=== PATIENT | female | born 1935 | race Caucasian/White ===

== ENCOUNTER 2019-10-24 13:22 | Outpatient (RCR) | payer MEDICARE, BC, SELFPAY ==
[2019-10-24 14:17] LABS: Basophils % 0.5 %; Eosinophils % 0.5 %; Hematocrit 42.1 % (37.0-47.0); Hemoglobin 13.9 g/dL (11.5-15.3); Lymphocytes # 2.4 10^3/uL (0.8-4.8); Lymphocytes % 27.7 %; Mean Corpuscular Hemoglobin 36.4 pg (28.0-34.0); Mean Corpuscular Volume 110.2 fL (81-99); Mean Platelet Volume 10.5 fL (7.4-10.4); Monocytes # 0.6 10^3/uL (0.2-0.9); Monocytes % 7.3 %; Neutrophils # 5.6 10^3/uL (1.8-7.7); Neutrophils % 63.7 %; Nucleated Red Blood Cells % 0 %; Platelet Count 510 10^3/cmm (130-400); Red Blood Count 3.82 10^6/uL (4.1-5.3); White Blood Count 8.8 10^3/uL (4.0-10.0)
[2019-10-24 14:26] LABS: Alanine Aminotransferase 19 U/L (0-33); Albumin Level 4.4 g/dL (3.5-5.2); Alkaline Phosphatase 101 IU/L (35-105); Anion Gap 14.7 (5-19); Aspartate Amino Transferase 29 U/L (0-32); Blood Urea Nitrogen 28 mg/dL (8-23); Calcium 10.9 mg/Dl (8.8-10.2); Carbon Dioxide 27 mmol/L (22-29); Chloride 101 mmol/L (98-107); Globulin 2.9 g/dL (1.3-4.6); Glucose 106 mg/dL (74-106); Lactate Dehydrogenase 199 U/L (135-214); Potassium 4.7 mmol/L (3.5-5.1); Sodium 138 mmol/L (136-145); Total Bilirubin 0.4 mg/dL (0.15-1.2); Total Protein 7.3 g/dL (6.6-8.7)
== END 2019-11-16 23:59 | disposition home or self-care (01) ==
LOC: ONCMED 13:22
PROVIDERS: Family Provider Internal Medicine Medical Oncology; PCP Family Medicine; Visit Provider Internal Medicine Medical Oncology
DX: D45 Polycythemia vera (principal); K21.9 Gastro-esophageal reflux disease without esophagitis; M19.90 Unspecified osteoarthritis, unspecified site; F41.8 Other specified anxiety disorders; Z79.899 Other long term (current) drug therapy; Z79.82 Long term (current) use of aspirin; Z86.73 Personal history of transient ischemic attack (TIA), and cerebral infarction without residual deficits; Z87.891 Personal history of nicotine dependence
CPT/HCPCS: 80053; 83615; 85025; 99214

== ENCOUNTER 2019-11-28 09:19 | Outpatient (CLI) | payer MEDICARE, BC, SELFPAY ==
--- NOTE | 2019-11-28 09:24 | MM_ITS ---
WS: [id number] BILATERAL DIGITAL SCREENING MAMMOGRAPHY WITH CAD CLINICAL INFORMATION: SCREENING HISTORY: Screening mammogram. No current complaints. COMPARISON: September 15, 2018 TECHNIQUE: Bilateral CC and MLO views. FINDINGS: Scattered fibroglandular densities bilaterally. No suspicious focal mass, asymmetry, calcifications, or architectural distortion. No evidence of malignancy. MM/[id number] IMPRESSION: BI-RADS: 1-Negative FOLLOW UP: 1 Year Follow-up Recommend return to annual screening mammography.
== END 2019-11-28 09:20 | disposition home or self-care (01) ==
LOC: RADSHAW 09:20
PROVIDERS: Family Provider Internal Medicine Medical Oncology; PCP Family Medicine; Visit Provider Family Medicine
DX: Z12.31 Encounter for screening mammogram for malignant neoplasm of breast (principal)
CPT/HCPCS: 77067

== ENCOUNTER 2020-01-14 09:45 | Outpatient (CLI) | payer MEDICARE, BC, SELFPAY ==
[2020-01-14 18:22] LABS: Alanine Aminotransferase 14 U/L (0-33); Albumin Level 4.3 g/dL (3.5-5.2); Alkaline Phosphatase 88 IU/L (35-105); Anion Gap 17.2 (5-19); Aspartate Amino Transferase 29 U/L (0-32); Blood Urea Nitrogen 23 mg/dL (8-23); Calcium 10.6 mg/dL (8.5-10.5); Carbon Dioxide 26 mmol/L (22-29); Chloride 102 mmol/L (98-107); Globulin 2.4 g/dL (1.3-4.6); Glucose 45 mg/dL (65-115); Lactate Dehydrogenase 298 U/L (135-214); Osmolality Calculated 286 mOsm/kg (285-295); Potassium 4.2 mmol/L (3.5-5.1); Sodium 141 mmol/L (136-145); Total Bilirubin 0.5 mg/dL (0.15-1.2); Total Protein 6.7 g/dL (6.6-8.7)
[2020-01-14 18:28] LABS: Basophils # 0.1 10^3/uL (0.0-0.1); Basophils % 0.9 %; Eosinophils # 0.1 10^3/uL (0.0-0.8); Eosinophils % 1.3 %; Hematocrit 42.5 % (37.0-47.0); Hemoglobin 13.3 g/dL (11.5-15.3); Lymphocytes # 2.2 10^3/uL (0.8-4.8); Lymphocytes % 29.3 %; Mean Corpuscular HGB Conc 31.3 g/dL (30.0-36.0); Mean Corpuscular Hemoglobin 35.5 pg (28.0-34.0); Mean Corpuscular Volume 113.3 fL (81-99); Mean Platelet Volume 11.1 fL (7.4-10.4); Monocytes # 0.7 10^3/uL (0.2-0.9); Neutrophils # 4.5 10^3/uL (1.8-7.7); Neutrophils % 59.4 %; Nucleated Red Blood Cells % 0 %; Platelet Count 517 10^3/cmm (130-400); Red Blood Count 3.75 10^6/uL (4.1-5.3); White Blood Count 7.5 10^3/uL (4.0-10.0)
== END 2020-01-14 09:46 | disposition home or self-care (01) ==
LOC: ONCMED 01-15 07:09
PROVIDERS: Family Provider Internal Medicine Medical Oncology; PCP Family Medicine; Visit Provider Internal Medicine Medical Oncology
DX: D69.6 Thrombocytopenia, unspecified (principal)
CPT/HCPCS: 36415; 80053; 83615; 85025

== ENCOUNTER 2020-04-21 10:46 | Outpatient (CLI) | payer MEDICARE, BC, SELFPAY ==
[2020-04-21 11:34] LABS: Alanine Aminotransferase 16 U/L (0-33); Albumin Level 4.1 g/dL (3.5-5.2); Alkaline Phosphatase 99 IU/L (35-105); Anion Gap 14.8 (5-19); Aspartate Amino Transferase 28 U/L (0-32); Blood Urea Nitrogen 22 mg/dL (8-23); Calcium 10.4 mg/dL (8.5-10.5); Carbon Dioxide 26 mmol/L (22-29); Chloride 102 mmol/L (98-107); Globulin 3.1 g/dL (1.3-4.6); Glucose 106 mg/dL (65-115); Lactate Dehydrogenase 217 U/L (135-214); Osmolality Calculated 283 mOsm/kg (285-295); Potassium 4.8 mmol/L (3.5-5.1); Sodium 138 mmol/L (136-145); Total Bilirubin 0.4 mg/dL (0.15-1.2); Total Protein 7.2 g/dL (6.6-8.7)
[2020-04-21 11:49] LABS: Basophils # 0.1 10^3/uL (0.0-0.1); Basophils % 0.6 %; Eosinophils % 0.5 %; Hematocrit 42.9 % (37.0-47.0); Lymphocytes # 2.3 10^3/uL (0.8-4.8); Lymphocytes % 26.8 %; Mean Corpuscular HGB Conc 32.6 g/dL (30.0-36.0); Mean Corpuscular Hemoglobin 35.8 pg (28.0-34.0); Mean Corpuscular Volume 109.7 fL (81-99); Mean Platelet Volume 10.7 fL (7.4-10.4); Monocytes # 0.6 10^3/uL (0.2-0.9); Monocytes % 7.1 %; Neutrophils # 5.7 10^3/uL (1.8-7.7); Neutrophils % 64.8 %; Nucleated Red Blood Cells % 0 %; Platelet Count 456 10^3/cmm (130-400); Red Blood Count 3.91 10^6/uL (4.1-5.3); Red Cell Distribution Width 14.4 % (12.1-15.1); White Blood Count 8.7 10^3/uL (4.0-10.0)
== END 2020-04-21 10:47 | disposition home or self-care (01) ==
LOC: ONCMED 10:50
PROVIDERS: PCP Family Medicine; Visit Provider Internal Medicine Medical Oncology
DX: D45 Polycythemia vera (principal); K21.9 Gastro-esophageal reflux disease without esophagitis; M19.90 Unspecified osteoarthritis, unspecified site; F41.8 Other specified anxiety disorders; Z79.899 Other long term (current) drug therapy; Z86.73 Personal history of transient ischemic attack (TIA), and cerebral infarction without residual deficits; Z87.891 Personal history of nicotine dependence
CPT/HCPCS: 80053; 83615; 85025; 99214

== ENCOUNTER 2020-07-22 09:27 | Outpatient (CLI) | payer MEDICARE, BC, SELFPAY ==
[2020-07-22 10:24] LABS: Basophils % 0.7 %; Eosinophils % 0.5 %; Hematocrit 41.1 % (37.0-47.0); Hemoglobin 13.4 g/dL (11.5-15.3); Lymphocytes # 1.9 10^3/uL (0.8-4.8); Lymphocytes % 32.1 %; Mean Corpuscular HGB Conc 32.6 g/dL (30.0-36.0); Mean Corpuscular Hemoglobin 35.5 pg (28.0-34.0); Mean Platelet Volume 10.3 fL (7.4-10.4); Monocytes # 0.5 10^3/uL (0.2-0.9); Monocytes % 8.6 %; Neutrophils # 3.44 10^3/uL (1.8-7.7); Neutrophils % 57.8 %; Nucleated Red Blood Cells % 0 %; Platelet Count 434 10^3/cmm (130-400); Red Blood Count 3.77 10^6/uL (4.1-5.3); Red Cell Distribution Width 15.1 % (12.1-15.1)
== END 2020-07-22 09:28 | disposition home or self-care (01) ==
LOC: ONCMED 09:31
PROVIDERS: PCP Family Medicine; Visit Provider Internal Medicine Medical Oncology
DX: D45 Polycythemia vera (principal)
CPT/HCPCS: 85025

== ENCOUNTER 2020-12-29 12:20 | Outpatient (CLI) | payer MEDICARE, BC, SELFPAY ==
[2020-12-29 13:55] LABS: Basophils # 0.1 10^3/uL (0.0-0.1); Basophils % 0.6 %; Eosinophils # 0.1 10^3/uL (0.0-0.8); Eosinophils % 0.9 %; Hematocrit 43.1 % (37.0-47.0); Hemoglobin 13.9 g/dL (11.5-15.3); Lymphocytes # 2.4 10^3/uL (0.8-4.8); Lymphocytes % 30.9 %; Mean Corpuscular HGB Conc 32.3 g/dL (30.0-36.0); Mean Corpuscular Hemoglobin 35.7 pg (28.0-34.0); Mean Corpuscular Volume 110.8 fL (81-99); Mean Platelet Volume 10.8 fL (7.4-10.4); Monocytes # 0.6 10^3/uL (0.2-0.9); Monocytes % 7.2 %; Neutrophils # 4.65 10^3/uL (1.8-7.7); Neutrophils % 60.1 %; Nucleated Red Blood Cells % 0 %; Platelet Count 451 10^3/cmm (130-400); Red Blood Count 3.89 10^6/uL (4.1-5.3); Red Cell Distribution Width 14.3 % (12.1-15.1); White Blood Count 7.7 10^3/uL (4.0-10.0)
[2020-12-29 14:11] LABS: Alanine Aminotransferase 14 U/L (0-33); Albumin Level 4.1 g/dL (3.5-5.2); Alkaline Phosphatase 112 IU/L (35-105); Anion Gap 11.6 (5-19); Aspartate Amino Transferase 22 U/L (0-32); Blood Urea Nitrogen 17 mg/dL (8-23); Calcium 9.8 mg/dL (8.5-10.5); Carbon Dioxide 28 mmol/L (22-29); Chloride 104 mmol/L (98-107); Globulin 2.9 g/dL (1.3-4.6); Glucose 93 mg/dL (65-115); Osmolality Calculated 289 mOsm/kg (285-295); Potassium 4.6 mmol/L (3.5-5.1); Sodium 139 mmol/L (136-145); Total Bilirubin 0.4 mg/dL (0.15-1.2)
[2020-12-29 14:12] LABS: Lactate Dehydrogenase 212 U/L (135-214)
== END 2020-12-29 12:21 | disposition home or self-care (01) ==
PROVIDERS: PCP Family Medicine; Visit Provider Internal Medicine Medical Oncology
DX: D45 Polycythemia vera (principal); Z79.82 Long term (current) use of aspirin; Z86.73 Personal history of transient ischemic attack (TIA), and cerebral infarction without residual deficits; Z79.899 Other long term (current) drug therapy
CPT/HCPCS: 36415; 80053; 83615; 85025; 99214

== ENCOUNTER 2021-04-06 10:32 | Outpatient (CLI) | payer MEDICARE, BC, SELFPAY ==
[2021-04-06 11:00] LABS: Basophils # 0.1 10^3/uL (0.0-0.1); Basophils % 0.7 %; Eosinophils % 0.4 %; Hematocrit 41.4 % (37.0-47.0); Hemoglobin 13.4 g/dL (11.5-15.3); Lymphocytes # 2.2 10^3/uL (0.8-4.8); Lymphocytes % 32.4 %; Mean Corpuscular HGB Conc 32.4 g/dL (30.0-36.0); Mean Corpuscular Hemoglobin 36.6 pg (28.0-34.0); Mean Corpuscular Volume 113.1 fL (81-99); Mean Platelet Volume 10.3 fL (7.4-10.4); Monocytes # 0.4 10^3/uL (0.2-0.9); Neutrophils # 4.12 10^3/uL (1.8-7.7); Neutrophils % 60.2 %; Nucleated Red Blood Cells % 0 %; Platelet Count 403 10^3/cmm (130-400); Red Blood Count 3.66 10^6/uL (4.1-5.3); Red Cell Distribution Width 14.7 % (12.1-15.1); White Blood Count 6.9 10^3/uL (4.0-10.0)
== END 2021-04-06 10:33 | disposition home or self-care (01) ==
LOC: ONCMED 10:36
PROVIDERS: PCP Family Medicine; Visit Provider Internal Medicine Medical Oncology
DX: D45 Polycythemia vera (principal); D47.3 Essential (hemorrhagic) thrombocythemia
CPT/HCPCS: 36415; 85025

== ENCOUNTER 2021-04-13 12:15 | Outpatient (CLI) | payer MEDICARE, BC, SELFPAY ==
--- NOTE | 2021-04-13 12:59 | MM_ITS ---
WS: [id number] BILATERAL DIGITAL SCREENING MAMMOGRAPHY WITH CAD CLINICAL INFORMATION: SCREEN HISTORY: Screening mammogram. No current complaints. COMPARISON: November 28, 2019 TECHNIQUE: Bilateral CC and MLO views. FINDINGS: Scattered fibroglandular densities bilaterally. Long-term stability of the fibrotic asymmetry central right breast. No suspicious focal mass, asymmetry, calcifications, or architectural distortion. No e vidence of malignancy. MM/[id number] IMPRESSION: BI-RADS: 2-Benign FOLLOW UP: 1 Year Follow-up Recommend return to annual screening mammography.
== END 2021-04-13 12:16 | disposition home or self-care (01) ==
LOC: RADSHAW 12:29
PROVIDERS: PCP Family Medicine; Visit Provider Family Medicine
DX: Z12.31 Encounter for screening mammogram for malignant neoplasm of breast (principal)
CPT/HCPCS: 77067

== ENCOUNTER 2021-07-06 11:22 | Outpatient (CLI) | payer MEDICARE, BC, SELFPAY ==
[2021-07-06 11:57] LABS: Basophils % 0.6 %; Eosinophils % 0.3 %; Hematocrit 41.6 % (37.0-47.0); Hemoglobin 13.8 g/dL (11.5-15.3); Lymphocytes # 1.9 10^3/uL (0.8-4.8); Lymphocytes % 27.7 %; Mean Corpuscular HGB Conc 33.2 g/dL (30.0-36.0); Mean Corpuscular Hemoglobin 36.9 pg (28.0-34.0); Mean Corpuscular Volume 111.2 fl (81-99); Mean Platelet Volume 10.4 fL (7.4-10.4); Monocytes # 0.5 10^3/uL (0.2-0.9); Monocytes % 6.9 %; Neutrophils # 4.51 10^3/uL (1.8-7.7); Neutrophils % 64.4 %; Nucleated Red Blood Cells % 0 %; Platelet Count 440 10^3/cmm (130-400); Red Blood Count 3.74 10^6/uL (4.1-5.3); Red Cell Distribution Width 14.3 % (12.1-15.1)
[2021-07-06 12:16] LABS: Alanine Aminotransferase 11 U/L (0-33); Albumin Level 4.2 g/dL (3.5-5.2); Alkaline Phosphatase 102 IU/L (35-105); Anion Gap 11.4 (5-19); Aspartate Amino Transferase 21 U/L (0-32); Blood Urea Nitrogen 15 mg/dL (8-23); Calcium 9.8 mg/dL (8.5-10.5); Carbon Dioxide 26 mmol/L (22-29); Chloride 102 mmol/L (98-107); Globulin 2.9 g/dL (1.3-4.6); Glucose 96 mg/dL (65-115); Lactate Dehydrogenase 213 U/L (135-214); Osmolality Calculated 281 mOsm/kg (285-295); Potassium 4.4 mmol/L (3.5-5.1); Sodium 135 mmol/L (136-145); Total Bilirubin 0.5 mg/dL (0.15-1.2); Total Protein 7.1 g/dL (6.6-8.7)
== END 2021-07-06 11:23 | disposition home or self-care (01) ==
LOC: ONCMED 11:25
PROVIDERS: PCP Family Medicine; Visit Provider Internal Medicine Medical Oncology
DX: D45 Polycythemia vera (principal); Z86.73 Personal history of transient ischemic attack (TIA), and cerebral infarction without residual deficits; K21.9 Gastro-esophageal reflux disease without esophagitis; M19.90 Unspecified osteoarthritis, unspecified site; F41.9 Anxiety disorder, unspecified; F32.9 Major depressive disorder, single episode, unspecified; Z79.899 Other long term (current) drug therapy
CPT/HCPCS: 36415; 80053; 83615; 85025; 99214

== ENCOUNTER 2021-10-06 13:42 | Outpatient (CLI) | payer MEDICARE, BC, SELFPAY ==
[2021-10-06 14:14] LABS: Basophils # 0.1 10^3/uL (0.0-0.1); Basophils % 0.6 %; Eosinophils % 0.4 %; Hematocrit 41.9 % (37.0-47.0); Hemoglobin 13.7 g/dL (11.5-15.3); Lymphocytes # 2.6 10^3/uL (0.8-4.8); Lymphocytes % 26.9 %; Mean Corpuscular HGB Conc 32.7 g/dL (30.0-36.0); Mean Corpuscular Hemoglobin 35.6 pg (28.0-34.0); Mean Corpuscular Volume 108.8 fl (81-99); Mean Platelet Volume 10.4 fL (7.4-10.4); Monocytes # 0.7 10^3/uL (0.2-0.9); Neutrophils # 6.14 10^3/uL (1.8-7.7); Neutrophils % 64.9 %; Nucleated Red Blood Cells % 0 %; Platelet Count 489 10^3/cmm (130-400); Red Blood Count 3.85 10^6/uL (4.1-5.3); Red Cell Distribution Width 14.8 % (12.1-15.1); White Blood Count 9.5 10^3/uL (4.0-10.0)
== END 2021-10-06 13:43 | disposition home or self-care (01) ==
PROVIDERS: PCP Family Medicine; Visit Provider Internal Medicine Medical Oncology
DX: D45 Polycythemia vera (principal); D47.3 Essential (hemorrhagic) thrombocythemia
CPT/HCPCS: 36415; 85025

== ENCOUNTER 2022-01-01 09:50 | Outpatient (CLI) | payer MEDICARE, BC, SELFPAY ==
[2022-01-01 11:08] LABS: Basophils # 0.1 10^3/uL (0.0-0.1); Basophils % 0.8 %; Eosinophils # 0.1 10^3/uL (0.0-0.8); Eosinophils % 0.9 %; Hematocrit 44.5 % (37.0-47.0); Hemoglobin 14.5 g/dL (11.5-15.3); Lymphocytes # 1.7 10^3/uL (0.8-4.8); Lymphocytes % 25.4 %; Mean Corpuscular HGB Conc 32.6 g/dL (30.0-36.0); Mean Corpuscular Hemoglobin 35.6 pg (28.0-34.0); Mean Corpuscular Volume 109.3 fl (81-99); Mean Platelet Volume 10.8 fL (7.4-10.4); Monocytes # 0.5 10^3/uL (0.2-0.9); Monocytes % 7.1 %; Neutrophils # 4.37 10^3/uL (1.8-7.7); Neutrophils % 65.5 %; Nucleated Red Blood Cells % 0 %; Platelet Count 445 10^3/cmm (130-400); Red Blood Count 4.07 10^6/uL (4.1-5.3); Red Cell Distribution Width 15.4 % (12.1-15.1); White Blood Count 6.7 10^3/uL (4.0-10.0)
[2022-01-01 11:23] LABS: Alanine Aminotransferase 10 U/L (0-33); Albumin Level 4.4 g/dL (3.5-5.2); Alkaline Phosphatase 116 IU/L (35-105); Anion Gap 12.3 (5-19); Aspartate Amino Transferase 19 U/L (0-32); Blood Urea Nitrogen 20 mg/dL (8-23); Calcium 10.3 mg/dL (8.5-10.5); Carbon Dioxide 27 mmol/L (22-29); Chloride 103 mmol/L (98-107); Globulin 2.9 g/dL (1.3-4.6); Glucose 97 mg/dL (65-115); Lactate Dehydrogenase 167 U/L (135-214); Osmolality Calculated 289 mOsm/kg (285-295); Potassium 4.3 mmol/L (3.5-5.1); Sodium 138 mmol/L (136-145); Total Bilirubin 0.6 mg/dL (0.15-1.2); Total Protein 7.3 g/dL (6.6-8.7)
== END 2022-01-01 09:51 | disposition home or self-care (01) ==
PROVIDERS: PCP Family Medicine; Visit Provider Internal Medicine Medical Oncology
DX: D45 Polycythemia vera (principal)
CPT/HCPCS: 36415; 80053; 83615; 85025

== ENCOUNTER 2022-01-04 14:38 | Outpatient (CLI) | payer MEDICARE, BC, SELFPAY | END 2022-01-04 14:39 | disposition home or self-care (01) | PROVIDERS: PCP Family Medicine; Visit Provider Internal Medicine Medical Oncology | DX: D45 Polycythemia vera (principal); K21.9 Gastro-esophageal reflux disease without esophagitis; M19.90 Unspecified osteoarthritis, unspecified site; F41.9 Anxiety disorder, unspecified; F32.A Depression, unspecified; Z86.73 Personal history of transient ischemic attack (TIA), and cerebral infarction without residual deficits; Z79.899 Other long term (current) drug therapy | CPT/HCPCS: 99214 ==

== ENCOUNTER 2022-04-06 09:17 | Emergency (ER) | payer MEDICARE, BC, SELFPAY ==
[2022-04-06 09:44] VITALS: BP 182/70; PULSE 78; RESP 16; TEMP 36.6; O2SAT 97; BMI 21.9
--- NOTE | 2022-04-06 10:02 | XR_ITS ---
WS: [id number] Exam: XR shoulder RT min 2V* [id number] Date/Time of Exam: 04/06/2022 10:09 AM Reason For Exam: right shoulder injury comparison 12/15/2018 There is a fracture at the junction of the middle and distal thirds of the right clavicle. There is s uperior displacement of the proximal fragment with [id number] apposition. There may also be a recen t fracture of the posterior right second rib. Several additional old right rib fractures are seen. No shoulder dislocation. Degenerative change at the glenohumeral joint. Slight gapping of the AC joint. Normal soft tissues. XR/XR shoulder RT min 2V* [id number] IMPRESSION: 1. Displaced fracture at the junction of the middle and distal thirds of the ri ght clavicle with [id number] apposition. 2. Fracture of the posterior right second rib that may be a recent fracture. Ad ditional healed fractures of the right rib cage are noted. 3. Degenerative changes. Gapping of the AC joint.
--- NOTE | 2022-04-06 10:14 | ED_ITS ---
HPI - Extremity Problem General: Chief complaint: Extremity Injury, Upper Stated complaint: shoulder dislocation Time Seen by Provider: 04/06/22 10:14 Source: patient Mode of arrival: ambulatory Limitations: no limitations History of Present Illness: 86-year-old female who presented to the emergency room after being at a local clinic. She was seen there after a fall she landed on an outstretched right arm. She has severe shoulder pain with some swelling across the medial clavicle. Did an x-ray at the urgent care where she was seen and reported to the patient that she had a dislocated shoulder they attempted to reduce it unable to do so the patient was referred to the emergency room. She is she denies striking her head denies any other injury no wrist or arm pain. X-ray able to move the arm and demonstrates good range of motion with the exception of being able to AB duct and the limitation of flexion. She denies any shortness of breath or difficulty taking a deep breath. MD Complaint: other (Supraclavicular swelling) Onset (ago): minute(s) Pain Consistency: constant Location: right (Clavicle) Quality: sharp Radiation: distal Relieving factors: rest Exacerbating factors: range of motion and palpation Associated symptoms: Deny chest pain, fever(s) or rash Review of Systems Const: Denies: fever(s), chills, body aches, change in appetite, fatigue or malaise ENMT: Denies: throat pain, ear or mastoid pain, nasal discharge or nasal congestion Card: Denies: chest pain, edema, dyspnea on exertion or orthopnea Resp: Denies: dyspnea, productive cough or non-productive cough GI: Denies: abdominal pain, nausea, vomiting, hematemesis, coffee ground emesis, diarrhea, constipation, bloating, hematochezia or melena : Denies: flank pain, difficulty voiding, dysuria, urinary frequency or urinary urgency Skin/Breast: Denies: rash or pruritus Physical Exam Const: COMMON NORMALS: no acute distress GENERAL APPEARANCE: cooperative and comfortable ORIENTATION/CONSCIOUSNESS: Yes awake, Yes oriented to person, Yes oriented to place and Yes oriented to time HENMT: COMMON NORMALS: normocephalic, atraumatic and hearing grossly normal bilaterally HEAD & SCALP: normocephalic and atraumatic Neck/C-Spine: COMMON NORMALS: full ROM, no lymphadenopathy, supple and no JVD Resp: COMMON NORMALS: normal respiratory effort, No retractions, No use of accessory muscles and clear to auscultation bilaterally AUSCULTATION: clear to auscultation bilaterally Cardio: COMMON NORMALS: no JVD, regular rate, regular rhythm and No murmurs present (Cardio) RATE: regular rate RHYTHM: regular rhythm GI: COMMON NORMALS: Soft to palpation and No hepatosplenomegaly present AUSCULTATION: Yes normoactive bowel sounds PALPATION: Yes Soft to palpation, No Tenderness to palpation present (GI), No Guarding due to palpation present (GI) and Yes No hepatosplenomegaly present Extremity: OTHER: Obvious deformity of the right clavicle. No tenting of the skin. There is ecchymosis forming. Patient has good external and internal rotation he can flex and extend relatively well but cannot AB duct due to pain. 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 Neuro: SENSORIUM/ORIENTATION: Yes oriented to person, Yes oriented to place and Yes oriented to time Skin: COMMON NORMALS: no rashes or lesions noted GENERAL SKIN EXAM: no rashes or lesions noted Course Vital Signs: Vital signs: Vital Signs Temperature 97.9 F 04/06/22 09:44 Pulse Rate 78 04/06/22 09:44 Respiratory Rate 16 04/06/22 09:44 Blood Pressure 182/70 04/06/22 09:44 Pulse Oximetry 97 04/06/22 09:44 MDM - Extremity (Nontraumatic) Medical Decision Making Moderately displaced clavicle fracture will sling and refer to Ortho. She has tramadol to use at home that she is previously prescribed for pain. She is describing remarkably little pain as long as she leaves it immobilized. We will put her in a sling. Have her wear that until she is released. The x-ray read is a second rib fracture however given her mechanism of injury I do not believe she actually has a rib fracture and exam does not seem to support that is as well. Her mechanism was falling on an outstretched right hand and she was not struck in the back and she not having any difficulty breathing. Follow-up with Ortho return if has further problems. Medical Records I reviewed the patient's medical records. Lab Data I reviewed the patient's lab results. Radiology Impressions Shoulder X-Ray 04/06/22 10:02 IMPRESSION: 1. Displaced fracture at the junction of the middle and distal thirds of the right clavicle with [id number]-hyio apposition. 2. Fracture of the posterior right second rib that may be a recent fracture. Additional healed fractures of the right rib cage are noted. 3. Degenerative changes. Gapping of the AC joint. Discharge Plan Discharge Patient Disposition: Home Clinical Impression: Fracture, clavicle closed, shaft Condition: Stable Prescriptions: No Action hydroxyurea 500 mg capsule 500 mg PO DAILY Qty: 90 3RF Discharge Orders: Discharge ED (Routine); Ordered 04/06/22 Ordered By: Cooper Baumann Referrals: Don Haile MD [Primary Care Provider] - Patient Instructions: Opioid Safety Activity Restrictions/Additional Instructions: Case management make arrangements for follow-up with orthopedics. Wear sling whenever you are up and ambulatory may take it off while resting. Use previously prescribed tramadol for pain. Coding Level of Care Code ED Locket Maker for González Augustin
--- NOTE | 2022-04-06 11:30 | PC.SOCIAL ---
Addendum entered by Alem Chase 04/30/22 16:12: Patient had a follow up appointment scheduled for 04.08.22 with Adilson Ramirez at ortho - patient did attend appointment. Original Note: Ortho Follow-Up Message sent to orthopedics requesting follow up for clavicle fracture.
== END 2022-04-06 11:33 | disposition home or self-care (01) ==
PROVIDERS: Emergency Provider Family Medicine; PCP Family Medicine
DX: S42.021A Displaced fracture of shaft of right clavicle, initial encounter for closed fracture (principal); W19.XXXA Unspecified fall, initial encounter
CPT/HCPCS: 73030; 99283

== ENCOUNTER → 2022-04-08 10:49 | Outpatient (BNVA) | payer MEDICARE, BC, SELFPAY | PROVIDERS: PCP Family Medicine; Visit Provider Physician Assistant | DX: S42.021A Displaced fracture of shaft of right clavicle, initial encounter for closed fracture (principal); S52.501A Unspecified fracture of the lower end of right radius, initial encounter for closed fracture; X50.9XXA Other and unspecified overexertion or strenuous movements or postures, initial encounter; S22.31XA Fracture of one rib, right side, initial encounter for closed fracture | CPT/HCPCS: 73030; 73110; 99203 ==

== ENCOUNTER 2022-04-08 15:53 | Outpatient (CLI) | payer MEDICARE, BC, SELFPAY | END 2022-04-08 15:54 | disposition home or self-care (01) | LOC: SPT 15:53 | PROVIDERS: PCP Family Medicine; Visit Provider Physician Assistant | DX: Z46.89 Encounter for fitting and adjustment of other specified devices (principal); M25.531 Pain in right wrist | CPT/HCPCS: 97760; L3908 ==

== ENCOUNTER 2022-04-09 12:33 | Oncology outpatient (recurring) (ONCR) | payer MEDICARE, BC, SELFPAY ==
[2022-04-09 13:09] LABS: Basophils # 0.1 10^3/uL (0.0-0.1); Basophils % 0.6 %; Eosinophils % 0.4 %; Hematocrit 40.5 % (37.0-47.0); Hemoglobin 13.9 g/dL (11.5-15.3); Lymphocytes % 25.5 %; Mean Corpuscular HGB Conc 34.3 g/dL (30.0-36.0); Mean Corpuscular Hemoglobin 36.5 pg (28.0-34.0); Mean Corpuscular Volume 106.3 fl (81-99); Mean Platelet Volume 10.8 fL (7.4-10.4); Monocytes # 0.8 10^3/uL (0.2-0.9); Monocytes % 9.5 %; Neutrophils # 5.08 10^3/uL (1.8-7.7); Neutrophils % 63.6 %; Nucleated Red Blood Cells % 0 %; Platelet Count 451 10^3/cmm (130-400); Red Blood Count 3.81 10^6/uL (4.1-5.3); Red Cell Distribution Width 14.6 % (12.1-15.1)
== END 2022-04-15 23:59 | disposition home or self-care (01) ==
PROVIDERS: PCP Family Medicine; Visit Provider Internal Medicine Medical Oncology
DX: D45 Polycythemia vera (principal)
CPT/HCPCS: 36415; 85025

== ENCOUNTER → 2022-04-22 10:52 | Outpatient (BNVA) | payer MEDICARE, BC, SELFPAY | PROVIDERS: PCP Family Medicine; Visit Provider Physician Assistant | DX: S42.021D Displaced fracture of shaft of right clavicle, subsequent encounter for fracture with routine healing (principal); S52.551D Other extraarticular fracture of lower end of right radius, subsequent encounter for closed fracture with routine healing; X58.XXXD Exposure to other specified factors, subsequent encounter; M19.041 Primary osteoarthritis, right hand | CPT/HCPCS: 73030; 73100; 99213 ==

== ENCOUNTER → 2022-05-20 08:32 | Outpatient (BNVA) | payer MEDICARE, BC, SELFPAY | PROVIDERS: PCP Family Medicine; Visit Provider Physician Assistant | DX: S52.551D Other extraarticular fracture of lower end of right radius, subsequent encounter for closed fracture with routine healing (principal); S42.021D Displaced fracture of shaft of right clavicle, subsequent encounter for fracture with routine healing; S22.31XD Fracture of one rib, right side, subsequent encounter for fracture with routine healing; X58.XXXD Exposure to other specified factors, subsequent encounter | CPT/HCPCS: 73000; 73100; 99213 ==

== ENCOUNTER → 2022-06-17 08:03 | Outpatient (BNVA) | payer MEDICARE, BC, SELFPAY | PROVIDERS: PCP Family Medicine; Visit Provider Physician Assistant | DX: S52.501D Unspecified fracture of the lower end of right radius, subsequent encounter for closed fracture with routine healing (principal); S42.001D Fracture of unspecified part of right clavicle, subsequent encounter for fracture with routine healing; S22.31XD Fracture of one rib, right side, subsequent encounter for fracture with routine healing; X58.XXXD Exposure to other specified factors, subsequent encounter | CPT/HCPCS: 73000; 73110; 99213 ==

== ENCOUNTER 2022-07-21 09:44 | Inpatient (IN) | payer MEDICARE, BC, SELFPAY ==
[2022-07-21] VITALS (11 sets, daily range): BP systolic 103–132; BP diastolic 44–75; PULSE 67–148; RESP 16–22; TEMP 36.4–36.8; O2SAT 93–98; BMI 20.5
--- NOTE | 2022-07-21 09:50 | XRR_ITS ---
PROCEDURE INFORMATION: Exam: XR Chest Exam date and time: 07/21/2022 10:06 AM Age: 86 years old Clinical indication: Cough and shortness of breath TECHNIQUE: Imaging protocol: Radiologic exam of the chest. Views: 1 view. COMPARISON: CR XR chest 1V [id number] 12/04/2018 11:42 AM FINDINGS: Lungs: Unremarkable. No consolidation. Pleural spaces: Unremarkable. No pleural effusion. No pneumothorax. Heart/Mediastinum: Small benign calcified lymph nodes are present in the left pulmonary hilum. Heart size is normal. Bones/joints: Unremarkable. XR/XR chest 1V portable [id number] IMPRESSION: No acute abnormality.
--- NOTE | 2022-07-21 09:50 | CT_ITS ---
WS: [id number] CT HEAD TECHNIQUE: Noncontrast CT of the head obtained from the skullbase to the vertex. CLINICAL INFORMATION: confusion COMPARISON: CT 2019 DLP: 931.[address] scans at [facility] use at least one of these dose optimization techniques: automated e xposure control; mA and/or kV adjustment per patient size (includes targeted exams where dose is matc hed to clinical indication); or iterative reconstruction. FINDINGS: No evidence of intracranial hemorrhage or mass effect. Ventricular system and basal cisterns are cui nt. Moderate small vessel changes with moderate parenchymal volume loss. Chronic lacunar infarcts RIG HT haile radiata and LEFT lateral basal ganglia. Intracranial vascular calcification. Paranasal sinuses and mastoid air cells are well aerated. .Normal visualized soft tissues. CT/CT head wo con* [id number] IMPRESSION: 1. No evidence of intracranial hemorrhage or mass effect. 2. Moderate small vessel changes with moderate parenchymal volume loss. 3. Chronic lacunar infarcts RIGHT haile radiata and LEFT lateral basal gangli a. 4. No acute intracranial findings.
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
[2022-07-21] MEDS: aspirin 81 mg Chew Tablet 324 MG PO (10:00)
--- NOTE | 2022-07-21 10:00 | ECG_ITS ---
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 Measurements Intervals [place] Rate: 139 P: GA: QRS: 39 QRSD: 89 T: -37 QT: 278 QTc: 423 Interpretive Statements ATRIAL FIBRILLATION WITH RAPID VENTRICULAR RESPONSE NONSPECIFIC ST & T-WAVE ABNORMALITY Compared to ECG 12/04/2018 11:40:02 T-wave abnormality now present Sinus rhythm no longer present Electronically Signed On 07-21-2022 20:54:14 CDT by Sussy Mckeon M.D. [email or web address] memorial community [email or web address] Integration Technologyguernsey memorial [email or web address]/store/[id number]
[2022-07-21] MEDS: dilTIAZem 5 mg/mL SDV 5 mL 10 MG IVP (10:11)
[2022-07-21 10:15] LABS: Basophils # 0.1 10^3/uL (0.0-0.1); Basophils % 0.3 %; Eosinophils % 0.1 %; Hematocrit 44.5 % (37.0-47.0); Hemoglobin 14.8 g/dL (11.5-15.3); Lymphocytes # 1.3 10^3/uL (0.8-4.8); Lymphocytes % 5.6 %; Mean Corpuscular HGB Conc 33.3 g/dL (30.0-36.0); Mean Corpuscular Hemoglobin 35.7 pg (28.0-34.0); Mean Corpuscular Volume 107.2 fl (81-99); Mean Platelet Volume 11.1 fL (7.4-10.4); Monocytes # 1.9 10^3/uL (0.2-0.9); Monocytes % 7.8 %; Neutrophils # 20.39 10^3/uL (1.8-7.7); Neutrophils % 85.5 %; Nucleated Red Blood Cells % 0 %; Platelet Count 410 10^3/cmm (130-400); Red Blood Count 4.15 10^6/uL (4.1-5.3); Red Cell Distribution Width 14.8 % (12.1-15.1); White Blood Count 23.8 10^3/uL (4.0-10.0)
[2022-07-21 10:18] LABS: Erythrocyte Sedimentation Rate < 1 mm/hr (0-15)
[2022-07-21 10:40] LABS: Troponin T (5th) Once 90 ng/L (0-10)
[2022-07-21 10:44] LABS: Alanine Aminotransferase 21 U/L (0-33); Albumin Level 3.9 g/dL (3.5-5.2); Alkaline Phosphatase 132 U/L (35-105); Aspartate Amino Transferase 37 U/L (0-32); Blood Urea Nitrogen 22 mg/dL (8-23); Calcium 10.3 mg/dL (8.5-10.5); Carbon Dioxide 25 mmol/L (22-29); Chloride 100 mmol/L (98-107); Globulin 2.6 g/dL (1.3-4.6); Glucose 146 mg/dL (65-115); Osmolality Calculated 290 mOsm/kg (285-295); Sodium 137 mmol/L (136-145); Total Protein 6.5 g/dL (6.6-8.7)
[2022-07-21 10:55] LABS: Anion Gap 15.8 (5-19); Potassium 3.8 mmol/L (3.5-5.1)
[2022-07-21 10:57] LABS: Creatine Phosphokinase 680 U/L (26-192)
[2022-07-21 12:53] LABS: Adenovirus Not Detected (NOT DETECT); Chlamydia Pneumoniae Not Detected (NOT DETECT); Coronavirus 229E,HKU1,NL63,OC4 Not Detected (NOT DETECT); Human Metapneumovirus Not Detected (NOT DETECT); Human Rhinovirus/Enterovirus Not Detected (NOT DETECT); Influenza A Not Detected (NOT DETECT); Influenza A H1 Not Detected (NOT DETECT); Influenza A H1-2009 Not Detected (NOT DETECT); Influenza A H3 Not Detected (NOT DETECT); Influenza B Not Detected (NOT DETECT); Mycoplasma Pneumoniae Not Detected (NOT DETECT); Parainfluenza Virus Type 1 Not Detected (NOT DETECT); Parainfluenza Virus Type 2 Not Detected (NOT DETECT); Parainfluenza Virus Type 3 Not Detected (NOT DETECT); Parainfluenza Virus Type 4 Not Detected (NOT DETECT); Respiratory Syncytial Virus A Not Detected (NOT DETECT); Respiratory Syncytial Virus B Not Detected (NOT DETECT); SARS-COV-2 Not Detected (NOT DETECT)
--- NOTE | 2022-07-21 12:59 | ECG_ITS ---
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 Measurements Intervals [place] Rate: 74 P: 56 [place]: 125 QRS: 30 QRSD: 81 T: 28 QT: 398 QTc: 443 Interpretive Statements SINUS RHYTHM Compared to ECG 07/21/2022 10:00:21 Atrial fibrillation no longer present T-wave abnormality no longer present Electronically Signed On 07-21-2022 20:59:38 CDT by Sussy Mckeon M.D. [email or web address] general [email or web address] Pharmaceuticalsselect medical clevel[facility], [email or web address].[email or web address]/store/[id number]
--- NOTE | 2022-07-21 13:12 | PM.HP ---
Providers/Chief Complaint Admitting Physician: Nitin Soliz Primary Care Provider: Don Haile MD Chief Complaint: FALL History of Present Illness Adia Tran is a 86 year old female who presents to the emergency department with complaints of weakness and fall. Apparently she fell sometime last night, laid on the floor until this morning. Patient herself cannot remember the events. In the emergency department she was found to be in atrial fibrillation with rapid ventricular rate, which converted to sinus rhythm with 10 mg of diltiazem IV. Daughter is present with her currently, but does not live with her. There is no known past history of atrial fibrillation. Daughter reports that her mother does have history of imbalance, falls, dementia. She is also had significant arthritis and does not get around well and was recently started on prednisone 10 mg daily for this. There is no history of recent illness, blood in stool, black or tarry stools, chest pains, palpitations. However, secondary to history of cognitive impairment that is at least moderate history is limited. She does relate that she accidentally burned herself on the heater yesterday, and is worried about that. Burn occurred on the left anterior thigh and left elbow. When the emergency department tried to ambulate her, it was evident that she had significant weakness, but no focal pain. Daughter alerts me she usually ambulates with a walker. Review of Systems General: Reports: 10 or more systems reviewed and unremarkable except in HPI and below Const: Reports: fatigue; Denies: fever(s) or chills Eyes: Denies: change in vision ENMT: Denies: throat pain Card: Denies: chest pain Resp: Denies: dyspnea GI: Reports: heartburn; Denies: abdominal pain, nausea, vomiting, hematochezia or melena : Denies: flank pain Musc: Denies: neck pain Skin/Breast: Denies: rash Neuro: Denies: headache(s) Psych: Denies: anxiety or depression Endo: Denies: polyuria Jag/Lymph: Denies: easy bruising All/Imm: Denies: urticaria Medications/Allergies Home Medications Medication Instructions Recorded Confirmed Last Taken Type hydroxyurea 500 mg capsule 500 mg PO DAILY #90 caps 02/22/22 07/21/22 07/20/22 Rx aspirin 81 mg tablet,delayed 81 mg PO DAILY 04/08/22 07/21/22 07/20/22 History release (Rashad Low Dose Aspirin) atorvastatin 10 mg tablet 10 mg PO DAILY 04/08/22 07/21/22 07/20/22 History citalopram 10 mg tablet (Celexa) 10 mg PO DAILY 04/08/22 07/21/22 07/20/22 History cock up splint #1 ea 04/08/22 07/21/22 Unknown Rx prednisone 10 mg tablet 10 mg PO DAILY 07/21/22 07/21/22 07/20/22 History Allergies Allergy/AdvReac Type Severity Reaction Status Date / Time iodine Allergy Unknown Verified 07/21/22 10:59 PFSH Acute PFSH: Medical History (Updated 07/21/22 @ 13:57 by Nitin Soliz MD) Cognitive impairment 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 Degenerative joint disease Depression GERD (gastroesophageal reflux disease) Hyperlipidemia Polycythemia Surgical History (Updated 07/21/22 @ 13:44 by Nitin Soliz MD) History of cataract surgery History of hysterectomy Family History (Updated 07/21/22 @ 13:44 by Nitin Soliz MD) Other CAD (coronary artery disease) Cancer Social History (Updated 07/21/22 @ 13:44 by Nitin Soliz MD) Smoking and tobacco status: never smoked Alcohol intake: never Vitals/I&O/Wt Last Vital Signs Temp 98.0 F 07/21/22 09:47 Pulse 74 07/21/22 11:25 Resp 18 07/21/22 09:47 BP 132/70 07/21/22 11:25 Pulse Ox 95 07/21/22 09:47 O2 Del Method 07/21/22 09:47 Weight last 48 hrs Weight 54.431 kg Physical Exam Narrative: General exam is a white female, conversant, who appears to be at least mildly confused. She cannot recall the events of yesterday. HEENT atraumatic and normocephalic. Pupils equally round. Oropharynx clear. Neck is supple no lymphadenopathy or thyromegaly Cardiovascular regular rate and rhythm without murmur, no S3 or S4 Lungs clear no wheezing or crackles Abdomen is soft nontender positive bowel sounds Extremities no cyanosis clubbing or edema, cap refill brisk Skin second-degree burn, left thigh and very small area left elbow Neuro slight weakness right side which is reported to be chronic Data : 07/21/22 10:04 07/21/22 10:04 Other Labs: Initial EKG demonstrates atrial fibrillation with rapid ventricular rate, normal axis, flipped T waves V4 through [address]-T wave changes. Repeat EKG following spontaneous cardioversion after Cardizem dose given his normal sinus rhythm, normal axis, no acute changes. Some ectopy is noted in the ER. It is unclear if this is short run of nonsustained ventricular tachycardia or atrial fibrillation with a Guillen C. CT head no acute findings, old lacunar infarcts are noted Chest x-ray no infiltrate, atherosclerotic disease is noted Urinalysis pending LFTs normal with the exception of alk phos of 132 and AST of 37 Glucose elevated 146 CK6 80 Troponin 90 Albumin 3.9 Coronavirus negative A&P Assessment and plan (1) Atrial fibrillation with RVR: Atrial fibrillation with rapid ventricular rate, noted on presentation Converted with Cardizem 10 mg IV Initiate metoprolol 12.5 mg now, then 25 mg twice daily thereafter Monitor on telemetry Discussed with them long-term anticoagulation, currently family is not in favor of this secondary to repetitive falls Continue aspirin Check echo Check TSH Question nonsustained ventricular tachycardia in the ER. Magnesium and potassium level checked and normal. Continue to monitor. (2) Acute dehydration: Hydration (3) Fall: Unknown etiology May be secondary to weakness, arrhythmia, or both Physical therapy evaluation Known history of degenerative joint disease which could also have contributed. (4) Weakness: Exact etiology unknown Physical therapy consultation Does not appear to have had a CVA Reduce prednisone dose to 5 mg daily (5) Leukocytosis: Unknown etiology Urinalysis has not yet been received. If evidence of UTI would also consider blood culture. No history of fever. No antibiotics given yet but certainly will be should urinalysis indicate infection. Other etiology could be stress after fall, time down, recent initiation of prednisone (6) Burn: Second-degree burn noted left thigh, left elbow. Initiate bacitracin at least twice a day Tetanus booster Follow closely (7) Hyperglycemia: Check hemoglobin A1c (8) Elevated troponin: Patient with elevated troponin on arrival. This is likely secondary to atrial fibrillation with rapid ventricular rate, and does not represent a myocardial infarction. No EKG changes are noted following resolution of atrial fibrillation after 10 of Cardizem IV. Monitor on telemetry Check echocardiogram Trend troponins Aspirin. Hold statin secondary to rhabdo Repeat troponin came back while I was dictating this and significant elevation of 217 now. Provide full dose anticoagulation currently. (9) Cognitive impairment: Patient with history of cognitive impairment, slowly worsening over years TSH, B12 will be checked Continue close follow-up with primary care provider (10) CVA (cerebral vascular accident): Patient with past history of CVA. No acute findings on CT and no changes in neurologic exam from baseline Continue aspirin, hold statin secondary to rhabdo (11) Rhabdomyolysis: Hydrate Repeat CK tomorrow Plan Elevated MCV. Check TSH, B12, folate. Likely secondary to hydroxyurea History of polycythemia. It does not appear she has followed up since 2019. Multiple other medical problems as outlined in past medical history Allow natural Lovenox for DVT prophylaxis Attestations Medical Necessity Statement*: Will require less than 2 midnight stay for evaluation of weakness, fall, mild rhabdo, atrial fibrillation now resolved Coding Level of Care Code Acute Computer Security Coordinator for [facility] Fwd Diagnoses Atrial fibrillation with RVR I48.91 Acute dehydration E86.0 Fall W19.XXXA Weakness R53.1 Leukocytosis D72.829 Burn T30.0 Hyperglycemia R73.9 Elevated troponin R77.8 Cognitive impairment R41.89 CVA (cerebral vascular accident) I63.9 Rhabdomyolysis M62.82
[2022-07-21 13:22] LABS: Estmated Average Glucose 111; Hemoglobin A1C 5.5 % (4.0-6.0)
[2022-07-21] MEDS: bacitracin ointment 28 gm TOPICAL ×2 (13:25→21:28)
[2022-07-21] MEDS: tetanus-diphtheria tox (adult) 0.5 mL SDV IM (13:26)
[2022-07-21] MEDS: metoprolol tartrate 25 mg Tablet 12.5 MG PO (13:27)
[2022-07-21 13:40] LABS: Thyroid Stimulating Hormone 1.27 uIU/mL (0.27-4.20); Vitamin B12 519 pg/mL (232-1245)
[2022-07-21 13:59] LABS: Troponin 5 2HR 216.9 ng/L (0-10)
[2022-07-21 14:01] LABS: Folate Level > 20.0 ng/mL (4.8-37.3)
[2022-07-21 14:14] LABS: Add Urine Microscopic? YES; Bilirubin Urine Neg (Negative); Blood Urine 2+ (Negative); Glucose Urine UA Norm (Normal); Ketones Urine Negative (Negative); Leukocyte Esterase Urine Negative (Negative); Nitrate Urine Negative (Negative); Protein Urine Neg (Negative); Urine Appearance Clear (CLEAR); Urine Color Yellow (Yellow); Urobilinogen Urine Norm (Negative); pH Urine 5 (5-7)
[2022-07-21 14:15] LABS: Add Urine Culture? No; Bacteria Urine TRACE /hpf; RBC Urine RARE /hpf (0-2); WBC Urine 0-4 /hpf (0-5)
--- NOTE | 2022-07-21 14:45 | USCV_ITS ---
Tran Adia Age: 86 Gender: F : 1935 Exam Date: 07/21/2022 16:49 Ordering Phys: Nitin Soliz MD Technologist: Cedrick Rios [place] [facility] [place]: Elevated troponin BP: 113 / 52 HR: 73 Rhythm: Sinus Technical Quality: Adequate MEASUREMENTS (Male / Female) Normal Values 2D ECHO LV Diastolic Diameter PLAX 4.6 cm 4.2 - 5.9 / 3.9 - 5.3 cm LV Systolic Diameter PLAX 3.1 cm IVS Diastolic Thickness 0.7 cm 0.6 - 1.0 / 0.6 - 0.9 cm IVS Systolic Thickness 1.0 cm LVPW Diastolic Thickness 1.1 cm 0.6 - 1.0 / 0.6 - 0.9 cm LVPW Systolic Thickness 1.3 cm LVOT Diameter 2.0 cm LV Ejection Fraction 2D Teich 61.3 % LV Ejection Fraction MOD 2C 63.2 % LV Ejection Fraction 2C AL 66.0 % LA Diameter 3.0 cm LA Width 3.5 cm LA Height 4.6 cm RA Width 3.8 cm RA Height 3.7 cm Aorta at Sinotubular Diameter 1.8 cm IVC Diameter 1.4 cm M-MODE Aortic Annulus Diameter 2.3 cm LA Ao Ratio MM 1.3 MV E Point Septal Separation 0.6 cm DOPPLER AV Peak Velocity 125.0 cm/s LVOT Peak Velocity 79.0 cm/s AV Area Cont Eq vti 2.1 cm squared AV Area Cont Eq pk 2.0 cm squared MV Peak Velocity 137.0 cm/s MV Area PHT 6.5 cm squared Mitral E to A Ratio 0.9 MV E' Velocity 41.8 cm/s Mitral E to MV E' Ratio 13.9 Mitral E to LV E' Lateral Ratio 12.8 Mitral E to LV E' Septal Ratio 15.5 TR Peak Velocity 270.5 cm/s TR Peak Gradient 29.3 mmHg TR Mean Velocity 234.5 cm/s TR Mean Gradient 22.3 mmHg TR Velocity Time Integral 79.5 cm Right Atrial Pressure 3.0 mmHg Pulmonary Artery Systolic Pressu 32.3 mmHg PV Peak Velocity 85.0 cm/s RV Acceleration Time 0.1 s RV Ejection Time 0.3 s RV AcT/ET 0.4 FINDINGS Left Ventricle Normal left ventricular size, systolic function and wall thickness, with no regional wall motion abnormalities. Left ventricular ejection fraction is estimated at 60 %. Grade II diastolic dysfunction, moderately elevated filling pressures. Right Ventricle Normal right ventricular size and systolic function. Right ventricular systolic pressure 36 mmHg. Right Atrium Normal right atrial size. Left Atrium Mildly increased left atrial size. Mitral Valve Structurally normal mitral valve. No mitral valve stenosis. Mild mitral valve regurgitation. Aortic Valve Structurally normal trileaflet aortic valve. No aortic valve stenosis. No aortic valve regurgitation. Tricuspid Valve Structurally normal tricuspid valve. No tricuspid valve stenosis. Mild tricuspid valve regurgitation. Pulmonic Valve Structurally normal pulmonic valve. No pulmonary valve stenosis. Trace pulmonary valve regurgitation. Pericardium No pericardial effusion. Aorta Normal size aortic root and proximal ascending aorta. IVC Normal IVC dimension with >50% respiratory change of the inferior vena cava. CONCLUSIONS 1. Normal left ventricular size, systolic function and wall thickness, with no regional wall motion abnormalities. Left ventricular ejection fraction is estimated at 60 %. Grade II diastolic dysfunction, moderately elevated filling pressures. 2. Mild mitral and tricuspid valve regurgitation. 3. Pulmonary artery pressure estimated at 36 mm Hg. 4. No significant change when compared to study dated 01/04/2019. Marlen Colón MD (Electronically Signed) Final Date: 21 July 2022 18:29 S
[2022-07-21] MEDS: enoxaparin 60 mg/0.6 mL Syringe 50 MG SUBCUT (14:57)
[2022-07-21] MEDS: sodium chloride 0.9% 1,000 ML 75 ML IV (15:27)
--- NOTE | 2022-07-21 16:35 | ECG_ITS ---
[facility] Test Date: 2022-07-21 Pat Name: Adia Tran Department: Room: Gender: Female [employer]ling [place]: : 1935 Requested By: Nitin Reilly Order Number: [id number] Stormy MD: Sussy Mckeon M.D. Measurements Intervals [place] Rate: 65 P: 57 LA: 133 QRS: 42 QRSD: 82 T: 1 QT: 398 QTc: 416 Interpretive Statements SINUS RHYTHM NONSPECIFIC T-WAVE ABNORMALITY Compared to ECG 07/21/2022 10:00:21 Atrial fibrillation no longer present T-wave abnormality still present Electronically Signed On 07-21-2022 20:59:04 CDT by Sussy Mckeon M.D. [email or web address]
[2022-07-21 17:03] LABS: Troponin 5 6HR 370.3 ng/L (0-10)
[2022-07-21] MEDS: clopidogrel 300 mg Tablet PO (18:12)
[2022-07-21] MEDS: metoprolol tartrate 25 mg Tablet PO (20:50)
--- NOTE | 2022-07-21 23:01 | PC.NURSE ---
patient c/o not being able to sleep and has not been able to sleep for a few days. Spoke with Dr Moore and received telephone order to give Xanax 0.25mg PO once. RBVO
[2022-07-21] MEDS: ALPRAZolam 0.5 mg Tablet 0.25 MG PO (23:14)
[2022-07-22] VITALS (9 sets, daily range): BP systolic 112–130; BP diastolic 53–66; PULSE 0–80; RESP 16–22; TEMP 36.1–36.7; O2SAT 94–100
--- NOTE | 2022-07-22 00:46 | PC.NURSE ---
patient c/o low back pain lying in bed. Assisted patient x2 up to recliner. Laid patient back in chair. Patient stated, I can probably sleep now. Patient does appear more comfortable and drifted back to sleep. Will ctoninue to monitor.
[2022-07-22] MEDS: enoxaparin 60 mg/0.6 mL Syringe 50 MG SUBCUT ×2 (02:17→17:31)
[2022-07-22] MEDS: sodium chloride 0.9% 1,000 ML 75 ML IV ×2 (02:17→17:31)
--- NOTE | 2022-07-22 06:02 | PC.NURSE ---
Patient is very confused. Patient up in room to bathroom without assistance. Pt has pulled out her IV, telemetry and boyce catheter. She did sleep for a while after xanax as ordered and documented but for short periods at a time. Assisted patient back to bed x4 assist. Patient not wanting to return to bed. IV replaced in left forearm. Bed alarm set. Dr Moore on the floor. Informed doctor of patient behaviour. no orders at this time.
--- NOTE | 2022-07-22 08:04 | XR_ITS ---
WS: [id number] XR foot LT 2V [id number] REASON FOR EXAM: bruising FINDINGS: Nondisplaced transverse fracture through base of the proximal phalanx of the second toe. Moderate changes of osteoarthropathy in the DIP and PIP joints of the toes. mild osteoarthropathy in the MP joint of the great toe. Mild degenerative arthropathy in the mid and hindfoot. XR/XR foot LT 2V [id number] IMPRESSION: Fracture the second toe as above.
--- NOTE | 2022-07-22 08:13 | PM.PN ---
Subjective Subjective: Adia reports she feels okay this morning. No chest pain no shortness of breath. Had significant confusion last night. Family had alerted me on admission she has some sundowning. She did have some Xanax last night. She removed her catheter and her IV during the night. Medications: Reviewed: Yes Vitals/I&O/Wt Last Vital Signs Temp 97.7 F 07/22/22 07:50 Pulse 58 L 07/22/22 07:50 Resp 18 07/22/22 07:50 BP 128/59 07/22/22 07:50 Pulse Ox 97 07/22/22 07:50 O2 Del Method 07/22/22 07:50 07/21/22 07/22/22 07/22/22 22:59 06:59 14:59 Intake Total 734.75 / 734.75 741.25 / 1476.00 Output Total 450 / 450 Balance 734.75 / 734.75 291.25 / 1026.00 Weight last 48 hrs Weight 54.431 kg Physical Exam Narrative: General exam is a white female, conversant, confused, in no distress. Cooperative with exam and able to answer questions. Neck is supple no lymphadenopathy or thyromegaly Cardiovascular regular rate and rhythm without murmur, no S3 or S4 Lungs clear no wheezing or crackles Abdomen is soft nontender positive bowel sounds Extremities no cyanosis clubbing. cap refill brisk. Bruising noted above toes on left foot Skin second-degree burn, left thigh and very small area left elbow Urinary Catheter Management: Whitaker: Cath Placed During This Visit: yes, but has since been removed by the nurse Reason for Continuing Indwelling Catheter: Acute Urinary Retention or Obstruction Urinary Catheter Date of Insertion: 07/21/22 Urinary Catheter Time of Insertion: 21:07 Date Urinary Catheter Removed: 07/22/22 Time Urinary Catheter Discontinued: 06:13 Data : 07/21/22 10:04 07/21/22 10:04 Micro: Microbiology 07/21/22 14:11 Blood Culture - Preliminary Blood SPECIMEN COLLECTED 07/21/22 14:11 Blood Culture - Preliminary Blood SPECIMEN COLLECTED A&P Assessment and plan (1) Atrial fibrillation with RVR: Atrial fibrillation with rapid ventricular rate, noted on presentation Converted with Cardizem 10 mg IV Continue metoprolol 25 mg twice daily Continue telemetry Placed on full anticoagulation even with history of fall considering non-ST elevation myocardial infarction Echocardiogram demonstrated preserved EF, diastolic dysfunction 2/4, mild valvular abnormalities TSH was checked and normal Nonsustained ventricular tachycardia noted in the ER, and recorded on the floor. Magnesium and potassium level checked and normal. Continue to monitor. (2) Acute dehydration: Continue hydration currently awaiting CK today (3) Fall: Unknown etiology May be secondary to weakness, arrhythmia, or both Physical therapy evaluation appreciated Known history of degenerative joint disease which could also have contributed. (4) Weakness: Exact etiology unknown Physical therapy consultation Does not appear to have had a CVA Reduce prednisone dose to 5 mg daily (5) Leukocytosis: Unknown etiology Urinalysis negative. No history of fever. No antibiotics given yet but certainly will be should urinalysis indicate infection. Other etiology could be stress after fall, time down, recent initiation of prednisone. Awaiting laboratory today (6) Burn: Second-degree burn noted left thigh, left elbow. Continue bacitracin at least twice a day Tetanus booster has been given (7) Hyperglycemia: Check hemoglobin A1c (8) Elevated troponin: With troponin trend, this patient appears to have had a non-ST elevation myocardial infarction. CK at 6 hours was 370, up from 90 on arrival. EKG on arrival with Batool garcia with RVR demonstrated ST depression and flipped T waves V4 through 6, which resolved when she spontaneously cardioverted after rate slowed with Cardizem. Full dose Lovenox initiated Loaded with Plavix, Plavix 75 mg daily Aspirin dose reduced to 81 mg daily Echocardiogram demonstrated preserved ejection fraction Had several episodes of nonsustained ventricular tachycardia, and electrolytes and magnesium were checked and normal. Beta-kyara was initiated Initiate statin after rhabdo starts to resolve Long discussion with family regarding how to proceed considering her comorbidities in the face of non-ST elevation myocardial infarction. They report she still lives on her own, has fair quality of life, and request further evaluation. Cardiology consultation was entered. (9) Cognitive impairment: Patient with history of cognitive impairment, slowly worsening over years TSH, B12 normal Continue close follow-up with primary care provider (10) CVA (cerebral vascular accident): Patient with past history of CVA. No acute findings on CT and no changes in neurologic exam from baseline Continue aspirin, hold statin secondary to rhabdo (11) Rhabdomyolysis: Continue hydration Await CK level Plan Elevated MCV. TSH B12 and folate normal. Likely secondary to hydroxyurea Contusion left foot. Check foot x-ray History of polycythemia. It does not appear she has followed up since 2019. Multiple other medical problems as outlined in past medical history Allow natural Lovenox for DVT prophylaxis Attestations Medical Necessity Statement*: Needs continued hospitalization for evaluation of non-ST elevation myocardial infarction. Coding Level of Care Code Acute Metalizing Supervisor for [facility] Fwd Diagnoses Atrial fibrillation with RVR I48.91 Acute dehydration E86.0 Fall W19.XXXA Weakness R53.1 Leukocytosis D72.829 Burn T30.0 Hyperglycemia R73.9 Elevated troponin R77.8 Cognitive impairment R41.89 CVA (cerebral vascular accident) I63.9 Rhabdomyolysis M62.82
[2022-07-22 08:21] LABS: Basophils % 0.2 %; Eosinophils % 0.2 %; Hematocrit 41.4 % (37.0-47.0); Hemoglobin 13.6 g/dL (11.5-15.3); Lymphocytes # 2.2 10^3/uL (0.8-4.8); Lymphocytes % 12.8 %; Mean Corpuscular HGB Conc 32.9 g/dL (30.0-36.0); Mean Corpuscular Hemoglobin 36.1 pg (28.0-34.0); Mean Corpuscular Volume 109.8 fl (81-99); Mean Platelet Volume 10.9 fL (7.4-10.4); Monocytes # 1.7 10^3/uL (0.2-0.9); Monocytes % 9.9 %; Neutrophils # 13.33 10^3/uL (1.8-7.7); Neutrophils % 76.4 %; Nucleated Red Blood Cells % 0 %; Platelet Count 434 10^3/cmm (130-400); Red Blood Count 3.77 10^6/uL (4.1-5.3); Red Cell Distribution Width 15.5 % (12.1-15.1); White Blood Count 17.4 10^3/uL (4.0-10.0)
[2022-07-22 08:38] LABS: Albumin Level 3.2 g/dL (3.5-5.2); Alkaline Phosphatase 110 U/L (35-105); Blood Urea Nitrogen 22 mg/dL (8-23); Calcium 9.2 mg/dL (8.5-10.5); Carbon Dioxide 24 mmol/L (22-29); Chloride 106 mmol/L (98-107); Globulin 2.4 g/dL (1.3-4.6); Glucose 104 mg/dL (65-115); Magnesium 2.1 mg/dL (1.7-2.3); Osmolality Calculated 290 mOsm/kg (285-295); Sodium 138 mmol/L (136-145); Total Bilirubin 1.2 mg/dL (0.15-1.2); Total Protein 5.6 g/dL (6.6-8.7)
[2022-07-22 08:40] LABS: Anion Gap 11.8 (5-19); Potassium 3.8 mmol/L (3.5-5.1)
[2022-07-22 08:41] LABS: Alanine Aminotransferase 21 U/L (0-33); Aspartate Amino Transferase 37 U/L (0-32)
[2022-07-22 08:43] LABS: Creatine Phosphokinase 569 U/L (26-192)
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
[2022-07-22] MEDS: hydroxyurea 500 mg Capsule PO (10:14)
[2022-07-22] MEDS: predniSONE 5 mg Tablet PO (10:15)
[2022-07-22] MEDS: citalopram 20 mg Tablet 10 MG PO (10:15)
[2022-07-22] MEDS: clopidogrel 75 mg Tablet PO (10:15)
[2022-07-22] MEDS: pantoprazole DR 40 mg Tablet PO (10:15)
[2022-07-22] MEDS: aspirin 81 mg EC Tablet PO (10:16)
[2022-07-22] MEDS: bacitracin ointment 28 gm TOPICAL ×2 (10:16→18:37)
--- NOTE | 2022-07-22 11:10 | PC.CHAP ---
Pastoral Care Encounter/Spiritual Assessment Type of Contact [] Declined hr director visit [] Patient/Family/Request visit [] Outpatient visit [] Follow-up visit [] Physician referral [] Code/Alert [x] Routine visit [] Staff referral [] Actively dying [] Patient sleeping [] Family support [] [] Out of room [] Palliative care [] [x] Receiving care in room [] Pre-surgical visit [] Trauma [x] Long length of stay [] ICU visit [] Other: Relational/Emotional Strength [x] Patient feels connected with others/family/visitors/staff [] Distress [] Loneliness/isolation [] Abandonment Spirituality of Patient [x] Person of Malina [] Attends Church of their [place] [x] Believes in Prayer [] Reads Bible or Spiritism materials [] There are Spiritual issues to be addressed Track Dresser Interventions [x] Prayer [x] Active listening [x] Non-anxious presence [x] Spiritual/emotional support [] Crisis/trauma care [x] Spiritual counseling [] Bereavement support [] Provided bereavement packet [] Provided Bible/devotional materials [] Provided toy/stuffed animal, coloring book to patient or family member [] Provided Communion [] Anointing/[place] [] Salvation [x] Completed spiritual assessment [] Other: Impact on Illness or Injury [] Angry [] Fearful [x] Anxious [] Often cries [] Exhaustion [] Unable to work [] Unable to attend sabianism [] Unable to walk/stand [] Unable to read [] Unable to drive [] Unable to eat/drink [] Unable to sleep [] Unable to be with family [] Patient intubated [] Other: Summary + 1 senior heart family with her and well check with doctors report well be able to go home at some point Time spent with patient 10 mins
[2022-07-22] MEDS: metoprolol tartrate 25 mg Tablet 12.5 MG PO (11:26)
[2022-07-22] MEDS: acetaminophen 325 mg Tablet 650 MG PO ×2 (18:37→22:07)
[2022-07-22] MEDS: metoprolol tartrate 25 mg Tablet PO (20:07)
[2022-07-23] VITALS (7 sets, daily range): BP systolic 106–163; BP diastolic 59–78; PULSE 65–105; RESP 14–18; TEMP 36.4–36.8; O2SAT 92–100
[2022-07-23] MEDS: acetaminophen 325 mg Tablet 650 MG PO ×2 (02:54→23:11)
[2022-07-23 03:31] LABS: Basophils # 0.1 10^3/uL (0.0-0.1); Basophils % 0.4 %; Eosinophils # 0.1 10^3/uL (0.0-0.8); Eosinophils % 0.6 %; Hemoglobin 12.9 g/dL (11.5-15.3); Lymphocytes # 2.6 10^3/uL (0.8-4.8); Lymphocytes % 20.7 %; Mean Corpuscular HGB Conc 32.3 g/dL (30.0-36.0); Mean Corpuscular Hemoglobin 35.6 pg (28.0-34.0); Mean Corpuscular Volume 110.5 fl (81-99); Mean Platelet Volume 10.8 fL (7.4-10.4); Monocytes # 1.3 10^3/uL (0.2-0.9); Monocytes % 9.9 %; Neutrophils # 8.52 10^3/uL (1.8-7.7); Neutrophils % 67.7 %; Nucleated Red Blood Cells % 0 %; Platelet Count 384 10^3/cmm (130-400); Red Blood Count 3.62 10^6/uL (4.1-5.3); Red Cell Distribution Width 15.4 % (12.1-15.1); White Blood Count 12.6 10^3/uL (4.0-10.0)
[2022-07-23 04:01] LABS: Anion Gap 12.3 (5-19); Blood Urea Nitrogen 22 mg/dL (8-23); Calcium 9.6 mg/dL (8.5-10.5); Carbon Dioxide 26 mmol/L (22-29); Chloride 104 mmol/L (98-107); Creatine Phosphokinase 252 U/L (26-192); Glucose 123 mg/dL (65-115); Osmolality Calculated 291 mOsm/kg (285-295); Potassium 4.3 mmol/L (3.5-5.1); Sodium 138 mmol/L (136-145)
[2022-07-23 08:21] LABS: Troponin 5 2HR Delta 126.9 ABS# (0-10)
[2022-07-23 08:22] LABS: Troponin 5 6HR Delta 280.3 ng/L (0-12)
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
[2022-07-23] MEDS: clopidogrel 75 mg Tablet PO (08:57)
[2022-07-23] MEDS: predniSONE 5 mg Tablet PO (08:57)
[2022-07-23] MEDS: pantoprazole DR 40 mg Tablet PO (08:57)
[2022-07-23] MEDS: citalopram 20 mg Tablet 10 MG PO (08:57)
[2022-07-23] MEDS: bacitracin ointment 28 gm TOPICAL ×2 (08:58→19:21)
[2022-07-23] MEDS: enoxaparin 40 mg/0.4 mL Syringe SUBCUT (08:58)
[2022-07-23] MEDS: aspirin 81 mg EC Tablet PO (08:58)
[2022-07-23] MEDS: hydroxyurea 500 mg Capsule PO (08:59)
[2022-07-23] MEDS: metoprolol tartrate 25 mg Tablet PO ×2 (09:08→23:13)
--- NOTE | 2022-07-23 21:49 | PC.NURSE ---
Patient sleeping at this time. Daughter remains at bedside. Daughter requesting to hold medications until patient wakes. Patient has not slept for past 3 or 4 nights. Will continue to monitor
[2022-07-23] MEDS: atorvastatin 40 mg Tablet PO (23:12)
[2022-07-24] VITALS (7 sets, daily range): BP systolic 122–156; BP diastolic 65–73; PULSE 64–83; RESP 16–20; TEMP 36.5–36.9; O2SAT 92–97
[2022-07-24 04:41] LABS: Anion Gap 12.3 (5-19); Blood Urea Nitrogen 17 mg/dL (8-23); Calcium 9.6 mg/dL (8.5-10.5); Carbon Dioxide 24 mmol/L (22-29); Chloride 105 mmol/L (98-107); Glucose 125 mg/dL (65-115); Osmolality Calculated 287 mOsm/kg (285-295); Potassium 4.3 mmol/L (3.5-5.1); Sodium 137 mmol/L (136-145)
[2022-07-24 05:37] LABS: Basophils # 0.1 10^3/uL (0.0-0.1); Basophils % 0.4 %; Eosinophils # 0.1 10^3/uL (0.0-0.8); Eosinophils % 0.3 %; Hematocrit 42.4 % (37.0-47.0); Hemoglobin 13.6 g/dL (11.5-15.3); Lymphocytes # 2.2 10^3/uL (0.8-4.8); Lymphocytes % 15.4 %; Mean Corpuscular HGB Conc 32.1 g/dL (30.0-36.0); Mean Corpuscular Volume 112.2 fl (81-99); Monocytes # 1.2 10^3/uL (0.2-0.9); Monocytes % 8.3 %; Neutrophils # 10.83 10^3/uL (1.8-7.7); Neutrophils % 75.1 %; Nucleated Red Blood Cells % 0 %; Platelet Count 419 10^3/cmm (130-400); Red Blood Count 3.78 10^6/uL (4.1-5.3); Red Cell Distribution Width 15.4 % (12.1-15.1); White Blood Count 14.4 10^3/uL (4.0-10.0)
[2022-07-24] MEDS: acetaminophen 325 mg Tablet 650 MG PO ×2 (08:33→20:19)
[2022-07-24] MEDS: enoxaparin 40 mg/0.4 mL Syringe SUBCUT (08:33)
[2022-07-24] MEDS: pantoprazole DR 40 mg Tablet PO (08:34)
[2022-07-24] MEDS: citalopram 20 mg Tablet 10 MG PO (08:34)
[2022-07-24] MEDS: predniSONE 5 mg Tablet PO (08:34)
[2022-07-24] MEDS: metoprolol tartrate 25 mg Tablet PO ×2 (08:34→20:19)
[2022-07-24] MEDS: hydroxyurea 500 mg Capsule PO (08:34)
[2022-07-24] MEDS: clopidogrel 75 mg Tablet PO (08:34)
[2022-07-24] MEDS: aspirin 81 mg EC Tablet PO (08:34)
--- NOTE | 2022-07-24 09:39 | PC.SOCIAL ---
IMM update IMM updated with patient. Verbalized an understanding. Copy Pg 2 provided. Initialled, dated, timed, and placed in chart.
[2022-07-24] MEDS: bacitracin ointment 28 gm TOPICAL ×2 (09:42→20:45)
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
[2022-07-24] MEDS: atorvastatin 40 mg Tablet PO (20:19)
[2022-07-25] VITALS (8 sets, daily range): BP systolic 112–160; BP diastolic 65–74; PULSE 66–80; RESP 16–20; TEMP 36.5–36.9; O2SAT 90–97
[2022-07-25] MEDS: aspirin 81 mg EC Tablet PO (08:33)
[2022-07-25] MEDS: clopidogrel 75 mg Tablet PO (08:33)
[2022-07-25] MEDS: enoxaparin 40 mg/0.4 mL Syringe SUBCUT (08:33)
[2022-07-25] MEDS: citalopram 20 mg Tablet 10 MG PO (08:33)
[2022-07-25] MEDS: bacitracin ointment 28 gm TOPICAL ×2 (08:33→19:49)
[2022-07-25] MEDS: pantoprazole DR 40 mg Tablet PO (08:34)
[2022-07-25] MEDS: predniSONE 5 mg Tablet PO (08:34)
[2022-07-25] MEDS: metoprolol tartrate 25 mg Tablet PO ×2 (08:34→19:48)
[2022-07-25] MEDS: hydroxyurea 500 mg Capsule PO (11:24)
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
[2022-07-25] MEDS: atorvastatin 40 mg Tablet PO (19:48)
[2022-07-26] VITALS (7 sets, daily range): BP systolic 110–171; BP diastolic 61–79; PULSE 60–78; RESP 17–22; TEMP 36.3–36.7; O2SAT 93–99
[2022-07-26] MEDS: acetaminophen 325 mg Tablet 650 MG PO ×2 (03:21→21:02)
[2022-07-26 05:35] LABS: Basophils # 0.1 10^3/uL (0.0-0.1); Basophils % 0.7 %; Eosinophils # 0.1 10^3/uL (0.0-0.8); Hematocrit 46.4 % (37.0-47.0); Hemoglobin 15.5 g/dL (11.5-15.3); Lymphocytes # 2.3 10^3/uL (0.8-4.8); Lymphocytes % 17.2 %; Mean Corpuscular HGB Conc 33.4 g/dL (30.0-36.0); Mean Corpuscular Volume 107.7 fl (81-99); Mean Platelet Volume 11.4 fL (7.4-10.4); Monocytes # 1.1 10^3/uL (0.2-0.9); Monocytes % 8.2 %; Neutrophils # 9.81 10^3/uL (1.8-7.7); Neutrophils % 72.2 %; Nucleated Red Blood Cells % 0 %; Platelet Count 489 10^3/cmm (130-400); Red Blood Count 4.31 10^6/uL (4.1-5.3); Red Cell Distribution Width 15.3 % (12.1-15.1); White Blood Count 13.6 10^3/uL (4.0-10.0)
[2022-07-26 05:58] LABS: Alanine Aminotransferase 37 U/L (0-33); Albumin Level 3.9 g/dL (3.5-5.2); Alkaline Phosphatase 134 U/L (35-105); Anion Gap 13.5 (5-19); Aspartate Amino Transferase 37 U/L (0-32); Blood Urea Nitrogen 19 mg/dL (8-23); Calcium 10.3 mg/dL (8.5-10.5); Carbon Dioxide 27 mmol/L (22-29); Chloride 98 mmol/L (98-107); Glucose 119 mg/dL (65-115); Osmolality Calculated 281 mOsm/kg (285-295); Potassium 4.5 mmol/L (3.5-5.1); Sodium 134 mmol/L (136-145); Total Bilirubin 0.7 mg/dL (0.15-1.2); Total Protein 7.9 g/dL (6.6-8.7)
[2022-07-26] MEDS: metoprolol tartrate 25 mg Tablet PO ×2 (10:14→20:14)
[2022-07-26] MEDS: citalopram 20 mg Tablet 10 MG PO (10:14)
[2022-07-26] MEDS: hydroxyurea 500 mg Capsule PO (10:15)
[2022-07-26] MEDS: pantoprazole DR 40 mg Tablet PO (10:15)
[2022-07-26] MEDS: aspirin 81 mg EC Tablet PO (10:16)
[2022-07-26] MEDS: enoxaparin 40 mg/0.4 mL Syringe SUBCUT (10:16)
[2022-07-26] MEDS: predniSONE 5 mg Tablet PO (10:16)
[2022-07-26] MEDS: clopidogrel 75 mg Tablet PO (10:16)
[2022-07-26] MEDS: bacitracin ointment 28 gm TOPICAL ×2 (10:20→20:14)
[2022-07-26 11:27] LABS: SARS Covid-2 Antigen negative (Negative)
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
[2022-07-27] VITALS (7 sets, daily range): BP systolic 100–169; BP diastolic 51–74; PULSE 68–79; RESP 17–24; TEMP 36.3–36.9; O2SAT 92–98
[2022-07-27 04:55] LABS: Basophils # 0.1 10^3/uL (0.0-0.1); Basophils % 0.5 %; Eosinophils # 0.1 10^3/uL (0.0-0.8); Eosinophils % 0.9 %; Hemoglobin 14.2 g/dL (11.5-15.3); Lymphocytes # 2.7 10^3/uL (0.8-4.8); Mean Corpuscular Volume 109.1 fl (81-99); Monocytes # 1.1 10^3/uL (0.2-0.9); Monocytes % 8.2 %; Neutrophils # 9.41 10^3/uL (1.8-7.7); Neutrophils % 69.8 %; Nucleated Red Blood Cells % 0 %; Platelet Count 472 10^3/cmm (130-400); Red Blood Count 3.94 10^6/uL (4.1-5.3); Red Cell Distribution Width 15.1 % (12.1-15.1); White Blood Count 13.5 10^3/uL (4.0-10.0)
[2022-07-27 05:12] LABS: Alanine Aminotransferase 34 U/L (0-33); Albumin Level 3.8 g/dL (3.5-5.2); Alkaline Phosphatase 113 U/L (35-105); Anion Gap 15.5 (5-19); Aspartate Amino Transferase 31 U/L (0-32); Blood Urea Nitrogen 24 mg/dL (8-23); Calcium 10.2 mg/dL (8.5-10.5); Carbon Dioxide 24 mmol/L (22-29); Chloride 99 mmol/L (98-107); Globulin 3.5 g/dL (1.3-4.6); Glucose 105 mg/dL (65-115); Osmolality Calculated 282 mOsm/kg (285-295); Potassium 4.5 mmol/L (3.5-5.1); Sodium 134 mmol/L (136-145); Total Bilirubin 0.5 mg/dL (0.15-1.2); Total Protein 7.3 g/dL (6.6-8.7)
[2022-07-27] MEDS: predniSONE 5 mg Tablet PO (08:57)
[2022-07-27] MEDS: pantoprazole DR 40 mg Tablet PO (08:57)
[2022-07-27] MEDS: clopidogrel 75 mg Tablet PO (08:57)
[2022-07-27] MEDS: enoxaparin 40 mg/0.4 mL Syringe SUBCUT (08:57)
[2022-07-27] MEDS: aspirin 81 mg EC Tablet PO (08:57)
[2022-07-27] MEDS: citalopram 20 mg Tablet 10 MG PO (08:57)
[2022-07-27] MEDS: bacitracin ointment 28 gm TOPICAL ×2 (09:01→21:14)
[2022-07-27] MEDS: metoprolol tartrate 25 mg Tablet PO ×2 (09:02→20:42)
[2022-07-27] MEDS: hydroxyurea 500 mg Capsule PO (09:02)
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
--- NOTE | 2022-07-27 15:15 | PC.NURSE ---
Please walk patient with gait belt and walker if she gets antsy or wanting to just go. She will walk around the square with you and lay down for a while. If you put the T.V. in front of her when she is laying down she will watch it.. It might also help to gait belt and walker her to the bathroom when she needs to go..
[2022-07-27] MEDS: acetaminophen 325 mg Tablet 650 MG PO (20:42)
[2022-07-27] MEDS: atorvastatin 40 mg Tablet PO (20:44)
[2022-07-28 04:00] VITALS: BP 109/61; PULSE 66; RESP 24; TEMP 37.1; O2SAT 94
[2022-07-28 06:41] LABS: Basophils # 0.1 10^3/uL (0.0-0.1); Basophils % 0.6 %; Eosinophils # 0.1 10^3/uL (0.0-0.8); Eosinophils % 0.6 %; Hematocrit 42.2 % (37.0-47.0); Hemoglobin 13.7 g/dL (11.5-15.3); Lymphocytes # 2.2 10^3/uL (0.8-4.8); Lymphocytes % 17.8 %; Mean Corpuscular HGB Conc 32.5 g/dL (30.0-36.0); Mean Corpuscular Hemoglobin 36.3 pg (28.0-34.0); Mean Corpuscular Volume 111.9 fl (81-99); Mean Platelet Volume 11.1 fL (7.4-10.4); Monocytes % 8.2 %; Neutrophils # 9.04 10^3/uL (1.8-7.7); Neutrophils % 72.2 %; Nucleated Red Blood Cells % 0 %; Platelet Count 445 10^3/cmm (130-400); Red Blood Count 3.77 10^6/uL (4.1-5.3); Red Cell Distribution Width 15.4 % (12.1-15.1); White Blood Count 12.5 10^3/uL (4.0-10.0)
[2022-07-28 06:55] LABS: Alanine Aminotransferase 27 U/L (0-33); Albumin Level 3.5 g/dL (3.5-5.2); Alkaline Phosphatase 104 U/L (35-105); Anion Gap 15.1 (5-19); Aspartate Amino Transferase 24 U/L (0-32); Blood Urea Nitrogen 24 mg/dL (8-23); Calcium 9.8 mg/dL (8.5-10.5); Carbon Dioxide 22 mmol/L (22-29); Chloride 102 mmol/L (98-107); Globulin 3.2 g/dL (1.3-4.6); Glucose 101 mg/dL (65-115); Osmolality Calculated 284 mOsm/kg (285-295); Potassium 4.1 mmol/L (3.5-5.1); Sodium 135 mmol/L (136-145); Total Bilirubin 0.5 mg/dL (0.15-1.2); Total Protein 6.7 g/dL (6.6-8.7)
[2022-07-28 08:00] VITALS: BP 168/76; PULSE 83; RESP 17; TEMP 36.6; O2SAT 98
[2022-07-28] MEDS: pantoprazole DR 40 mg Tablet PO (10:01)
[2022-07-28] MEDS: metoprolol tartrate 25 mg Tablet PO (10:01)
[2022-07-28] MEDS: citalopram 20 mg Tablet 10 MG PO (10:01)
[2022-07-28] MEDS: clopidogrel 75 mg Tablet PO (10:01)
[2022-07-28] MEDS: enoxaparin 40 mg/0.4 mL Syringe SUBCUT (10:02)
[2022-07-28] MEDS: aspirin 81 mg EC Tablet PO (10:02)
[2022-07-28] MEDS: predniSONE 5 mg Tablet PO (10:03)
[2022-07-28] MEDS: hydroxyurea 500 mg Capsule PO (10:05)
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
[2022-07-28 11:53] LABS: SARS Covid-2 Antigen negative (Negative)
[2022-07-28 12:00] VITALS: BP 132/66; PULSE 71; RESP 17; O2SAT 96
[2022-07-28 14:12] VITALS: BP 132/66; PULSE 71; RESP 17; O2SAT 96
--- NOTE | 2022-07-28 14:13 | PC.NURSE ---
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 Discharge instructions reviewed with patient and/or high school admissions representative. Mobile pharmacy medications and/or prescriptions provided. Belongings/home medications returned.
== END 2022-07-28 14:13 | disposition skilled nursing facility (03) | DRG 281 ==
LOC: ER 11:58 → MEDSURG 22:58
PROVIDERS: Student in an Organized Health Care Education/Training Program; Admitting Provider Internal Medicine; Emergency Provider Emergency Medicine; PCP Family Medicine; Visit Provider Internal Medicine
DX: I21.4 Non-ST elevation (NSTEMI) myocardial infarction (principal); I47.20 Ventricular tachycardia, unspecified; I69.951 Hemiplegia and hemiparesis following unspecified cerebrovascular disease affecting right dominant side; M62.82 Rhabdomyolysis; I48.91 Unspecified atrial fibrillation; W19.XXXA Unspecified fall, initial encounter; F03.90 Unspecified dementia, unspecified severity, without behavioral disturbance, psychotic disturbance, mood disturbance, and anxiety; F32.A Depression, unspecified; K21.9 Gastro-esophageal reflux disease without esophagitis; E78.5 Hyperlipidemia, unspecified; D75.1 Secondary polycythemia; E86.0 Dehydration; T24.212A Burn of second degree of left thigh, initial encounter; T22.222A Burn of second degree of left elbow, initial encounter; X19.XXXA Contact with other heat and hot substances, initial encounter; R73.9 Hyperglycemia, unspecified; Z66 Do not resuscitate; Z79.899 Other long term (current) drug therapy; Z79.82 Long term (current) use of aspirin; S92.515A Nondisplaced fracture of proximal phalanx of left lesser toe(s), initial encounter for closed fracture
CPT/HCPCS: 36415; 51702; 70450; 71045; 73620; 80048; 80053; 81001; 82550; 82607; 82746; 83036; 83735; 84443; 84484; 85025; 85651; 87040; 87205; 87426; 87635; 90471; 90714; 93005; 93306; 94760; 96372; 96374; 97116; 97161; 97167; 97530; 97535; 99285; A6446; J1650; J3490; J7030; J7512; J8999; L3260

== ENCOUNTER → 2022-08-03 13:52 | Outpatient (BNVA) | payer MEDICARE, BC, SELFPAY | PROVIDERS: PCP Family Medicine; Visit Provider Nurse Practitioner Family | DX: I48.91 Unspecified atrial fibrillation (principal) | CPT/HCPCS: 99213 ==

== ENCOUNTER → 2022-08-04 14:28 | Outpatient (BNVA) | payer OTHER, MEDICARE, BC, SELFPAY | PROVIDERS: PCP Family Medicine; Visit Provider Podiatrist Foot & Ankle Surgery | DX: S92.912A Unspecified fracture of left toe(s), initial encounter for closed fracture (principal); W22.09XA Striking against other stationary object, initial encounter; R60.0 Localized edema; M20.41 Other hammer toe(s) (acquired), right foot; M20.42 Other hammer toe(s) (acquired), left foot | CPT/HCPCS: 73630; 99203 ==

== ENCOUNTER → 2022-08-19 10:06 | Outpatient (BNVA) | payer OTHER, MEDICARE, BC, SELFPAY | PROVIDERS: PCP Family Medicine; Referring Provider Family Medicine; Visit Provider Nurse Practitioner Family | DX: S62.102A Fracture of unspecified carpal bone, left wrist, initial encounter for closed fracture (principal); W19.XXXA Unspecified fall, initial encounter | CPT/HCPCS: 73110; 99214 ==

== ENCOUNTER 2022-08-19 11:16 | Outpatient (CLI) | payer OTHER, BC, SELFPAY | END 2022-08-19 11:17 | disposition home or self-care (01) | LOC: SPT 11:16 | PROVIDERS: PCP Family Medicine; Visit Provider Nurse Practitioner Family | DX: Z46.89 Encounter for fitting and adjustment of other specified devices (principal); S52.592D Other fractures of lower end of left radius, subsequent encounter for closed fracture with routine healing; X58.XXXD Exposure to other specified factors, subsequent encounter | CPT/HCPCS: 97760; L3982 ==

== ENCOUNTER 2022-09-02 19:03 | Emergency (ER) | payer MEDICARE, BC, SELFPAY ==
[2022-09-02 19:49] VITALS: BP 105/57; PULSE 67; RESP 18; TEMP 36.6; O2SAT 96; BMI 20.5
--- NOTE | 2022-09-02 21:51 | ED_ITS ---
HPI - Female Genitourinary General: Chief complaint: Urogenital-Female Stated complaint: back pain Time Seen by Provider: 09/02/22 21:51 Limitations: altered mental status History of Present Illness: Ms. Tran is an 86-year-old lady with significant past medical history of cognitive impairment, recent falls presenting to the emergency department due to back pain. Pain seemed to start after few falls however seemed more significant today. She has had difficulty ambulating and pain with ambulation. She seems to have decreased urine output as well. His tory somewhat limited by patient's mental state. No other specific changes in health, exacerbating, or alleviating factors identified. Review of Systems General: Reports: ROS unobtainable due to mental status PFSH ED PFSH: Medical History Cognitive impairment 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 Degenerative joint disease Depression GERD (gastroesophageal reflux disease) Hyperlipidemia Polycythemia Surgical History History of cataract surgery History of hysterectomy Family History Other CAD (coronary artery disease) Cancer Social History Smoking and tobacco status: never smoked Alcohol intake: never Physical Exam Const: COMMON NORMALS: alert GENERAL APPEARANCE: cooperative and well developed HENMT: COMMON NORMALS: normocephalic and atraumatic HEAD & SCALP: normocephalic and atraumatic Eye: COMMON NORMALS: conjunctivae normal CONJUNCTIVA: Yes conjunctivae normal SCLERA: sclerae normal Neck/C-Spine: COMMON NORMALS: supple GENERAL: Yes trachea midline Resp: COMMON NORMALS: clear to auscultation bilaterally EFFORT & INSPECTION: Yes able to speak in complete sentences AUSCULTATION: clear to auscultation bilaterally Cardio: COMMON NORMALS: regular rate and regular rhythm RATE: regular rate RHYTHM: regular rhythm GI: COMMON NORMALS: Soft to palpation PALPATION: Yes Soft to palpation, Yes Tenderness to palpation present (GI), No Guarding due to palpation present (GI) and No Rigid due to palpation Extremity: GENERAL: Yes normal exam except as noted and No edema Neuro: COMMON NORMALS: moves all extremities SENSORIUM/ORIENTATION: Yes alert and Yes Orientation impaired Course 2 Vital Signs: Vital signs: Vital Signs Temperature 97.9 F 09/02/22 19:49 Pulse Rate 100 09/03/22 00:30 Respiratory Rate 18 09/03/22 00:30 Blood Pressure 107/84 09/03/22 00:30 Pulse Oximetry 97 09/03/22 00:30 Oxygen Delivery Me thod 09/02/22 22:25 MDM - Female Medical Decision Making 86-year-old lady presenting with daughter for back pain and change in baseline f unction. Limited history provided by patient with underlying dementia. Labs with no leukocytosis, normal hemoglobin. Metabolic panel without significant derangement to explain symptoms. Nitrite positive UTI. CT imaging with T12 and L1 superior endplate fractures of indeterminate age. No other acute findings. Incidental findings discussed. Patient improved with fluids and analgesia. Antibiotics administered. Most likely cause of patient's symptoms is UTI. The results of ED evaluation were discussed with the patient including prescriptions and/or symptomatic cares (if applicable) including appropriate and responsible use, followup plan, and return precautions. The patient verbalized understanding and felt safe for discharge. Medical Records I reviewed the patient's medical records. Lab Data I reviewed the patient's lab results. 09/02/22 22:27 09/02/22 22:27 Radiology Impressions Abdomen/Pelvis CT 09/02/22 22:36 IMPRESSION: 1. No acute intra-abdominal findings. 2. T12 and L1 superior endplate compression fractures of indeterminate chronicity. 3. Incidental findings above. Laboratory Results WBC 8.9 10^3/uL (4.0-10.0) 09/02/22 22: RBC 3.85 10^6/uL (4.1-5.3) L 09/02/22 22: Hgb 13.6 g/dL (11.5-15.3) 09/02/22 22: Hct 41.4 % (37.0-47.0) 09/02/22: MCV 107.5 fl (81-99) H 09/02/22 22:27 MCH 35.3 pg (28.0-34.0) H 09/02/22: MCHC 32.9 g/dL (30.0-36.0) 09/02/22: RDW 14.6 % (12.1-15.1) 09/02/22: Plt Count 495 10^3/cmm (130-400) H 09/02/22: MPV 10.4 fL (7.4-10.4) 09/02/22: Neut % (Auto) 69.0 % 09/02/22: Lymph % (Auto) 21.2 % 09/02/22: [place] % (Auto) 7.6 % 09/02/22: Eos % (Auto) 1.3 % 09/02/22: Baso % (Auto) 0.7 % 09/02/22 Neut # (Auto) 6.13 10^3/uL (1.8-7.7) 09/02/22: Lymph # (Auto) 1.9 10^3/uL (0.8-4.8) 09/02/22: [place] # (Auto) 0.7 10^3/uL (0.2-0.9) 09/02/22: Eos # (Auto) 0.1 10^3/uL (0.0-0.8) 09/02/22: Baso # (Auto) 0.1 10^3/uL (0.0-0.1) 09/02/22: Nucleated RBC % (auto) 0 % 09/02/22: Nucleated RBCs # 0.0 /100WBC 09/02/22: Sodium 136 mmol/L (136-145) 09/02/22: Potassium 4.1 mmol/L (3.5-5.1) 09/02/22: Chloride 101 mmol/L (98-107) 09/02/22: Carbon Dioxide 25 mmol/L (22-29) 09/02/22: Anion Gap 14.1 (5-19) 09/02/22 22: BUN 26 mg/dL (8-23) H 09/02/22: Creatinine 0.9 mg/dL (0.5-0.9) 09/02/22: GFR Calculation Not Reportable 09/02/22: Glucose 116 mg/dL (65-115) H 09/02/22 22:27 Calculated Osmolality 288 mOsm/kg (285-295) 09/02/22 22:27 Calcium 10.4 mg/dL (8.5-10.5) 09/02/22 22:27 Total Bilirubin 0.6 mg/dL (0.15-1.2) 09/02/22 22:27 AST 27 U/L (0-32) 09/02/22 22:27 ALT 17 U/L (0-33) 09/02/22 22:27 Alkaline Phosphatase 175 U/L (35-105) H 09/02/22 22:27 Total Protein 7.3 g/dL (6.6-8.7) 09/02/22 22: Albumin 3.5 g/dL (3.5-5.2) 09/02/22 22: Globulin 3.8 g/dL (1.3-4.6) 09/02/22 22:27 Urine Color Yellow (Yellow) 09/02/22 22:12 Urine Appearance Sl hazy (CLEAR) A 09/02/22 22:12 Urine pH 5 (5-7) 09/02/22 22:12 Ur Specific [place] 1.025 (1.005-1.030) 09/02/22 22:12 Urine Protein Neg (Negative) 09/02/22 22:12 Urine Glucose (UA) Norm (Normal) 09/02/22 22:12 Urine Ketones Negative (Negative) 09/02/22 22:12 Urine Blood Neg (Negative) 09/02/22 22:12 Urine Nitrate Positive (Negative) H 09/02/22 22:12 Urine Bilirubin Neg (Negative) 09/02/22 22:12 Urine Urobilinogen Norm mg/dL (Negative) 09/02/22 22:12 Ur Leukocyte Esterase Negative (Negative) 09/02/22 22:12 Urine RBC None /hpf (0-2) 09/02/22 22:12 Urine WBC 10-15 /hpf (0-5) H 09/02/22 22:12 Ur Squamous Epith Cells 0-4 /hpf (0-5) H 09/02/22 22:12 Amorphous Sediment Not Reportable 09/02/22 22:12 Urine Bacteria 4+ /hpf (NONE) H 09/02/22 22:12 Discharge Plan Discharge Patient Disposition: Home Clinical Impression: Falls frequently, Back pain, Acute UTI Condition: Stable Prescriptions: New cefpodoxime 200 mg tablet 200 mg PO BID Qty: 20 0RF Rx Instructions: must administer with a meal/food No Action citalopram [Celexa] 10 mg tablet 10 mg PO DAILY aspirin [Rashad Low Dose Aspirin] 81 mg tablet,delayed release (DR/EC) 81 mg PO DAILY (DME) cock up splint See Rx Instructions .Route .MEDSUPPLY Qty: 1 0RF Rx Instructions: As directed Probiotic 3 billion cell capsule 3,000 mmu cells PO DAILY Rx Instructions: administer with a meal bisacodyl 10 mg suppository 10 mg ND DAILY PRN magnesium hydroxide [Davison Milk of Magnesia] 400 mg/5 mL suspension 5 ml PO DAILY PRN lorazepam [Ativan] 0.5 mg tablet 0.5 mg PO DAILY PRN hydrocodone-acetaminophen 5-325 mg tablet 1 tab PO BID PRN (DME) FAST FORM COCK UP SPLINT See Rx Instructions .Route .MEDSUPPLY Qty: 1 0RF Rx Instructions: As directed hydroxyurea 500 mg capsule 500 mg PO DAILY Qty: 90 3RF atorvastatin 40 mg Tablet 40 mg PO BEDTIME Qty: 90 0RF prednisone 5 mg Tablet 5 mg PO DAILY Qty: 6 0RF clopidogrel 75 mg Tablet 75 mg PO DAILY Qty: 90 0RF pantoprazole 40 mg Tablet,Delayed Release (Dr/Ec) 40 mg PO DAILY Qty: 42 0RF metoprolol tartrate 25 mg Tablet 25 mg PO BID@0900,2100 Qty: 180 0RF Discharge Orders: Discharge ED (Routine); Ordered 09/02/22 Ordered By: Salomon Holt Referrals: Don Haile MD [Primary Care Provider] - Discharge Diet: Usual diet Discharge Activity: Increase activity as tolerated Patient Instructions: Dehydration (ED), Back Pain (ED), Urinary Tract Infection in Older Adults (ED), Pain Management Activity Restrictions/Additional Instructions: Thank you for visiting the emergency department. You were seen and evaluated for abdominal and back pain. The exact cause of your symptoms is unclear however does not appear to need hospital management at this time. You are found to have a urinary tract infection which will be treated with antibiotics. CT did demonstrate T12 and L1 superior endplate compression fractures of indeterminate age. Please follow-up with your primary care provider. You may use [id number] medications such as acetaminophen and ibuprofen for pain (as long as you have not been told to avoid these in the past by another physician) however please do not exceed the daily recommended dosage as listed on the packaging and please keep in mind that many namebrand medications contain the same active ingredients. Return to the emergency department for uncontrolled symptoms or anything else that you are concerned about a feel needs emergency department evaluation. Coding Level of Care Code ED Site Monitor for González Augustin
[2022-09-02 22:25] VITALS: BP 144/123; PULSE 68; RESP 16; O2SAT 97
[2022-09-02] MEDS: sodium chloride 0.9% 500 ML 999 ML IV (22:33)
[2022-09-02 22:36] LABS: Basophils # 0.1 10^3/uL (0.0-0.1); Basophils % 0.7 %; Eosinophils # 0.1 10^3/uL (0.0-0.8); Eosinophils % 1.3 %; Hematocrit 41.4 % (37.0-47.0); Hemoglobin 13.6 g/dL (11.5-15.3); Lymphocytes # 1.9 10^3/uL (0.8-4.8); Lymphocytes % 21.2 %; Mean Corpuscular HGB Conc 32.9 g/dL (30.0-36.0); Mean Corpuscular Hemoglobin 35.3 pg (28.0-34.0); Mean Corpuscular Volume 107.5 fl (81-99); Mean Platelet Volume 10.4 fL (7.4-10.4); Monocytes # 0.7 10^3/uL (0.2-0.9); Monocytes % 7.6 %; Neutrophils # 6.13 10^3/uL (1.8-7.7); Nucleated Red Blood Cells % 0 %; Platelet Count 495 10^3/cmm (130-400); Red Blood Count 3.85 10^6/uL (4.1-5.3); Red Cell Distribution Width 14.6 % (12.1-15.1); White Blood Count 8.9 10^3/uL (4.0-10.0)
--- NOTE | 2022-09-02 22:36 | CTR_ITS ---
PROCEDURE INFORMATION: Exam: CT Abdomen And Pelvis Without Contrast Exam date and time: 09/02/2022 11:09 PM Age: 86 years old Clinical indication: Prior surgery; Surgery type: Hysterectomy; Patient HX: Patient C/O low back pain. Family states patient recently discharged from long-term and was on antibiotics for UTI. ; Additional info: Back and pelvic pain TECHNIQUE: Imaging protocol: Computed tomography of the abdomen and pelvis without contrast. Radiation optimization: All CT scans at this facility use at least one of these dose optimization techniques: automated exposure control; mA and/or kV adjustment per patient size (includes targeted exams where dose is matched to clinical indication); or iterative reconstruction. COMPARISON: CR XR chest 1V portable [id number] 07/21/2022 10:06 AM RADIATION DOSE METRICS: Total DLP (mGy-cm): 523.73 FINDINGS: Lungs: There is subsegmental atelectasis in the lung bases. Liver: The liver is normal. Gallbladder and bile ducts: The gallbladder is decompressed, preventing meaningful evaluation of wall thickness. There is no intrahepatic or extrahepatic bile duct dilation. The gallbladder is absent. Pancreas: The pancreas is unremarkable. Spleen: The spleen is unremarkable. Adrenal glands: The adrenal glands are unremarkable. Kidneys and ureters: The kidneys are unremarkable. No hydronephrosis or stones. No ureteral dilation. Stomach and bowel: The stomach is decompressed, preventing meaningful evaluation of wall thickness. The small bowel is nondilated. There is moderate sigmoid colonic diverticulosis without evidence of diverticulitis. Appendix: The appendix is normal. Intraperitoneal space: There is no free air or significant intraperitoneal free fluid. Vasculature: There is moderate aortic atherosclerotic disease. Lymph nodes: There is no lymphadenopathy in the retroperitoneum, mesentery, pelvis or inguinal regions. Urinary bladder: The urinary bladder is unremarkable. Reproductive: The uterus is absent. There is no adnexal mass or large cyst. Bones/joints: There is mild degenerative disease in the lower lumbar spine. Mild L1 superior endplate compression fracture. Mild T12 superior endplate compression fracture. The pelvis and hips are unremarkable. Soft tissues: The abdominal wall is intact. CT/CT abdomen pelvis wo con [id number] IMPRESSION: 1. No acute intra-abdominal findings. 2. T12 and L1 superior endplate compression fractures of indeterminate chronicity. 3. Incidental findings above.
[2022-09-02 22:50] LABS: Alanine Aminotransferase 17 U/L (0-33); Albumin Level 3.5 g/dL (3.5-5.2); Alkaline Phosphatase 175 U/L (35-105); Anion Gap 14.1 (5-19); Aspartate Amino Transferase 27 U/L (0-32); Blood Urea Nitrogen 26 mg/dL (8-23); Calcium 10.4 mg/dL (8.5-10.5); Carbon Dioxide 25 mmol/L (22-29); Chloride 101 mmol/L (98-107); Globulin 3.8 g/dL (1.3-4.6); Glucose 116 mg/dL (65-115); Osmolality Calculated 288 mOsm/kg (285-295); Potassium 4.1 mmol/L (3.5-5.1); Sodium 136 mmol/L (136-145); Total Bilirubin 0.6 mg/dL (0.15-1.2); Total Protein 7.3 g/dL (6.6-8.7)
[2022-09-02] MEDS: ketorolac 30 mg/mL INJ 15 MG IVP (23:39)
[2022-09-02] MEDS: acetaminophen 325 mg Tablet 650 MG PO (23:40)
[2022-09-02 23:43] LABS: Add Urine Microscopic? YES; Bilirubin Urine Neg (Negative); Blood Urine Neg (Negative); Glucose Urine UA Norm (Normal); Ketones Urine Negative (Negative); Leukocyte Esterase Urine Negative (Negative); Nitrate Urine Positive (Negative); Protein Urine Neg (Negative); Specific Gravity, Urine 1.025 (1.005-1.030); Urine Appearance SL Hazy (CLEAR); Urine Color Yellow (Yellow); Urobilinogen Urine Norm (Negative); pH Urine 5 (5-7)
[2022-09-02 23:44] LABS: Add Urine Culture? Yes; Bacteria Urine 4+ /hpf; Squamous Epithelial Cell Urine 0-4 /hpf (0-5)
[2022-09-02] MEDS: cefTRIAXone 1,000 MG in sodium chloride 0.9% (plus) 50 ML 100 MG IV (23:59)
[2022-09-03 00:30] VITALS: BP 107/84; PULSE 100; RESP 18; O2SAT 97
== END 2022-09-03 00:30 | disposition home or self-care (01) ==
PROVIDERS: Emergency Provider Emergency Medicine; PCP Family Medicine
DX: M54.9 Dorsalgia, unspecified (principal); N39.0 Urinary tract infection, site not specified; R29.6 Repeated falls
CPT/HCPCS: 74176; 80053; 81001; 85025; 87077; 87086; 87186; 96365; 96375; 99285; J0696; J1885; J7040

== ENCOUNTER 2022-09-16 16:04 | Outpatient (CLI) | payer MEDICARE, BC, SELFPAY ==
[2022-09-16 17:21] LABS: 25 Hydroxy Vitamin D 22 ng/mL (30-100); Alanine Aminotransferase 18 U/L (0-33); Albumin Level 3.4 g/dL (3.5-5.2); Alkaline Phosphatase 141 U/L (35-105); Anion Gap 14.6 (5-19); Aspartate Amino Transferase 32 U/L (0-32); Blood Urea Nitrogen 26 mg/dL (8-23); Calcium 9.7 mg/dL (8.5-10.5); Carbon Dioxide 19 mmol/L (22-29); Chloride 109 mmol/L (98-107); Globulin 3.3 g/dL (1.3-4.6); Glucose 101 mg/dL (65-115); Osmolality Calculated 293 mOsm/kg (285-295); Potassium 3.6 mmol/L (3.5-5.1); Sodium 139 mmol/L (136-145); Thyroid Stimulating Hormone 1.77 uIU/mL (0.27-4.20); Total Bilirubin 0.3 mg/dL (0.15-1.2); Total Protein 6.7 g/dL (6.6-8.7)
[2022-09-16 17:30] LABS: Basophils % 0.3 %; Eosinophils # 0.1 10^3/uL (0.0-0.8); Eosinophils % 1.3 %; Hematocrit 38.2 % (37.0-47.0); Hemoglobin 12.6 g/dL (11.5-15.3); Lymphocytes # 1.6 10^3/uL (0.8-4.8); Lymphocytes % 25.8 %; Mean Corpuscular Hemoglobin 35.6 pg (28.0-34.0); Mean Corpuscular Volume 107.9 fl (81-99); Mean Platelet Volume 10.8 fL (7.4-10.4); Monocytes # 0.8 10^3/uL (0.2-0.9); Monocytes % 13.9 %; Neutrophils # 3.52 10^3/uL (1.8-7.7); Neutrophils % 58.4 %; Nucleated Red Blood Cells % 0 %; Platelet Count 449 10^3/cmm (130-400); Red Blood Count 3.54 10^6/uL (4.1-5.3); Red Cell Distribution Width 15.2 % (12.1-15.1)
== END 2022-09-16 16:05 | disposition home or self-care (01) ==
PROVIDERS: PCP Family Medicine; Visit Provider Family Medicine
DX: E11.9 Type 2 diabetes mellitus without complications (principal); E55.9 Vitamin D deficiency, unspecified; I10 Essential (primary) hypertension; R19.5 Other fecal abnormalities
CPT/HCPCS: 80053; 82306; 84443; 85025; 87493

== ENCOUNTER 2022-09-17 09:09 | Oncology outpatient (recurring) (ONCR) | payer MEDICARE, BC, SELFPAY ==
[2022-09-17 10:06] LABS: Lactate Dehydrogenase 285 U/L (135-214)
== END 2022-10-16 23:59 | disposition home or self-care (01) ==
LOC: ONCMED 09:09
PROVIDERS: PCP Family Medicine; Visit Provider Internal Medicine Medical Oncology
DX: D45 Polycythemia vera (principal); F03.90 Unspecified dementia, unspecified severity, without behavioral disturbance, psychotic disturbance, mood disturbance, and anxiety; I25.2 Old myocardial infarction; I48.0 Paroxysmal atrial fibrillation; Z79.82 Long term (current) use of aspirin; Z79.01 Long term (current) use of anticoagulants; Z79.899 Other long term (current) drug therapy; Z86.73 Personal history of transient ischemic attack (TIA), and cerebral infarction without residual deficits
CPT/HCPCS: 83615; 99214

== ENCOUNTER 2022-11-09 22:03 | Inpatient (IN) | payer MEDICARE, BC, SELFPAY ==
[2022-11-09] VITALS (9 sets, daily range): BP systolic 131–159; BP diastolic 56–79; PULSE 70–85; RESP 15–19; TEMP 36.5; O2SAT 92–97; BMI 23.8
--- NOTE | 2022-11-09 22:07 | XRR_ITS ---
PROCEDURE INFORMATION: Exam: XR Chest Exam date and time: 11/09/2022 10:29 PM Age: 86 years old Clinical indication: Other: Stroke like symptoms; Additional info: Cp TECHNIQUE: Imaging protocol: Radiologic exam of the chest. Views: 1 view. COMPARISON: CR XR chest 1V portable [id number] 07/21/2022 10:06 AM FINDINGS: Tubes, catheters and devices: Monitor leads project over the chest. Lungs: Low lung volumes with mild left basilar atelectasis versus pneumonia. Pleural spaces: No significant costophrenic angle blunting. No pneumothorax. Heart/Mediastinum: Heart size within normal limits given the portable AP technique. Vasculature: Atherosclerotic tortuosity of the thoracic aorta. Bones/joints: Bony demineralization, degenerative bony changes and old right clavicle fracture. Old right rib fractures. XR/XR chest 1V portable [id number] IMPRESSION: Low lung volumes with mild left basilar atelectasis versus pneumonia.
--- NOTE | 2022-11-09 22:07 | ECG_ITS ---
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 Measurements Intervals [place] Rate: 86 P: 64 NC: 151 QRS: 70 QRSD: 90 T: 14 QT: 343 QTc: 412 Interpretive Statements SINUS RHYTHM ST DEVIATION AND MODERATE T-WAVE ABNORMALITY, CONSIDER LATERAL ISCHEMIA [-0.1+ mV T-WAVE IN I/aVL/V5/V6] Compared to ECG 07/21/2022 12:59:02 T-wave abnormality now present Possible ischemia now present Electronically Signed On 11-10-2022 9:26:47 [employer] OPERATOR by Pj Lovett M.D. [id number]
--- NOTE | 2022-11-09 22:08 | CTR_ITS ---
PROCEDURE INFORMATION: Exam: CT Head Without Contrast Exam date and time: 11/09/2022 10:07 PM Age: 86 years old Clinical indication: Stroke-like symptoms; Speech disturbance; Lt upper extremity and lt lower extremity weakness; Additional info: Slurred speech with left sided weakness. History of CVA and dementia. TECHNIQUE: Imaging protocol: Computed tomography of the head without contrast. Radiation optimization: All CT scans at this facility use at least one of these dose optimization techniques: automated exposure control; mA and/or kV adjustment per patient size (includes targeted exams where dose is matched to clinical indication); or iterative reconstruction. Other protocol: This patient has received 2 known CTs and 0 known cardiac nuclear medicine studies in the 12 months prior to the current study. Other technique: STROKE PROTOCOL was implemented. COMPARISON: CT head wo con* [id number] 07/21/2022 10:36 AM RADIATION DOSE METRICS: Total DLP (mGy-cm): 885.88 FINDINGS: Brain: Prominence of the sulci consistent with diffuse atrophy. No mass effect or midline shift. Periventricular and subcortical white matter low-attenuation consistent with chronic small vessel ischemic changes. Bilateral basal ganglia and right haile radiata small remote lacunar infarcts. No evidence of acute intracranial hemorrhage. Cerebral ventricles: Ventricular prominence proportional to sulci. No hydrocephalus. Paranasal sinuses: No significant or acute abnormality. No air-fluid levels. Mastoid air cells: No acute abnormality. No significant mastoid effusion. Bones/joints: No acute osseous abnormality. No acute fracture. Soft tissues: No significant soft tissue abnormalities. CT/CT head wo con* [id number] IMPRESSION: Diffuse atrophy and chronic/remote ischemic changes without evidence of superimposed acute infarct, hemorrhage or mass-effect at this time. ASSESSMENT: ASPECTS (Reena Stroke Program Early CT Score) is 10.
--- NOTE | 2022-11-09 22:10 | CTR_ITS ---
PROCEDURE INFORMATION: Exam: CTA Head With Contrast, Arteriography Exam date and time: 11/09/2022 10:20 PM Age: 86 years old Clinical indication: Condition or disease; Other: Slurring of speech, HX of prior CVA; Speech disturbance; Slurred speech TECHNIQUE: Imaging protocol: Computed tomographic angiography of the head with contrast. Exam focused on the arteries. 3D rendering (Not supervised by radiologist): MIP and/or 3D reconstructed images were created by the technologist. Radiation optimization: All CT scans at this facility use at least one of these dose optimization techniques: automated exposure control; mA and/or kV adjustment per patient size (includes targeted exams where dose is matched to clinical indication); or iterative reconstruction. Contrast material: OMNIPAQUE 350; Contrast volume: 95 ml; Contrast route: INTRAVENOUS (IV); Other protocol: This patient has received 3 known CTs and 0 known cardiac nuclear medicine studies in the 12 months prior to the current study. COMPARISON: CT head wo con* [id number] 11/09/2022 10:07 PM RADIATION DOSE METRICS: Total DLP (mGy-cm): 324.47 FINDINGS: ANTERIOR CIRCULATION: Right internal carotid artery: Distal right ICA cavernous segment arterial wall calcification. No occlusion or significant/high-grade stenosis. No aneurysm. Right middle cerebral artery: No occlusion or significant stenosis. No aneurysm. Right anterior cerebral artery: No occlusion or significant stenosis. No aneurysm. Left internal carotid artery: Distal left ICA cavernous segment arterial wall calcification. No occlusion or significant stenosis. No aneurysm. Left middle cerebral artery: No occlusion or significant stenosis. No aneurysm. Left anterior cerebral artery: No occlusion or significant stenosis. No aneurysm. POSTERIOR CIRCULATION: Right vertebral artery: Patent enhancing dominant right vertebral artery. No occlusion or significant stenosis. No aneurysm. Left vertebral artery: Patent enhancing small caliber nondominant left vertebral artery distal V3 and V4 segments, likely via retrograde flow. Basilar artery: No occlusion or significant stenosis. No aneurysm. Right posterior cerebral artery: No occlusion or significant stenosis. No aneurysm. Left posterior cerebral artery: No occlusion or significant stenosis. No aneurysm. Brain: Diffuse atrophy and chronic/remote ischemic changes. Cerebral ventricles: Ventricular prominence proportional to sulci. Bones/joints: Unremarkable. No acute fracture. Soft tissues: No significant soft tissue abnormalities. PROCEDURE INFORMATION: Exam: CTA Neck With Contrast Exam date and time: 11/09/2022 10:20 PM Age: 86 years old Clinical indication: Condition or disease; Other: Slurring of speech, HX of prior CVA; Speech disturbance; Slurred speech TECHNIQUE: Imaging protocol: Computed tomographic angiography of the neck with contrast. 3D rendering (Not supervised by radiologist): MIP and/or 3D reconstructed images were created by the technologist. Radiation optimization: All CT scans at this facility use at least one of these dose optimization techniques: automated exposure control; mA and/or kV adjustment per patient size (includes targeted exams where dose is matched to clinical indication); or iterative reconstruction. Contrast material: OMNIPAQUE 350; Contrast volume: 95 ml; Contrast route: INTRAVENOUS (IV); Other protocol: This patient has received 3 known CTs and 0 known cardiac nuclear medicine studies in the 12 months prior to the current study. COMPARISON: CT head wo con* [id number] 11/09/2022 10:07 PM RADIATION DOSE METRICS: Total DLP (mGy-cm): 324.47 FINDINGS: Right common carotid artery: Patent enhancing right common carotid artery. No significant stenosis. No dissection or occlusion. Right internal carotid artery: Mild atherosclerotic plaque along the right carotid bifurcation and carotid bulb with essentially 0% proximal right ICA stenosis with respect to the distal ICA lumen. No dissection or occlusion. Right external carotid artery: Patent enhancing right external carotid artery. No occlusion or significant stenosis. Left common carotid artery: Atheromatous plaque along the left common carotid artery with [id number] less than 50% left CCA stenosis. Left internal carotid artery: Mild atherosclerotic plaque along the left carotid bifurcation and carotid bulb with essentially 0% proximal left ICA stenosis with respect to the distal ICA lumen. No dissection or occlusion. Left external carotid artery: Patent enhancing left external carotid artery. No occlusion or significant stenosis. Right vertebral artery: Patent enhancing dominant right vertebral artery without significant stenosis. No dissection or occlusion. Left vertebral artery: Proximal left vertebral artery occlusion. Enhancement of left vertebral artery distal V3 and V4 segments, likely via retrograde flow. Thyroid: 3.8 cm inferior left thyroid lobe nodule or mass with mild intrathoracic extension. Soft tissues: No significant soft tissue abnormalities. Bones/joints: No acute osseous abnormality. No acute fracture. Lungs: Left upper lobe 4 mm noncalcified pulmonary nodule. CT/CT angio headneck* [id number] IMPRESSION: 1. Patent enhancing intracranial arteries without evidence of acute large vessel occlusion at this time. 2. Patent enhancing small caliber nondominant left vertebral artery distal V3 and V4 segments, likely via retrograde flow. IMPRESSION: 1. Proximal left vertebral artery occlusion. 2. Enhancement of left vertebral artery distal V3 and V4 segments, likely via retrograde flow. 3. Patent enhancing dominant right vertebral artery. 4. No evidence of significant ICA stenosis at this time. 5. Atheromatous plaque along the left common carotid artery with [id number] less than 50% left CCA stenosis. 6. 3.8 cm inferior left thyroid lobe nodule or mass with mild intrathoracic extension. Recommend comparison with prior thyroid imaging studies versus consider nonemergent follow-up thyroid ultrasound for further evaluation. 7. Left upper lobe 4 mm noncalcified pulmonary nodule. For patients at low risk (minimal or absent history of smoking and of other known risk factors), no routine follow-up is indicated. For patients at high risk (history of smoking or of other known risk factors), consider optional CT Chest at 12 months. (Reference: Lobo) COMMENTS: Consistent with the [employer]'s Incidental Findings Committee white paper (J Am Chon Radiol 2015): In patients aged 35 years and older with an incidental thyroid nodule equal to or greater than 1.[address], MRI or extrathyroidal US, further evaluation with dedicated thyroid US is recommended for patients with normal life expectancy and without comorbidities. For smaller nodules without suspicious features, no further evaluation or follow up is recommended. REFERENCES: 1. Lobo Ward, et al. Guidelines for Management of Incidental Pulmonary Nodules Detected on CT Images: From the Fleischner Society 2017. Radiology. 2017;284(1):228-243. 2. NASCET CRITERIA. The degree of stenosis in the cervical segment of the internal carotid artery is based on NASCET criteria. Normal is no stenosis. Mild is less than 50% stenosis. Moderate is 50-69% stenosis. Severe is 70% to 99% stenosis. Total occlusion is no detectable patent lumen.
[2022-11-09 22:17] LABS: Basophils # 0.1 10^3/uL (0.0-0.1); Basophils % 0.5 %; Eosinophils # 0.1 10^3/uL (0.0-0.8); Eosinophils % 0.7 %; Hematocrit 39.1 % (37.0-47.0); Hemoglobin 12.4 g/dL (11.5-15.3); Lymphocytes # 2.9 10^3/uL (0.8-4.8); Lymphocytes % 29.5 %; Mean Corpuscular HGB Conc 31.7 g/dL (30.0-36.0); Mean Corpuscular Hemoglobin 34.9 pg (28.0-34.0); Mean Corpuscular Volume 110.1 fl (81-99); Mean Platelet Volume 10.7 fL (7.4-10.4); Monocytes # 0.8 10^3/uL (0.2-0.9); Monocytes % 8.2 %; Neutrophils # 5.92 10^3/uL (1.8-7.7); Neutrophils % 60.9 %; Nucleated Red Blood Cells % 0 %; Platelet Count 481 10^3/cmm (130-400); Red Blood Count 3.55 10^6/uL (4.1-5.3); Red Cell Distribution Width 15.8 % (12.1-15.1); White Blood Count 9.7 10^3/uL (4.0-10.0)
[2022-11-09] MEDS: dexamethasone 10 mg/mL INJ IVP (22:22)
--- NOTE | 2022-11-09 22:23 | W.ED.NEUROSD ---
HPI - Neuro Symptoms/Deficit General: Chief Complaint: Neuro Symptoms/Deficit Stated Complaint: stroke like symptoms Time Seen by Provider: 11/09/22 22:07 Source: patient and EMS Mode of arrival: EMS Limitations: no limitations History of Present Illness: 86-year-old female sent here from custodial for possible stroke they state that they gave her her night meds at 730 and did give her and nurse states she cheked her at 9 she was slurring her speech per EMS she has had some mild slurred speech she has no weakness she is able move all extremities here she has some mild slurred speech here no facial droop she is able answer all my questions appropriately she does have some dementia. Per EMS they states that different nurses had different times of onset 1 or states that she fell like she was normal at 730 but another states that she had been acting differently all day I spoke and I got the same history nurse spoke to them as well they were not really able to pin down her last known normal 1 nurse and felt like she had been slightly slurring her words throughout the day so last known normal would have been this morning. 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 Degenerative joint disease Depression GERD (gastroesophageal reflux disease) Hyperlipidemia Polycythemia rubra [place]a Surgical History History of cataract surgery History of hysterectomy Family History Other CAD (coronary artery disease) Cancer Social History Smoking and tobacco status: never smoked Alcohol intake: never NIH stroke score NIHSS: Level Of Consciousness - 1a: 0 Level Of Consciousness Questions - 1b: Both Correct Level Of Consciousness Commands - 1c: Both Correct Best Gaze - 2: Normal Visual Leblanc - 3: No Visual Loss Facial Palsy - 4: Normal Motor Arm Right - 5: No Drift Motor Arm Left - 5: No Drift Motor Leg Right - 6: No Drift Motor Leg Left - 6: No Drift Limb Ataxia - 7: Absent Sensory - 8: Normal Best Language - 9: No Aphasia Dysarthia - 10: Mild/Moderate Dysarthia Extinction And Inattention - 11: 0 Score: Total Score: 1 Physical Exam Const: COMMON NORMALS: no acute distress, patient oriented x3 and healthy appearing HENMT: COMMON NORMALS: normocephalic and atraumatic HEAD & SCALP: normocephalic and atraumatic Eye: COMMON NORMALS: Equal, round and reactive pupils present and EOMs intact bilaterally PUPIL: Yes Equal, round and reactive pupils present Neck/C-Spine: COMMON NORMALS: full ROM and supple Chest: COMMONS NORMALS: normal inspection of the chest and normal palpation of entire chest wall Resp: COMMON NORMALS: normal respiratory effort, No retractions, No use of accessory muscles and clear to auscultation bilaterally AUSCULTATION: clear to auscultation bilaterally Cardio: COMMON NORMALS: regular rate, regular rhythm and No murmurs present (Cardio) RATE: regular rate RHYTHM: regular rhythm GI: COMMON NORMALS: Normal to inspection, nondistended, normoactive bowel sounds present, Soft to palpation, non-tender and no masses PALPATION: Yes Soft to palpation Extremity: COMMON NORMALS: normal to inspection and full ROM Neuro: COMMON NORMALS: patient oriented x3 and moves all extremities CRANIAL NERVES: Yes CN normal except as noted COORDINATION/BALANCE: oiavak-zj-gnet test normal SPEECH: Other neuro speech findings (mild slurred speech) GAIT: Yes Normal gait present MOTOR EXAM: 5/5 motor strength present throughout COORDINATION: oxnaeu-mo-[id number] test normal Psych: COMMON NORMALS: mental status grossly normal, Normal thought process present and cooperative THOUGHT PROCESS: Normal thought process present Skin: COMMON NORMALS: no rashes or lesions noted and no wounds GENERAL SKIN EXAM: no rashes or lesions noted Course Vital Signs: Vital signs: Vital Signs Temperature 97.7 F 11/09/22 22:19 Pulse Rate 81 11/09/22 23:45 Respiratory Rate 17 11/09/22 23:45 Blood Pressure 140/56 11/09/22 23:45 Pulse Oximetry 92 11/09/22 23:45 Oxygen Delivery Me thod 11/09/22 23:15 MDM - Neuro Symptoms/Deficit Medical Decision Making Patient presents here with slurred speech from custodial gotten conflicting stories from multiple nurses and custodial nurse stated she believed last normal 730 another 1 said that she had been slurring her speech all day patient does have dementia not able to get a history from her nurses were also vague on her actual complaints so last known normal was likely in the morning here she does have some slight slurring of her speech but she is little sedated from her Ativan she has no other focal deficits she is able to lift all extremities she is able ambulate no facial droop at this time CTA did show a vertebral artery occlusion her NIH is too low for a clot retrieval she is not a tPA candidate as her last known normal is not definite andfrom NH was in the morning will admit at this time. Lab Data 11/09/22 22:10 11/09/22 22:10 Radiology Impressions Chest X-Ray 11/09/22 22:07 IMPRESSION: Low lung volumes with mild left basilar atelectasis versus pneumonia. Head CT 11/09/22 22:08 IMPRESSION: Diffuse atrophy and chronic/remote ischemic changes without evidence of superimposed acute infarct, hemorrhage or mass-effect at this time. ASSESSMENT: ASPECTS ([place] Stroke Program Early CT Score) is 10. Head/Neck CTA 11/09/22 22:10 IMPRESSION: 1. Patent enhancing intracranial arteries without evidence of acute large vessel occlusion at this time. 2. Patent enhancing small caliber nondominant left vertebral artery distal V3 and V4 segments, likely via retrograde flow. IMPRESSION: 1. Proximal left vertebral artery occlusion. 2. Enhancement of left vertebral artery distal V3 and V4 segments, likely via retrograde flow. 3. Patent enhancing dominant right vertebral artery. 4. No evidence of significant ICA stenosis at this time. 5. Atheromatous plaque along the left common carotid artery with [id number] less than 50% left CCA stenosis. 6. 3.8 cm inferior left thyroid lobe nodule or mass with mild intrathoracic extension. Recommend comparison with prior thyroid imaging studies versus consider nonemergent follow-up thyroid ultrasound for further evaluation. 7. Left upper lobe 4 mm noncalcified pulmonary nodule. For patients at low risk (minimal or absent history of smoking and of other known risk factors), no routine follow-up is indicated. For patients at high risk (history of smoking or of other known risk factors), consider optional CT Chest at 12 months. (Reference: Lobo) COMMENTS: Consistent with the [employer]'s Incidental Findings Committee white paper (J Am Chon Radiol 2015): In patients aged 35 years and older with an incidental thyroid nodule equal to or greater than 1.[address], MRI or extrathyroidal US, further evaluation with dedicated thyroid US is recommended for patients with normal life expectancy and without comorbidities. For smaller nodules without suspicious features, no further evaluation or follow up is recommended. REFERENCES: 1. Lobo Ward, et al. Guidelines for Management of Incidental Pulmonary Nodules Detected on CT Images: From the Fleischner Society 2017. Radiology. 2017;284(1):228-243. 2. NASCET CRITERIA. The degree of stenosis in the cervical segment of the internal carotid artery is based on NASCET criteria. Normal is no stenosis. Mild is less than 50% stenosis. Moderate is 50-69% stenosis. Severe is 70% to 99% stenosis. Total occlusion is no detectable patent lumen. ADDENDUM: 11/09/22 2116 Results were discussed with MELODY Archer at 11:52 PM [employer] 11/09/2022. Laboratory Results WBC 9.7 10^3/uL (4.0-10.0) 11/09/22 22:10 RBC 3.55 10^6/uL (4.1-5.3) L 11/09/22 22:10 Hgb 12.4 g/dL (11.5-15.3) 11/09/22 22:10 Hct 39.1 % (37.0-47.0) 11/09/22 22:10 MCV 110.1 fl (81-99) H 11/09/22 22:10 MCH 34.9 pg (28.0-34.0) H 11/09/22 22:10 MCHC 31.7 g/dL (30.0-36.0) 11/09/22 22:10 RDW 15.8 % (12.1-15.1) H 11/09/22 22:10 Plt Count 481 10^3/cmm (130-400) H 11/09/22 22:10 MPV 10.7 fL (7.4-10.4) H 11/09/22 22:10 Neut % (Auto) 60.9 % 11/09/22 22:10 Lymph % (Auto) 29.5 % 11/09/22 22:10 [place] % (Auto) 8.2 % 11/09/22 22:10 Eos % (Auto) 0.7 % 11/09/22 22:10 Baso % (Auto) 0.5 % 11/09/22 22:10 Neut # (Auto) 5.92 10^3/uL (1.8-7.7) 11/09/22 22:10 Lymph # (Auto) 2.9 10^3/uL (0.8-4.8) 11/09/22 22:10 [place] # (Auto) 0.8 10^3/uL (0.2-0.9) 11/09/22 22:10 Eos # (Auto) 0.1 10^3/uL (0.0-0.8) 11/09/22 22:10 Baso # (Auto) 0.1 10^3/uL (0.0-0.1) 11/09/22 22:10 Nucleated RBC % (auto) 0 % 11/09/22 22:10 Nucleated RBCs # 0.0 /100WBC 11/09/22 22:10 PT 13.10 SECONDS (12.1-14.9) 11/09/22 22:10 INR 0.96 (0.8-1.2) 11/09/22 22:10 APTT 23.7 SECONDS (23.9-36.7) L 11/09/22 22:10 Sodium 139 mmol/L (136-145) 11/09/22 22:10 Potassium 4.3 mmol/L (3.5-5.1) 11/09/22 22:10 Chloride 105 mmol/L (98-107) 11/09/22 22:10 Carbon Dioxide 26 mmol/L (22-29) 11/09/22 22:10 Anion Gap 12.3 (5-19) 11/09/22 22:10 BUN 29 mg/dL (8-23) H 11/09/22 22:10 Creatinine 0.9 mg/dL (0.5-0.9) 11/09/22 22:10 GFR Calculation Not Reportable 11/09/22 22:10 Glucose 100 mg/dL (65-115) 11/09/22 22:10 POC Glucose 108 mg/dL (70-110) 11/09/22 22:06 Calculated Osmolality 294 mOsm/kg (285-295) 11/09/22 22:10 Calcium 10.0 mg/dL (8.5-10.5) 11/09/22 22:10 Total Bilirubin 0.3 mg/dL (0.15-1.2) 11/09/22 22:10 AST 17 U/L (0-32) 11/09/22 22:10 ALT 10 U/L (0-33) 11/09/22 22:10 Alkaline Phosphatase 135 U/L (35-105) H 11/09/22 22:10 Total Protein 7.2 g/dL (6.6-8.7) 11/09/22 22:10 Albumin 4.0 g/dL (3.5-5.2) 11/09/22 22:10 Globulin 3.2 g/dL (1.3-4.6) 11/09/22 22:10 Urine Color Colorless (Yellow) 11/09/22 22:44 Urine Appearance Sl hazy (CLEAR) A 11/09/22 22:44 Urine pH 7 (5-7) 11/09/22 22:44 Ur Specific [place] 1.005 (1.005-1.030) 11/09/22 22:44 Urine Protein Neg (Negative) 11/09/22 22:44 Urine Glucose (UA) Norm (Normal) 11/09/22 22:44 Urine Ketones Negative (Negative) 11/09/22 22:44 Urine Blood Neg (Negative) 11/09/22 22:44 Urine Nitrate Positive (Negative) H 11/09/22 22:44 Urine Bilirubin Neg (Negative) 11/09/22 22:44 Urine Urobilinogen Norm mg/dL (Negative) 11/09/22 22:44 Ur Leukocyte Esterase Trace (Negative) H 11/09/22 22:44 Urine RBC 0-4 /hpf (0-2) H 11/09/22 22:44 Urine WBC 5-10 /hpf (0-5) H 11/09/22 22:44 Ur Squamous Epith Cells None /hpf (0-5) 11/09/22 22:44 Amorphous Sediment Not Reportable 11/09/22 22:44 Urine Bacteria 3+ /hpf (NONE) H 11/09/22 22:44 Urine Opiates Screen Negative ng/mL (Negative) 11/09/22 22:44 Ur Barbiturates Screen Negative ng/mL (Negative) 11/09/22 22:44 Ur Phencyclidine Scrn Negative ng/mL (Negative) 11/09/22 22:44 Ur Amphetamines Screen Negative ng/mL (Negative) 11/09/22 22:44 U Benzodiazepines Scrn Positive ng/mL (Negative) H 11/09/22 22:44 Urine Cocaine Screen Negative ng/mL (Negative) 11/09/22 22:44 U Marijuana (THC) Screen Negative ng/mL (Negative) 11/09/22 22:44 EKG Data EKG 1: I personally reviewed and interpreted this EKG as follows: EKG interpretation date: 11/09/22 EKG interpretation time: 22:32 Interpretation: nsr hr [address] or t wave abnormalities qrs Discharge Plan Discharge Patient Disposition: Admitted As Inpatient Clinical Impression: Slurred speech Condition: Stable Prescriptions: No Action citalopram [Celexa] 10 mg tablet 10 mg PO DAILY aspirin [Rashad Low Dose Aspirin] 81 mg tablet,delayed release (DR/EC) 81 mg PO DAILY (DME) cock up splint See Rx Instructions .Route .MEDSUPPLY Qty: 1 0RF Rx Instructions: As directed Probiotic 3 billion cell capsule 3,000 mmu cells PO DAILY Rx Instructions: administer with a meal bisacodyl 10 mg suppository 10 mg NC DAILY PRN magnesium hydroxide [[place] Milk of Magnesia] 400 mg/5 mL suspension 5 ml PO DAILY PRN (DME) FAST FORM COCK UP SPLINT See Rx Instructions .Route .MEDSUPPLY Qty: 1 0RF Rx Instructions: As directed hydroxyurea 500 mg capsule 500 mg PO DAILY Qty: 90 3RF vancomycin 125 mg capsule 125 mg PO QID Qty: 42 0RF hydrocodone-acetaminophen 5-325 mg tablet 1 tab PO BID PRN (Reason: pain) 30 Days Qty: 60 0RF quetiapine [Seroquel] 50 mg tablet 50 mg PO DAILY PRN (Reason: insomnia) Qty: 30 5RF lorazepam 1 mg tablet 1 mg PO DAILY Qty: 30 5RF lorazepam 1 mg tablet 1 mg PO DAILY PRN (Reason: anxiety) Qty: 30 5RF Rx Instructions: Additional dose to have daily as needed for anxiety. atorvastatin 40 mg Tablet 40 mg PO BEDTIME Qty: 90 0RF prednisone 5 mg Tablet 5 mg PO DAILY Qty: 6 0RF clopidogrel 75 mg Tablet 75 mg PO DAILY Qty: 90 0RF pantoprazole 40 mg Tablet,Delayed Release (Dr/Ec) 40 mg PO DAILY Qty: 42 0RF metoprolol tartrate 25 mg Tablet 25 mg PO BID@0900,2100 Qty: 180 0RF cefpodoxime 200 mg tablet 200 mg PO BID Qty: 20 0RF Rx Instructions: must administer with a meal/food Referrals: Don Haile MD [Physician] - Coding Level of Care Code ED Logistics Supply Officer for Chg Fwd Exam Comprehensive
[2022-11-09 22:29] LABS: INR 0.96 (0.8-1.2); Partial Thromboplastin Time 23.7 SECONDS (23.9-36.7)
[2022-11-09 22:38] LABS: Glucose Point of Care 108 mg/dL (70-110)
[2022-11-09 22:39] LABS: Alanine Aminotransferase 10 U/L (0-33); Alkaline Phosphatase 135 U/L (35-105); Anion Gap 12.3 (5-19); Aspartate Amino Transferase 17 U/L (0-32); Blood Urea Nitrogen 29 mg/dL (8-23); Carbon Dioxide 26 mmol/L (22-29); Chloride 105 mmol/L (98-107); Globulin 3.2 g/dL (1.3-4.6); Glucose 100 mg/dL (65-115); Osmolality Calculated 294 mOsm/kg (285-295); Potassium 4.3 mmol/L (3.5-5.1); Sodium 139 mmol/L (136-145); Total Bilirubin 0.3 mg/dL (0.15-1.2); Total Protein 7.2 g/dL (6.6-8.7)
[2022-11-09] MEDS: iohexol 350 mg/mL 500 mL Btl (per mL) IV (22:48)
[2022-11-09 23:15] LABS: Amphetamines Screen Urine Negative (Negative); Barbiturates Screen Urine Negative (Negative); Benzodiazepines Screen Urine Positive (Negative); Cocaine Screen Urine Negative (Negative); Opiate Screen Urine Negative (Negative); PCP Screen Urine Negative (Negative); THC Screen Urine Negative (Negative)
[2022-11-09 23:40] LABS: Add Urine Microscopic? YES; Bilirubin Urine Neg (Negative); Blood Urine Neg (Negative); Glucose Urine UA Norm (Normal); Ketones Urine Negative (Negative); Leukocyte Esterase Urine Trace (Negative); Nitrate Urine Positive (Negative); Protein Urine Neg (Negative); RBC Urine 0-4 /hpf (0-2); Specific Gravity, Urine 1.005 (1.005-1.030); Urine Appearance SL Hazy (CLEAR); Urine Color Colorless (Yellow); Urobilinogen Urine Norm (Negative); pH Urine 7 (5-7)
[2022-11-09 23:41] LABS: Add Urine Culture? Yes; Bacteria Urine 3+ /hpf
[2022-11-09] MEDS: aspirin 325 mg Tablet PO (23:57)
[2022-11-10] VITALS (7 sets, daily range): BP systolic 123–160; BP diastolic 54–66; PULSE 69–89; RESP 14–22; TEMP 36.3; O2SAT 92–96
--- NOTE | 2022-11-10 03:16 | PM.HP ---
Providers/Chief Complaint Admitting Physician: Montse Moore MD Chief Complaint: stroke like symptoms History of Present Illness Adia Tran is a 86 year old female referred to emergency room from her assisted living facility due to concerns for possible stroke. Exact timeline of events is not known but it appears that when her nurse went in to check on the patient at around 9 PM she was noted to have a slurred speech and she appeared to be more lethargic than at baseline. She had just received Ativan at 7:30 PM prior to onset of symptoms. And by discussing with the ER physician it appears that some other [place] [facility] staff may have noticed patient to be acting differently all day therefore her last known normal was unable to be established. Patient had no other weakness. NIH stroke scale of [address] of her head showed diffuse atrophy and remote ischemic changes without evidence of superimposed acute infarct. Head and neck CTA was negative for occlusion in the intracranial arteries, however did show proximal left vertebral artery occlusion. There was noted to be retrograde flow in the V3 and V4 segments. No significant ICA stenosis was noted. She was also noted to have a UA which was positive for nitrates and leukocyte Estrace. Patient is currently unable to participate significantly in her history. She is able to tell me her name and date of but does not know where she is. Her speech is somewhat dysarthric. Review of Systems General: Reports: ROS unobtainable due to mental status Medications/Allergies Home Medications Medication Instructions Recorded Confirmed Last Taken Type hydroxyurea 500 mg capsule 500 mg PO DAILY #90 caps 02/22/22 11/10/22 07/20/22 Rx atorvastatin 40 mg tablet 40 mg PO BEDTIME #90 tabs 07/26/22 11/10/22 11/09/22 19:00 Rx clopidogrel 75 mg tablet 75 mg PO DAILY #90 tabs 07/26/22 11/10/22 11/09/22 07:00 Rx metoprolol tartrate 25 mg tablet 25 mg PO BID@0900,2100 #180 tabs 07/26/22 11/10/22 11/09/22 19:00 Rx pantoprazole 40 mg tablet,delayed 40 mg PO DAILY #42 tabs 07/26/22 11/10/22 11/09/22 07:00 Rx release bisacodyl 10 mg rectal suppository [address] DAILY PRN Constipation 08/03/22 11/10/22 Unknown History magnesium hydroxide 400 mg/5 mL 5 ml PO DAILY PRN Constipation 08/03/22 11/10/22 Unknown History oral suspension ([place] Milk of Magnesia) lorazepam 1 mg tablet 1 mg PO DAILY anxiety #30 tabs 10/15/22 11/10/22 11/09/22 19:00 Rx acetaminophen 325 mg tablet 650 mg PO Q6H PRN Mild Pain (Scale 11/10/22 11/10/22 Unknown History Score 1-4) aluminum-mag hydroxide-simethicone 30 ml PO QID PRN Indigestion 11/10/22 11/10/22 Unknown History 200 mg-200 mg-20 mg/5 mL oral susp hydrocodone 5 mg-acetaminophen 325 1 tab PO Q4H PRN pain 11/10/22 11/10/22 Unknown History mg tablet ibuprofen 200 mg tablet 200 mg PO Q8H PRN Moderate Pain 11/10/22 11/10/22 Unknown History (Scale Score 5-6) loperamide 2 mg capsule 2 mg PO QID PRN Diarrhea 11/10/22 11/10/22 Unknown History mirtazapine 7.5 mg tablet 7.5 mg PO DAILY 11/10/22 11/10/22 11/09/22 19:00 History risperidone 0.5 mg tablet 0.5 mg PO DAILY 11/10/22 11/10/22 11/09/22 19:00 History (Risperdal) Allergies Allergy/AdvReac Type Severity Reaction Status Date / Time iodine Allergy Unknown Verified 11/10/22 00:38 PFSH Acute PFSH: Medical History Cognitive impairment 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 Degenerative joint disease Depression GERD (gastroesophageal reflux disease) Hyperlipidemia Polycythemia rubra vera Surgical History History of cataract surgery History of hysterectomy Family History Other CAD (coronary artery disease) Cancer Social History Smoking and tobacco status: never smoked Alcohol intake: never Vitals/I&O/Wt Last Vital Signs Temp 97.7 F 11/09/22 22:19 Pulse 73 11/10/22 01:06 Resp 16 11/10/22 01:06 BP 123/56 11/10/22 01:06 Pulse Ox 96 11/10/22 01:06 O2 Del Method 11/10/22 01:48 Weight last 48 hrs Weight 63.049 kg Physical Exam Narrative: General: No acute distress, AO x1-2 HEENT: PERRLA, pupils bilaterally equal and reactive, pallors not present Chest: Normal vesicular breath sounds, no added sounds, equal good air entry bilaterally CVS: S1-S2 regular, no murmurs, no tachycardia, no gallops, no rubs Abdomen: Soft, nontender, no organomegaly, bowel sounds present Neuro: No focal deficits, moving all extremities in bed. Data 11/09/22 22:10 11/09/22 22:10 Other Labs: Radiology Impressions Chest X-Ray 11/09/22 22:07 IMPRESSION: Low lung volumes with mild left basilar atelectasis versus pneumonia. Head CT 11/09/22 22:08 IMPRESSION: Diffuse atrophy and chronic/remote ischemic changes without evidence of superimposed acute infarct, hemorrhage or mass-effect at this time. ASSESSMENT: ASPECTS ([place] Stroke Program Early CT Score) is 10. Head/Neck CTA 11/09/22 22:10 IMPRESSION: 1. Patent enhancing intracranial arteries without evidence of acute large vessel occlusion at this time. 2. Patent enhancing small caliber nondominant left vertebral artery distal V3 and V4 segments, likely via retrograde flow. IMPRESSION: 1. Proximal left vertebral artery occlusion. 2. Enhancement of left vertebral artery distal V3 and V4 segments, likely via retrograde flow. 3. Patent enhancing dominant right vertebral artery. 4. No evidence of significant ICA stenosis at this time. 5. Atheromatous plaque along the left common carotid artery with [id number] less than 50% left CCA stenosis. 6. 3.8 cm inferior left thyroid lobe nodule or mass with mild intrathoracic extension. Recommend comparison with prior thyroid imaging studies versus consider nonemergent follow-up thyroid ultrasound for further evaluation. 7. Left upper lobe 4 mm noncalcified pulmonary nodule. For patients at low risk (minimal or absent history of smoking and of other known risk factors), no routine follow-up is indicated. For patients at high risk (history of smoking or of other known risk factors), consider optional CT Chest at 12 months. (Reference: Lobo) COMMENTS: Consistent with the [place]'s Incidental Findings Committee white paper (J Am Chon Radiol 2015): In patients aged 35 years and older with an incidental thyroid nodule equal to or greater than 1.[address], MRI or extrathyroidal US, further evaluation with dedicated thyroid US is recommended for patients with normal life expectancy and without comorbidities. For smaller nodules without suspicious features, no further evaluation or follow up is recommended. REFERENCES: 1. Lobo Ward, et al. Guidelines for Management of Incidental Pulmonary Nodules Detected on CT Images: From the Fleischner Society 2017. Radiology. 2017;284(1):228-243. 2. NASCET CRITERIA. The degree of stenosis in the cervical segment of the internal carotid artery is based on NASCET criteria. Normal is no stenosis. Mild is less than 50% stenosis. Moderate is 50-69% stenosis. Severe is 70% to 99% stenosis. Total occlusion is no detectable patent lumen. ADDENDUM: 11/09/222353 Results were discussed with MELODY Archer at 11:52 PM [employer] 11/09/2022. Laboratory Results WBC 9.7 10^3/uL (4.0-10.0) 11/09/22 22:10 RBC 3.55 10^6/uL (4.1-5.3) L 11/09/22 22:10 Hgb 12.4 g/dL (11.5-15.3) 11/09/22 22:10 Hct 39.1 % (37.0-47.0) 11/09/22 22:10 MCV 110.1 fl (81-99) H 11/09/22 22:10 MCH 34.9 pg (28.0-34.0) H 11/09/22 22:10 MCHC 31.7 g/dL (30.0-36.0) 11/09/22 22:10 RDW 15.8 % (12.1-15.1) H 11/09/22 22:10 Plt Count 481 10^3/cmm (130-400) H 11/09/22 22:10 MPV 10.7 fL (7.4-10.4) H 11/09/22 22:10 Neut % (Auto) 60.9 % 11/09/22 22:10 Lymph % (Auto) 29.5 % 11/09/22 22:10 [place] % (Auto) 8.2 % 11/09/22 22:10 Eos % (Auto) 0.7 % 11/09/22 22:10 Baso % (Auto) 0.5 % 11/09/22 22:10 Neut # (Auto) 5.92 10^3/uL (1.8-7.7) 11/09/22 22:10 Lymph # (Auto) 2.9 10^3/uL (0.8-4.8) 11/09/22 22:10 [place] # (Auto) 0.8 10^3/uL (0.2-0.9) 11/09/22 22:10 Eos # (Auto) 0.1 10^3/uL (0.0-0.8) 11/09/22 22:10 Baso # (Auto) 0.1 10^3/uL (0.0-0.1) 11/09/22 22:10 Nucleated RBC % (auto) 0 % 11/09/22 22:10 Nucleated RBCs # 0.0 /100WBC 11/09/22 22:10 PT 13.10 SECONDS (12.1-14.9) 11/09/22 22:10 INR 0.96 (0.8-1.2) 11/09/22 22:10 APTT 23.7 SECONDS (23.9-36.7) L 11/09/22 22:10 Sodium 139 mmol/L (136-145) 11/09/22 22:10 Potassium 4.3 mmol/L (3.5-5.1) 11/09/22 22:10 Chloride 105 mmol/L (98-107) 11/09/22 22:10 Carbon Dioxide 26 mmol/L (22-29) 11/09/22 22:10 Anion Gap 12.3 (5-19) 11/09/22 22:10 BUN 29 mg/dL (8-23) H 11/09/22 22:10 Creatinine 0.9 mg/dL (0.5-0.9) 11/09/22 22:10 GFR Calculation Not Reportable 11/09/22 22:10 Glucose 100 mg/dL (65-115) 11/09/22 22:10 POC Glucose 108 mg/dL (70-110) 11/09/22 22:06 Calculated Osmolality 294 mOsm/kg (285-295) 11/09/22 22:10 Calcium 10.0 mg/dL (8.5-10.5) 11/09/22 22:10 Total Bilirubin 0.3 mg/dL (0.15-1.2) 11/09/22 22:10 AST 17 U/L (0-32) 11/09/22 22:10 ALT 10 U/L (0-33) 11/09/22 22:10 Alkaline Phosphatase 135 U/L (35-105) H 11/09/22 22:10 Total Protein 7.2 g/dL (6.6-8.7) 11/09/22 22:10 Albumin 4.0 g/dL (3.5-5.2) 11/09/22 22:10 Globulin 3.2 g/dL (1.3-4.6) 11/09/22 22:10 Urine Color Colorless (Yellow) 11/09/22 22:44 Urine Appearance Sl hazy (CLEAR) A 11/09/22 22:44 Urine pH 7 (5-7) 11/09/22 22:44 Ur Specific [place] 1.005 (1.005-1.030) 11/09/22 22:44 Urine Protein Neg (Negative) 11/09/22 22:44 Urine Glucose (UA) Norm (Normal) 11/09/22 22:44 Urine Ketones Negative (Negative) 11/09/22 22:44 Urine Blood Neg (Negative) 11/09/22 22:44 Urine Nitrate Positive (Negative) H 11/09/22 22:44 Urine Bilirubin Neg (Negative) 11/09/22 22:44 Urine Urobilinogen Norm mg/dL (Negative) 11/09/22 22:44 Ur Leukocyte Esterase Trace (Negative) H 11/09/22 22:44 Urine RBC 0-4 /hpf (0-2) H 11/09/22 22:44 Urine WBC 5-10 /hpf (0-5) H 11/09/22 22:44 Ur Squamous Epith Cells None /hpf (0-5) 11/09/22 22:44 Amorphous Sediment Not Reportable 11/09/22 22:44 Urine Bacteria 3+ /hpf (NONE) H 11/09/22 22:44 Urine Opiates Screen Negative ng/mL (Negative) 11/09/22 22:44 Ur Barbiturates Screen Negative ng/mL (Negative) 11/09/22 22:44 Ur Phencyclidine Scrn Negative ng/mL (Negative) 11/09/22 22:44 Ur Amphetamines Screen Negative ng/mL (Negative) 11/09/22 22:44 U Benzodiazepines Scrn Positive ng/mL (Negative) H 11/09/22 22:44 Urine Cocaine Screen Negative ng/mL (Negative) 11/09/22 22:44 U Marijuana (THC) Screen Negative ng/mL (Negative) 11/09/22 22:44 A&P Assessment and plan (1) Slurred speech: (2) Altered mental status: Patient presenting from assisted living facility with chief complaints of being noted to have slurred speech. For varying accounts from [place] [facility] staff, it appears patient has not been acting like herself. She appears to be more confused than at baseline. I am unable to establish an exact baseline at this point of time. At the time of my assessment patient is oriented x1-2. Is able to tell me her name and age but not much else. Her speech is somewhat dysarthric. NIH stroke scale of 1. Not a tPA candidate as noted above. Differentials include possible stroke versus metabolic encephalopathy from UTI. Continue patient's Plavix and atorvastatin. It appears aspirin had been discontinued previously due to bleeding. Patient had a Holter monitor placed as recently as August 2022 which showed predominantly sinus rhythm with runs of intermittent V. tach. We will keep her on telemetry monitoring here. No A. fib was noted on the telemetry monitoring. Echocardiogram from July 2022 showed normal left ventricular size systolic function and wall thickness LVEF of 60%., Grade 2 diastolic dysfunction. Mild mitral and tricuspid valve regurgitation. Not repeating an echocardiogram today given 1 has been performed within the last 6 months. PT OT and speech evaluation to be performed. (3) UTI (urinary tract infection): UA positive for nitrates and leukocyte Estrace. Last urine culture from August 2022 with Enterobacter cloacae Started on cefepime 2 g IV every 12 hours based on last available susceptibilities. Will follow urine culture on this current admission. Attestations Medical Necessity Statement*: Greater than 2 midnight admission is anticipated for UTI, IV antibiotics, possible CVA, monitoring of mental status and appropriate stroke care Coding Level of Care Code Acute Code for Chg Fwd Diagnoses Slurred speech R47.81 Altered mental status R41.82 UTI (urinary tract infection) N39.0
--- NOTE | 2022-11-10 03:44 | PC.NURSE ---
Pt's daughter Deloris called to check on pt status. Updated on current status, all questions answered.
--- NOTE | 2022-11-10 04:11 | PC.NURSE ---
Addendum entered by Alissa Funk RN 11/10/22 04:30: Patient is agitated and restless. Original Note: Patient attempting to get out of bed VERY frequently. No one-on-one sitter available. Dr. Moore notified. Haldol x1 ordered.
--- NOTE | 2022-11-10 04:13 | PC.NURSE ---
Unable to do nursing dysphagia screen at this time. Patient is very restless and agitated.
[2022-11-10] MEDS: enoxaparin 40 mg/0.4 mL Syringe SUBCUT (04:19)
[2022-11-10] MEDS: haloperidol inj 5 mg/mL INJ 1 mL 1 MG IM ×2 (04:19→07:10)
[2022-11-10] MEDS: cefepime 2,000 MG in sodium chloride 0.9% (plus) 50 ML 100 MG IV (04:27)
[2022-11-10] MEDS: acetaminophen 325 mg Tablet 650 MG PO (06:19)
--- NOTE | 2022-11-10 06:23 | PC.NURSE ---
Patient slept for about one hour after the Haldol and is very restless again. I am currently staying in the room with patient due to her bed alarm going off so frequently and high fall risk. No one on one sitter available. Dr. Moore notified. See orders.
--- NOTE | 2022-11-10 06:31 | PC.NURSE ---
Addendum entered by Alissa Funk RN 11/10/22 06:40: Patient c/o back pain. PRN Tylenol given. Original Note: Patient was assisted by another nurse to the bathroom after arriving on the floor. Per this nurse, patient is very weak and requies 2 assistance. Immediately after getting back to bed, patient wanted to get up again. Patient is oriented to person only. Patient's brief has been changed twice since arrival on the floor.
[2022-11-10] MEDS: risperiDONE 0.25 mg Tablet 0.5 MG PO (07:09)
[2022-11-10] MEDS: HYDROcodone-acetaminophen 5-325 mg Tablet 1 TAB PO (07:10)
[2022-11-10 08:38] LABS: SARS Covid-2 Antigen negative (Negative)
--- NOTE | 2022-11-10 09:46 | PM.DCS ---
Discharge Providers Date of Admission: 11/10/22 00:52 Date of Discharge: November 10, 2022 Attending Provider at Admission: Montse Moore MD Attending Provider at Discharge: Tony Schultz MD Diagnoses at Discharge Discharge Diagnosis (1) Slurred speech: Status: Acute (2) Altered mental status: Status: Acute (3) UTI (urinary tract infection): Status: Acute Reason for Visit Reason for Visit: stroke like symptoms Hospital Course Hospital Course 86-year female with history of dementia, resident of [facility], present to the hospital for confusion and concern for stroke. Patient was not a tPA candidate NIH score was 1. There was concern for slurred speech however at the time of evaluation patient is awake and alert pleasant and cooperative, did well with physical therapy, I do believe her symptoms were related to benzodiazepine that she received around 7:30 PM on 11/09. CT scan is unremarkable CT head and neck is unremarkable. Family was updated. She did remarkably well with physical therapy she is deemed stable to return back to her facility. I do believe her symptoms are related to sedative effect of Ativan. She is not complaining of UTI symptoms abnormal UA noted I will give her a few days off antibiotics. Requested D-dimer for right leg edema For her hypertension I will add lisinopril, she takes metoprolol, 25 mg twice a day Physical Exam Narrative: Pleasant Able to follow commands NIH 0 Right leg edema noted Answer questions appropriately Short attention span Able to tell me her name, date of , name of her daughter Abdomen soft S1, S2 Currently doing well on room air Discharge Data Studies Completed and Pending Completed Studies During Hospitalization Category Date Time Status CT head wo con* [id number] Stat Cat Scan 11/09/22 22:08 Completed CTA head neck [CT angio headneck* [id number]] Stat Cat Scan 11/09/22 22:10 Completed XR chest 1V portable [id number] Stat Exams 11/09/22 22:07 Completed Pending at discharge Category Date Time Status Complete Blood Count w/Auto AM LABS Lab 11/11/22 04:00 Ordered Comprehensive Metabolic Panel AM LABS Lab 11/11/22 04:00 Ordered D DIMER [D Dimer] NOW Lab 11/10/22 08:51 Ordered Urine Culture Stat Lab 11/09/22 22:44 Received Radiology Impressions Chest X-Ray 11/09/22 22:07 IMPRESSION: Low lung volumes with mild left basilar atelectasis versus pneumonia. Head CT 11/09/22 22:08 IMPRESSION: Diffuse atrophy and chronic/remote ischemic changes without evidence of superimposed acute infarct, hemorrhage or mass-effect at this time. ASSESSMENT: ASPECTS ([place] Stroke Program Early CT Score) is 10. Head/Neck CTA 11/09/22 22:10 IMPRESSION: 1. Patent enhancing intracranial arteries without evidence of acute large vessel occlusion at this time. 2. Patent enhancing small caliber nondominant left vertebral artery distal V3 and V4 segments, likely via retrograde flow. IMPRESSION: 1. Proximal left vertebral artery occlusion. 2. Enhancement of left vertebral artery distal V3 and V4 segments, likely via retrograde flow. 3. Patent enhancing dominant right vertebral artery. 4. No evidence of significant ICA stenosis at this time. 5. Atheromatous plaque along the left common carotid artery with [id number] less than 50% left CCA stenosis. 6. 3.8 cm inferior left thyroid lobe nodule or mass with mild intrathoracic extension. Recommend comparison with prior thyroid imaging studies versus consider nonemergent follow-up thyroid ultrasound for further evaluation. 7. Left upper lobe 4 mm noncalcified pulmonary nodule. For patients at low risk (minimal or absent history of smoking and of other known risk factors), no routine follow-up is indicated. For patients at high risk (history of smoking or of other known risk factors), consider optional CT Chest at 12 months. (Reference: Lobo) COMMENTS: Consistent with the [place] [employer]'s Incidental Findings Committee white paper (J Am Chon Radiol 2015): In patients aged 35 years and older with an incidental thyroid nodule equal to or greater than 1.[address], MRI or extrathyroidal US, further evaluation with dedicated thyroid US is recommended for patients with normal life expectancy and without comorbidities. For smaller nodules without suspicious features, no further evaluation or follow up is recommended. REFERENCES: 1. Lobo Ward et al. Guidelines for Management of Incidental Pulmonary Nodules Detected on CT Images: From the Fleischner Society 2017. Radiology. 2017;284(1):228-243. 2. NASCET CRITERIA. The degree of stenosis in the cervical segment of the internal carotid artery is based on NASCET criteria. Normal is no stenosis. Mild is less than 50% stenosis. Moderate is 50-69% stenosis. Severe is 70% to 99% stenosis. Total occlusion is no detectable patent lumen. ADDENDUM: 11/09/22 [id number] Results were discussed with MELODY Archer at 11:52 PM DIRECTOR [employer] 11/09/2022. Laboratory Results WBC 9.7 10^3/uL (4.0-10.0) 11/09/22 22:10 RBC 3.55 10^6/uL (4.1-5.3) L 11/09/22 22:10 Hgb 12.4 g/dL (11.5-15.3) 11/09/22 22:10 Hct 39.1 % (37.0-47.0) 11/09/22 22:10 MCV 110.1 fl (81-99) H 11/09/22 22:10 MCH 34.9 pg (28.0-34.0) H 11/09/22 22:10 MCHC 31.7 g/dL (30.0-36.0) 11/09/22 22:10 RDW 15.8 % (12.1-15.1) H 11/09/22 22:10 Plt Count 481 10^3/cmm (130-400) H 11/09/22 22:10 MPV 10.7 fL (7.4-10.4) H 11/09/22 22:10 Neut % (Auto) 60.9 % 11/09/22 22:10 Lymph % (Auto) 29.5 % 11/09/22 22:10 [place] % (Auto) 8.2 % 11/09/22 22:10 Eos % (Auto) 0.7 % 11/09/22 22:10 Baso % (Auto) 0.5 % 11/09/22 22:10 Neut # (Auto) 5.92 10^3/uL (1.8-7.7) 11/09/22 22:10 Lymph # (Auto) 2.9 10^3/uL (0.8-4.8) 11/09/22 22:10 [place] # (Auto) 0.8 10^3/uL (0.2-0.9) 11/09/22 22:10 Eos # (Auto) 0.1 10^3/uL (0.0-0.8) 11/09/22 22:10 Baso # (Auto) 0.1 10^3/uL (0.0-0.1) 11/09/22 22:10 Nucleated RBC % (auto) 0 % 11/09/22 22:10 Nucleated RBCs # 0.0 /100WBC 11/09/22 22:10 PT 13.10 SECONDS (12.1-14.9) 11/09/22 22:10 INR 0.96 (0.8-1.2) 11/09/22 22:10 APTT 23.7 SECONDS (23.9-36.7) L 11/09/22 22:10 Sodium 139 mmol/L (136-145) 11/09/22 22:10 Potassium 4.3 mmol/L (3.5-5.1) 11/09/22 22:10 Chloride 105 mmol/L (98-107) 11/09/22 22:10 Carbon Dioxide 26 mmol/L (22-29) 11/09/22 22:10 Anion Gap 12.3 (5-19) 11/09/22 22:10 BUN 29 mg/dL (8-23) H 11/09/22 22:10 Creatinine 0.9 mg/dL (0.5-0.9) 11/09/22 22:10 GFR Calculation Not Reportable 11/09/22 22:10 Glucose 100 mg/dL (65-115) 11/09/22 22:10 POC Glucose 108 mg/dL (70-110) 11/09/22 22:06 Calculated Osmolality 294 mOsm/kg (285-295) 11/09/22 22:10 Calcium 10.0 mg/dL (8.5-10.5) 11/09/22 22:10 Total Bilirubin 0.3 mg/dL (0.15-1.2) 11/09/22 22:10 AST 17 U/L (0-32) 11/09/22 22:10 ALT 10 U/L (0-33) 11/09/22 22:10 Alkaline Phosphatase 135 U/L (35-105) H 11/09/22 22:10 Total Protein 7.2 g/dL (6.6-8.7) 11/09/22 22:10 Albumin 4.0 g/dL (3.5-5.2) 11/09/22 22:10 Globulin 3.2 g/dL (1.3-4.6) 11/09/22 22:10 Urine Color Colorless (Yellow) 11/09/22 22:44 Urine Appearance Sl hazy (CLEAR) A 11/09/22 22:44 Urine pH 7 (5-7) 11/09/22 22:44 Ur Specific [place] 1.005 (1.005-1.030) 11/09/22 22:44 Urine Protein Neg (Negative) 11/09/22 22:44 Urine Glucose (UA) Norm (Normal) 11/09/22 22:44 Urine Ketones Negative (Negative) 11/09/22 22:44 Urine Blood Neg (Negative) 11/09/22 22:44 Urine Nitrate Positive (Negative) H 11/09/22 22:44 Urine Bilirubin Neg (Negative) 11/09/22 22:44 Urine Urobilinogen Norm mg/dL (Negative) 11/09/22 22:44 Ur Leukocyte Esterase Trace (Negative) H 11/09/22 22:44 Urine RBC 0-4 /hpf (0-2) H 11/09/22 22:44 Urine WBC 5-10 /hpf (0-5) H 11/09/22 22:44 Ur Squamous Epith Cells None /hpf (0-5) 11/09/22 22:44 Amorphous Sediment Not Reportable 11/09/22 22:44 Urine Bacteria 3+ /hpf (NONE) H 11/09/22 22:44 Urine Opiates Screen Negative ng/mL (Negative) 11/09/22 22:44 Ur Barbiturates Screen Negative ng/mL (Negative) 11/09/22 22:44 Ur Phencyclidine Scrn Negative ng/mL (Negative) 11/09/22 22:44 Ur Amphetamines Screen Negative ng/mL (Negative) 11/09/22 22:44 U Benzodiazepines Scrn Positive ng/mL (Negative) H 11/09/22 22:44 Urine Cocaine Screen Negative ng/mL (Negative) 11/09/22 22:44 U Marijuana (THC) Screen Negative ng/mL (Negative) 11/09/22 22:44 SARS-CoV-2 Ag (Rapid) negative (Negative) 11/10/22 07:59 Vitals Last Vital Signs Temp 97.3 F L 11/10/22 08:00 Pulse 69 11/10/22 08:27 Resp 18 11/10/22 08:00 BP 155/64 11/10/22 08:00 Pulse Ox 92 11/10/22 08:27 O2 Del Method 11/10/22 08:27 Discharge Plan Discharge Patient Disposition: Xfer SNF Condition: Stable Prescriptions: New levofloxacin 750 mg tablet 750 mg PO DAILY 5 Days Qty: 5 0RF lisinopril 10 mg tablet 10 mg PO DAILY Qty: 60 1RF furosemide [Lasix] 20 mg tablet 20 mg PO DAILY PRN (Reason: Leg edema) Qty: 20 0RF Continued bisacodyl 10 mg suppository 10 mg [place] DAILY PRN (Reason: Constipation) magnesium hydroxide [[place] Milk of Magnesia] 400 mg/5 mL suspension 5 ml PO DAILY PRN (Reason: Constipation) hydroxyurea 500 mg capsule 500 mg PO DAILY Qty: 90 3RF acetaminophen 325 mg tablet 650 mg PO Q6H PRN (Reason: Mild Pain (Scale Score 1-4)) alum-mag hydroxide-simeth 200-200-20 mg/5 mL Suspension 30 ml PO QID PRN (Reason: Indigestion) Rx Instructions: administer between meals and at bedtime hydrocodone-acetaminophen 5-325 mg tablet 1 tab PO Q4H PRN (Reason: pain) loperamide 2 mg Capsule 2 mg PO QID PRN (Reason: Diarrhea) Risperdal 0.5 mg Tablet 0.5 mg PO DAILY mirtazapine 7.5 mg Tablet 7.5 mg PO DAILY atorvastatin 40 mg Tablet 40 mg PO BEDTIME Qty: 90 0RF clopidogrel 75 mg Tablet 75 mg PO DAILY Qty: 90 0RF pantoprazole 40 mg Tablet,Delayed Release (Dr/Ec) 40 mg PO DAILY Qty: 42 0RF metoprolol tartrate 25 mg Tablet 25 mg PO BID@0900,2100 Qty: 180 0RF Discontinued lorazepam 1 mg tablet 1 mg PO DAILY Qty: 30 5RF ibuprofen 200 mg Tablet 200 mg PO Q8H PRN (Reason: Moderate Pain (Scale Score 5-6)) Discharge Orders: Discharge Order (Routine); Ordered 11/10/22 Ordered By: Tony Schultz Referrals: Don Haile MD [Physician] - Discharge Attestations Time Spent in Discharge Care*: less than 30 min Quality Metrics Clinical Quality Measures [ No reported AMI, CVA or VTE this stay] Coding Level of Care Code Acute Chg FW DC note Diagnoses Slurred speech R47.81 Altered mental status R41.82 UTI (urinary tract infection) N39.0
[2022-11-10] MEDS: pantoprazole DR 40 mg Tablet PO (09:53)
[2022-11-10] MEDS: mirtazapine 15 mg Tablet 7.5 MG PO (09:53)
[2022-11-10] MEDS: clopidogrel 75 mg Tablet PO (09:53)
[2022-11-10] MEDS: metoprolol tartrate 25 mg Tablet PO (09:54)
--- NOTE | 2022-11-10 10:19 | USCV_ITS ---
Adia Tran Age: 86 Gender: F : 1935 Exam Date: 11/10/2022 10:36 Ordering Phys: Tony Schultz MD Technologist: Cedrick Rios Exam Location: [facility] [place]_ Indication: right leg edema PROCEDURES: Venous duplex imaging was performed in bilateral lower extremities. The following venous structures were evaluated: common femoral vein, profunda vein, proximal portion of the greater saphenous vein, superficial femoral vein, and the popliteal vein. In addition, the posterior tibial and peroneal trunk were evaluated. Serial compression, augmentation maneuvers, and spectral Doppler flow evaluation were performed. FINDINGS: Normal 2-D Doppler and augmentation and compressibility throughout the lower extremity venous structures. Additional imaging through the proximal calf veins also reveals no thrombus. Limited evaluation of the greater saphenous vein is patent with no thrombus.. There is a fluid appearing area medial to the right knee. CONCLUSIONS No evidence of right lower extremity DVT. No evidence of left lower extremity DVT. Small fluid collection medial right knee measuring 1.4 x 0.9 x 2.3cm Freddy Campo MD (Electronically Signed) Final Date: 10 November 2022 14:45 S
[2022-11-10 11:25] LABS: D Dimer 0.66 ug/mIFEU (0-0.59)
[2022-11-10] MEDS: hydroxyurea 500 mg Capsule PO (12:27)
== END 2022-11-10 15:55 | disposition home or self-care (01) | DRG 690 ==
LOC: ER 11-10 00:09 → MEDSURG 11-10 00:52
PROVIDERS: Admitting Provider Student in an Organized Health Care Education/Training Program; Emergency Provider Emergency Medicine; Visit Provider Internal Medicine
DX: N39.0 Urinary tract infection, site not specified (principal); I69.951 Hemiplegia and hemiparesis following unspecified cerebrovascular disease affecting right dominant side; T42.4X5A Adverse effect of benzodiazepines, initial encounter; R47.81 Slurred speech; F03.90 Unspecified dementia, unspecified severity, without behavioral disturbance, psychotic disturbance, mood disturbance, and anxiety; I10 Essential (primary) hypertension; Z79.891 Long term (current) use of opiate analgesic; Z79.02 Long term (current) use of antithrombotics/antiplatelets; I65.02 Occlusion and stenosis of left vertebral artery; F32.A Depression, unspecified; K21.9 Gastro-esophageal reflux disease without esophagitis; E78.5 Hyperlipidemia, unspecified; D45 Polycythemia vera
CPT/HCPCS: 36415; 36416; 70450; 70496; 70498; 71045; 80053; 80306; 81001; 82962; 85025; 85378; 85610; 85730; 87077; 87086; 87186; 87426; 92523; 92610; 93005; 93970; 96372; 96374; 96375; 97116; 97161; 97166; 99285; J0692; J1100; J1630; J1650; J2930; J8999; Q9967

== ENCOUNTER 2022-11-19 11:30 | Emergency (ER) | payer MEDICARE, BC, SELFPAY ==
[2022-11-19] VITALS (13 sets, daily range): BP systolic 116–178; BP diastolic 47–129; PULSE 77; RESP 18; O2SAT 95–100; BMI 22.3
--- NOTE | 2022-11-19 12:19 | W.ED.GENADLT ---
HPI - General Adult General: Chief complaint: General Medical Stated complaint: AMS/ NOT EATING OR DRINKING Time Seen by Provider: 11/19/22 12:07 Source: patient and EMS Mode of arrival: ambulatory History of Present Illness: This 86-year-old resident of a care home was brought into the ER for evaluation. prison staff had called for altered mental status but it appears that patient is alert and oriented x3. She complains primarily of pain in the right leg that started a while back . Patient is a poor historian. She is clinically stable and is in no acute distress. 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 Degenerative joint disease Depression GERD (gastroesophageal reflux disease) Hyperlipidemia Polycythemia rubra vera Surgical History History of cataract surgery History of hysterectomy Family History Other CAD (coronary artery disease) Cancer Social History Smoking and tobacco status: never smoked Alcohol intake: never Physical Exam Const: COMMON NORMALS: no acute distress, patient oriented x3, no limitations and alert HENMT: COMMON NORMALS: normocephalic HEAD & SCALP: normocephalic Eye: COMMON NORMALS: EOMs intact bilaterally Neck/C-Spine: COMMON NORMALS: full ROM and supple Chest: COMMONS NORMALS: normal inspection of the chest Resp: COMMON NORMALS: normal respiratory effort, No retractions, No use of accessory muscles and clear to auscultation bilaterally AUSCULTATION: clear to auscultation bilaterally Cardio: COMMON NORMALS: regular rate, regular rhythm and No murmurs present (Cardio) RATE: regular rate RHYTHM: regular rhythm GI: COMMON NORMALS: Normal to inspection, nondistended, normoactive bowel sounds present and non-tender : COMMON NORMALS: Yes no CVA tenderness BLADDER/KIDNEY EXAM: Yes no CVA tenderness Back/Pelvis: COMMON NORMALS: no CVA tenderness and no thoracic nor lumbar tenderness Extremity: GENERAL: Yes normal exam except as noted OTHER: Tenderness over the right calf and lower leg. No redness or swelling to suggest cellulitis or trauma. Full range of knee and ankle movement. No distal neurovascular deficit. Neuro: COMMON NORMALS: patient oriented x3 and no focal motor deficits SENSORIUM/ORIENTATION: Yes alert Psych: COMMON NORMALS: mental status grossly normal and cooperative Course Vital Signs: Vital signs: Vital Signs Blood Pressure 165/129 11/19/22 14:30 Pulse Oximetry 96 11/19/22 14:30 Oxygen Delivery Me thod 11/19/22 11:33 [facility] - General Adult Medical Decision Making Medical decision making: Though patient was brought in for altered mental status, she was able to answer questions and was oriented on arrival. She primarily complained of pain in the right lower extremity. Venous Doppler ultrasound of that extremity reveals no DVT. She has no signs of cellulitis in that extremity. Completed blood tests are unremarkable. While in ER, patient got agitated and was removing her blood pressure cuff and wanting to go home. She has a history of dementia and is on 1 mg Ativan and also hydrocodone in addition to ibuprofen, risperidone and quetiapine. With stable vital signs, there is no indication to admit her. Her agitation may be related to sundowning as a result of her dementia. She will continue her home medications but will follow-up with her primary care physician in 2 to 3 days for reevaluation. Return instructions provided. Lab Data 11/19/22 11:51 11/19/22 11:51 Laboratory Results WBC 10.2 10^3/uL (4.0-10.0) H 11/19/22 11:51 RBC 3.82 10^6/uL (4.1-5.3) L 11/19/22 11:51 Hgb 13.3 g/dL (11.5-15.3) 11/19/22 11:51 Hct 41.0 % (37.0-47.0) 11/19/22 11:51 MCV 107.3 fl (81-99) H 11/19/22 11:51 MCH 34.8 pg (28.0-34.0) H 11/19/22 11:51 MCHC 32.4 g/dL (30.0-36.0) 11/19/22 11:51 RDW 15.4 % (12.1-15.1) H 11/19/22 11:51 Plt Count 466 10^3/cmm (130-400) H 11/19/22 11:51 MPV 10.9 fL (7.4-10.4) H 11/19/22 11:51 Neut % (Auto) 68.0 % 11/19/22 11:51 Lymph % (Auto) 22.6 % 11/19/22 11:51 [place] % (Auto) 8.0 % 11/19/22 11:51 Eos % (Auto) 0.8 % 11/19/22 11:51 Baso % (Auto) 0.3 % 11/19/22 11:51 Neut # (Auto) 6.96 10^3/uL (1.8-7.7) 11/19/22 11:51 Lymph # (Auto) 2.3 10^3/uL (0.8-4.8) 11/19/22 11:51 [place] # (Auto) 0.8 10^3/uL (0.2-0.9) 11/19/22 11:51 Eos # (Auto) 0.1 10^3/uL (0.0-0.8) 11/19/22 11:51 Baso # (Auto) 0.0 10^3/uL (0.0-0.1) 11/19/22 11:51 Nucleated RBC % (auto) 0 % 11/19/22 11:51 Nucleated RBCs # 0.0 /100WBC 11/19/22 11:51 Sodium 141 mmol/L (136-145) 11/19/22 11:51 Potassium 4.8 mmol/L (3.5-5.1) 11/19/22 11:51 Chloride 106 mmol/L (98-107) 11/19/22 11:51 Carbon Dioxide 26 mmol/L (22-29) 11/19/22 11:51 Anion Gap 13.8 (5-19) 11/19/22 11:51 BUN 24 mg/dL (8-23) H 11/19/22 11:51 Creatinine 0.8 mg/dL (0.5-0.9) 11/19/22 11:51 GFR Calculation Not Reportable 11/19/22 11:51 Glucose 88 mg/dL (65-115) 11/19/22 11:51 Calculated Osmolality 295 mOsm/kg (285-295) 11/19/22 11:51 Calcium 9.9 mg/dL (8.5-10.5) 11/19/22 11:51 Total Bilirubin 0.8 mg/dL (0.15-1.2) 11/19/22 11:51 AST 16 U/L (0-32) 11/19/22 11:51 ALT 9 U/L (0-33) 11/19/22 11:51 Alkaline Phosphatase 127 U/L (35-105) H 11/19/22 11:51 Total Protein 6.0 g/dL (6.6-8.7) L 11/19/22 11:51 Albumin 3.8 g/dL (3.5-5.2) 11/19/22 11:51 Globulin 2.2 g/dL (1.3-4.6) 11/19/22 11:51 Urine Color Yellow (Yellow) 11/19/22 12:58 Urine Appearance Clear (CLEAR) 11/19/22 12:58 Urine pH 6.5 (5-7) 11/19/22 12:58 Ur Specific [place] 1.015 (1.005-1.030) 11/19/22 12:58 Urine Protein Neg (Negative) 11/19/22 12:58 Urine Glucose (UA) Norm (Normal) 11/19/22 12:58 Urine Ketones Negative (Negative) 11/19/22 12:58 Urine Blood Neg (Negative) 11/19/22 12:58 Urine Nitrate Negative (Negative) 11/19/22 12:58 Urine Bilirubin Neg (Negative) 11/19/22 12:58 Urine Urobilinogen Neg mg/dL (Negative) 11/19/22 12:58 Ur Leukocyte Esterase Negative (Negative) 11/19/22 12:58 Discharge Plan Discharge Patient Disposition: Home Clinical Impression: Acute pain of right lower extremity Condition: Stable Prescriptions: No Action bisacodyl 10 mg suppository 10 mg NH DAILY PRN (Reason: Constipation) Rx Instructions: if no bm in 12 hours call licensed nurse magnesium hydroxide [[place] Milk of Magnesia] 400 mg/5 mL suspension See Rx Instructions .ROUTE .COMPLEX Rx Instructions: 30ml po if no bm in 3 days or for complaint of constipation. if no bm in 12 hours after mom was given give bisacodyl suppository per order acetaminophen 325 mg tablet 650 mg PO Q6H PRN (Reason: Mild Pain (Scale Score 1-4)) alum-mag hydroxide-simeth 200-200-20 mg/5 mL Suspension 30 ml PO Q4H PRN (Reason: Heartburn/upset stomach) Rx Instructions: notify md if 4 doses or more are taken within 24 hour period or has fever abd pain or bloddy stool hydrocodone-acetaminophen 5-325 mg tablet 1 tab PO BID PRN (Reason: pain) loperamide 2 mg Capsule See Rx Instructions .ROUTE .COMPLEX PRN (Reason: Diarrhea) Rx Instructions: take 2 caps po after first loose stool, then 1 cap after each loose stool *max of 8 caps in 24 hours* mirtazapine 7.5 mg Tablet 7.5 mg PO BEDTIME@20 ibuprofen 200 mg Tablet 400 mg PO Q8H PRN (Reason: Pain) lorazepam 1 mg tablet 1 mg PO DAILY PRN (Reason: Anxiety) Rx Instructions: may have additional 1 tab daily as needed for anxiety risperidone 0.5 mg tablet 0.5 mg PO BEDTIME@20 Rx Instructions: and may increase to take a second tab at bedtime after 3 days due to sundowners quetiapine 50 mg tablet 50 mg PO DAILY PRN (Reason: Insomnia) atorvastatin 40 mg tablet 40 mg PO BEDTIME@20 hydroxyurea 500 mg capsule 500 mg PO DAILY@08 clopidogrel 75 mg tablet 75 mg PO DAILY@08 pantoprazole 40 mg tablet,delayed release (DR/EC) 40 mg PO DAILY@08 lisinopril 10 mg tablet 10 mg PO DAILY@08 furosemide 20 mg tablet 20 mg PO DAILY PRN (Reason: Edema) metoprolol tartrate 25 mg tablet 25 mg PO BID@08,16 Discharge Orders: Discharge ED (Routine); Ordered 11/19/22 Ordered By: Donald Sawyer Referrals: Kvng Griffin, [Primary Care Provider] - Discharge Diet: Usual diet Discharge Activity: Resume usual activity Patient Instructions: Opioid Safety, Pain Management Activity Restrictions/Additional Instructions: Take the pain medications you already have as needed for right leg pain. Maintain adequate fluid intake. Call your primary care physician's office as soon as possible to schedule a follow-up visit. Return if you develop any new or worsening symptoms. Coding Level of Care Code ED Water Trainer for Chg Fwd Exam Comprehensive
--- NOTE | 2022-11-19 12:27 | USCV_ITS ---
Adia Tran Age: 86 Gender: F : 1935 Exam Date: 11/19/2022 13:17 Ordering Phys: Donald Sawyer MD Technologist: GAURAV [place] [facility] [place]: rt lower extremity pain HISTORY: Lower extremity pain. PROCEDURES: Venous duplex imaging was performed in only the right lower extremity. Serial compression, augmentation maneuvers, and spectral Doppler flow evaluation were performed. FINDINGS: Normal 2-D Doppler and augmentation and compressibility throughout the lower extremity venous structures. Additional imaging through the proximal calf veins also reveals no thrombus. Limited evaluation of the greater saphenous vein is patent with no thrombus. CONCLUSIONS No DVT right lower extremity. Dr. Meli Wilder DO (Electronically Signed) Final Date: 19 November 2022 14:38 S
--- NOTE | 2022-11-19 12:31 | PC.PHAR ---
pt is from [facility] [phone]-per claudia from [place] states the pt had all am meds and prn ibuprofen today-
[2022-11-19 12:47] LABS: Basophils % 0.3 %; Eosinophils # 0.1 10^3/uL (0.0-0.8); Eosinophils % 0.8 %; Hemoglobin 13.3 g/dL (11.5-15.3); Lymphocytes # 2.3 10^3/uL (0.8-4.8); Lymphocytes % 22.6 %; Mean Corpuscular HGB Conc 32.4 g/dL (30.0-36.0); Mean Corpuscular Hemoglobin 34.8 pg (28.0-34.0); Mean Corpuscular Volume 107.3 fl (81-99); Mean Platelet Volume 10.9 fL (7.4-10.4); Monocytes # 0.8 10^3/uL (0.2-0.9); Neutrophils # 6.96 10^3/uL (1.8-7.7); Nucleated Red Blood Cells % 0 %; Platelet Count 466 10^3/cmm (130-400); Red Blood Count 3.82 10^6/uL (4.1-5.3); Red Cell Distribution Width 15.4 % (12.1-15.1); White Blood Count 10.2 10^3/uL (4.0-10.0)
[2022-11-19 13:00] LABS: Alanine Aminotransferase 9 U/L (0-33); Albumin Level 3.8 g/dL (3.5-5.2); Alkaline Phosphatase 127 U/L (35-105); Anion Gap 13.8 (5-19); Aspartate Amino Transferase 16 U/L (0-32); Blood Urea Nitrogen 24 mg/dL (8-23); Calcium 9.9 mg/dL (8.5-10.5); Carbon Dioxide 26 mmol/L (22-29); Chloride 106 mmol/L (98-107); Globulin 2.2 g/dL (1.3-4.6); Glucose 88 mg/dL (65-115); Osmolality Calculated 295 mOsm/kg (285-295); Potassium 4.8 mmol/L (3.5-5.1); Sodium 141 mmol/L (136-145); Total Bilirubin 0.8 mg/dL (0.15-1.2)
[2022-11-19 13:03] LABS: Add Urine Microscopic? NO; Charge for UA Resulting for Rev
[2022-11-19 13:07] LABS: Bilirubin Urine Neg (Negative); Blood Urine Neg (Negative); Glucose Urine UA Norm (Normal); Ketones Urine Negative (Negative); Leukocyte Esterase Urine Negative (Negative); Nitrate Urine Negative (Negative); Protein Urine Neg (Negative); Specific Gravity, Urine 1.015 (1.005-1.030); Urine Appearance Clear (CLEAR); Urine Color Yellow (Yellow); Urobilinogen Urine Neg (Negative); pH Urine 6.5 (5-7)
[2022-11-19] MEDS: sodium chloride 0.9% 1,000 ML 999 ML IV (13:10)
[2022-11-19] MEDS: LORazepam 2 mg/mL INJ 1 mL 0.5 MG IVP (15:52)
--- NOTE | 2022-11-19 17:50 | PC.NURSE ---
Pt report called Jessica at [facility]. Pt nurse informed dried feces on pt perineum. Pt nurse informed of pt status, lab results, and significant findings.
== END 2022-11-19 17:52 | disposition home or self-care (01) ==
PROVIDERS: Emergency Provider Family Medicine; PCP Family Medicine
DX: M79.661 Pain in right lower leg (principal); R41.82 Altered mental status, unspecified; F03.90 Unspecified dementia, unspecified severity, without behavioral disturbance, psychotic disturbance, mood disturbance, and anxiety
CPT/HCPCS: 36415; 80053; 81003; 85025; 93971; 96361; 96374; 99285; J2060; J7030

== ENCOUNTER 2023-01-10 13:56 | Outpatient (CLI) | payer MEDICARE, BC, SELFPAY ==
[2023-01-10 14:17] LABS: Add Urine Microscopic? YES; Bilirubin Urine Neg (Negative); Blood Urine 2+ (Negative); Glucose Urine UA Norm (Normal); Ketones Urine 1+ (Negative); Leukocyte Esterase Urine 2+ (Negative); Nitrate Urine Negative (Negative); Protein Urine Neg (Negative); Urine Appearance Cloudy (CLEAR); Urine Color Yellow (Yellow); Urobilinogen Urine Neg (Negative); pH Urine 6 (5-7)
[2023-01-10 14:18] LABS: Bacteria Urine 4+ /hpf; WBC Urine 40-55 /hpf (0-5)
[2023-01-10 14:20] LABS: Add Urine Culture? No
== END 2023-01-10 13:57 | disposition home or self-care (01) ==
LOC: LAB 13:57
PROVIDERS: PCP Family Medicine; Visit Provider Family Medicine
DX: N39.0 Urinary tract infection, site not specified (principal)
CPT/HCPCS: 81001; 87077; 87086; 87186

== ENCOUNTER 2023-02-01 13:39 | Outpatient (CLI) | payer MEDICARE, BC, SELFPAY ==
[2023-02-01 14:15] LABS: Add Urine Microscopic? YES; Bilirubin Urine Neg (Negative); Blood Urine 2+ (Negative); Glucose Urine UA Norm (Normal); Ketones Urine Negative (Negative); Leukocyte Esterase Urine Negative (Negative); Nitrate Urine Negative (Negative); Protein Urine Neg (Negative); Urine Appearance Clear (CLEAR); Urine Color Yellow (Yellow); Urobilinogen Urine Norm (Negative); pH Urine 5 (5-7)
[2023-02-01 14:25] LABS: WBC Urine 0-4 /hpf (0-5)
[2023-02-01 14:26] LABS: Bacteria Urine TRACE /hpf; Calcium Oxalate Crystals Urine 40-55 /hpf
== END 2023-02-01 13:40 | disposition home or self-care (01) ==
LOC: LAB 13:41
PROVIDERS: PCP Family Medicine; Visit Provider Family Medicine
DX: N39.0 Urinary tract infection, site not specified (principal)
CPT/HCPCS: 81001; 87077; 87086; 87186

== ENCOUNTER 2023-05-07 16:34 | Outpatient (CLI) | payer MEDICARE, BC, SELFPAY ==
[2023-05-07 16:48] LABS: Add Urine Microscopic? NO; Charge for UA Resulting for Rev
[2023-05-07 17:06] LABS: Glucose Urine UA Norm (Normal); Protein Urine Neg (Negative); Urine Appearance Clear (CLEAR); Urine Color Yellow (Yellow); pH Urine 5 (5-7)
[2023-05-07 17:07] LABS: Bilirubin Urine Neg (Negative); Blood Urine Neg (Negative); Ketones Urine Negative (Negative); Leukocyte Esterase Urine Negative (Negative); Nitrate Urine Negative (Negative); Urobilinogen Urine Norm (Negative)
== END 2023-05-07 16:35 | disposition home or self-care (01) ==
LOC: LAB 16:35
PROVIDERS: PCP Family Medicine; Visit Provider Family Medicine
DX: N39.0 Urinary tract infection, site not specified (principal)
CPT/HCPCS: 81003; 87086

== ENCOUNTER 2023-06-28 13:44 | Outpatient (CLI) | payer MEDICARE, BC, SELFPAY ==
[2023-06-28 14:16] LABS: Urine Appearance Clear (CLEAR); Urine Color Yellow (Yellow)
[2023-06-28 14:17] LABS: Add Urine Microscopic? YES; Bilirubin Urine Neg (Negative); Blood Urine 2+ (Negative); Glucose Urine UA Norm (Normal); Ketones Urine Negative (Negative); Leukocyte Esterase Urine Negative (Negative); Nitrate Urine Negative (Negative); Protein Urine Neg (Negative); Specific Gravity, Urine 1.015 (1.005-1.030); Urobilinogen Urine Norm (Negative); pH Urine 5 (5-7)
[2023-06-28 14:18] LABS: Add Urine Culture? No
== END 2023-06-28 13:45 | disposition home or self-care (01) ==
PROVIDERS: PCP Family Medicine; Visit Provider Family Medicine
DX: N39.0 Urinary tract infection, site not specified (principal)
CPT/HCPCS: 81001; 87086

== ENCOUNTER 2023-08-02 13:35 | Outpatient (CLI) | payer MEDICARE, BC, SELFPAY ==
[2023-08-02 13:41] LABS: Add Urine Microscopic? NO; Charge for UA Resulting for Rev
[2023-08-02 14:10] LABS: Bilirubin Urine Neg (Negative); Blood Urine Neg (Negative); Glucose Urine UA Norm (Normal); Ketones Urine Negative (Negative); Leukocyte Esterase Urine Negative (Negative); Nitrate Urine Negative (Negative); Protein Urine Neg (Negative); Specific Gravity, Urine 1.015 (1.005-1.030); Sulfosalicylic Acid Urine Negative (Negative); Urine Appearance Clear (CLEAR); Urine Color Yellow (Yellow); Urobilinogen Urine Norm (Negative); pH Urine 5 (5-7)
== END 2023-08-02 13:36 | disposition home or self-care (01) ==
LOC: LAB 13:36
PROVIDERS: PCP Family Medicine; Visit Provider Family Medicine
DX: N39.0 Urinary tract infection, site not specified (principal)
CPT/HCPCS: 81003; 87086

== ENCOUNTER 2023-11-10 22:43 | Outpatient (CLI) | payer MEDICARE, BC, SELFPAY ==
[2023-11-10 22:54] LABS: Add Urine Microscopic? NO; Charge for UA Resulting for Rev
[2023-11-10 23:11] LABS: Urine Appearance Clear (CLEAR); Urine Color Light yellow (Yellow); pH Urine 5 (5-7)
[2023-11-10 23:12] LABS: Bilirubin Urine Neg (Negative); Blood Urine Neg (Negative); Glucose Urine UA Norm (Normal); Ketones Urine Negative (Negative); Leukocyte Esterase Urine Negative (Negative); Nitrate Urine Negative (Negative); Protein Urine Neg (Negative); Urobilinogen Urine Norm (Negative)
== END 2023-11-10 22:44 | disposition home or self-care (01) ==
PROVIDERS: PCP Family Medicine; Visit Provider Family Medicine
DX: Z01.89 Encounter for other specified special examinations (principal); N39.0 Urinary tract infection, site not specified
CPT/HCPCS: 81003; 87086

== ENCOUNTER 2023-12-15 14:08 | Outpatient (CLI) | payer MEDICARE, BC, SELFPAY ==
[2023-12-15 14:44] LABS: Basophils % 0.5 %; Eosinophils # 0.1 10^3/uL (0.0-0.8); Eosinophils % 0.7 %; Hematocrit 35.2 % (36-47); Lymphocytes # 2.6 10^3/uL (0.8-4.8); Lymphocytes % 29.4 %; Mean Corpuscular HGB Conc 32.7 g/dL (30-55); Mean Corpuscular Hemoglobin 36.9 pg (27-33); Mean Corpuscular Volume 112.8 fl (85-98); Mean Platelet Volume 10.7 fL (7.4-10.4); Monocytes # 0.5 10^3/uL (0.2-0.9); Monocytes % 6.1 %; Neutrophils # 5.51 10^3/uL (1.8-7.7); Neutrophils % 63.1 %; Nucleated Red Blood Cells % 0 %; Platelet Count 447 10^3/cmm (157-399); Red Blood Count 3.12 10^6/uL (3.85-5.65); Red Cell Distribution Width 15.8 % (12.1-15.1); White Blood Count 8.72 10^3/uL (3.29-11.43)
[2023-12-15 15:07] LABS: Estmated Average Glucose 128; Hemoglobin A1C 6.1 % (4.0-6.0)
[2023-12-15 15:14] LABS: Alanine Aminotransferase 10 U/L (0-33); Albumin Level 3.9 g/dL (3.5-5.2); Alkaline Phosphatase 110 U/L (35-105); Anion Gap 13.9 (5-19); Aspartate Amino Transferase 18 U/L (0-32); Blood Urea Nitrogen 29 mg/dL (8-23); Calcium 9.9 mg/dL (8.5-10.5); Carbon Dioxide 28 mmol/L (22-29); Chloride 102 mmol/L (98-107); Chol HDL Ratio 4.14 mg/dL (0.0-4.40); Cholesterol 120 mg/dL (0-200); Globulin 3.3 g/dL (1.3-4.6); Glucose 122 mg/dL (65-115); HDL Cholesterol 29 mg/dL (60-100); LDL Cholesterol Calculated 61 mg/dL (50-129); Osmolality Calculated 295 mOsm/kg (285-295); Potassium 4.9 mmol/L (3.5-5.1); Sodium 139 mmol/L (136-145); Thyroid Stimulating Hormone 1.34 uIU/mL (0.27-4.20); Total Bilirubin 0.3 mg/dL (0.15-1.2); Total Protein 7.2 g/dL (6.6-8.7); Triglycerides 150 mg/dL (0-150)
[2023-12-15 17:36] LABS: Vitamin B12 312 pg/mL (232-1245)
== END 2023-12-15 14:09 | disposition home or self-care (01) ==
PROVIDERS: PCP Family Medicine; Visit Provider Family Medicine
DX: E11.9 Type 2 diabetes mellitus without complications (principal); I10 Essential (primary) hypertension; E03.9 Hypothyroidism, unspecified
CPT/HCPCS: 80053; 80061; 82607; 83036; 83735; 84443; 85025

== ENCOUNTER 2024-02-15 22:29 | Outpatient (CLI) | payer MEDICARE, BC, SELFPAY ==
[2024-02-15 23:06] LABS: Urine Appearance Cloudy (CLEAR); Urine Color Light yellow (Yellow)
[2024-02-15 23:07] LABS: Add Urine Culture? No; Add Urine Microscopic? YES; Bacteria Urine 3+ /hpf; Bilirubin Urine Neg (Negative); Blood Urine Neg (Negative); Glucose Urine UA Norm (Normal); Ketones Urine Negative (Negative); Leukocyte Esterase Urine Trace (Negative); Nitrate Urine Positive (Negative); Protein Urine Neg (Negative); RBC Urine 0-4 /hpf (0-2); Urobilinogen Urine Neg (Negative); WBC Urine 25-40 /hpf (0-5); pH Urine 5 (5-7)
== END 2024-02-15 22:30 | disposition home or self-care (01) ==
LOC: LAB 22:32
PROVIDERS: PCP Family Medicine; Visit Provider Family Medicine
DX: N39.0 Urinary tract infection, site not specified (principal)
CPT/HCPCS: 81001; 87077; 87086; 87186

== ENCOUNTER 2024-03-30 11:18 | Outpatient (CLI) | payer MEDICARE, BC, SELFPAY ==
[2024-03-30 11:48] LABS: Add Urine Microscopic? YES; Bilirubin Urine Neg (Negative); Blood Urine Neg (Negative); Glucose Urine UA Norm (Normal); Ketones Urine Negative (Negative); Leukocyte Esterase Urine 2+ (Negative); Nitrate Urine Negative (Negative); Protein Urine Neg (Negative); Specific Gravity, Urine 1.015 (1.005-1.030); Urine Appearance Slightly Cloudy (CLEAR); Urine Color Yellow (Yellow); Urobilinogen Urine Norm (Negative); pH Urine 5 (5-7)
[2024-03-30 11:49] LABS: Add Urine Culture? Yes; Bacteria Urine 2+ /hpf; RBC Urine 0-4 /hpf (0-2); Squamous Epithelial Cell Urine 0-4 /hpf (0-5); WBC Urine 25-40 /hpf (0-5)
== END 2024-03-30 11:19 | disposition home or self-care (01) ==
PROVIDERS: PCP Family Medicine; Visit Provider Family Medicine
DX: N39.0 Urinary tract infection, site not specified (principal)
CPT/HCPCS: 81001; 87077; 87086; 87186

== ENCOUNTER 2024-05-24 09:28 | Outpatient (CLI) | payer MEDICARE, BC, SELFPAY ==
--- NOTE | 2024-05-24 09:33 | FL_ITS ---
WS: [id number] FL barium swallow modifd 15067 REASON FOR EXAM: Other dysphagia FLUOROSCOPY TIME: 3min [id number] # OF SPOT FILMS: None 1 FINDINGS: Examination was supervised by the speech therapy department. The patient was examined in the sitting upright lateral projection. The swallowing of varying consistencies of barium was monitored fluoroscopically and video recorded. A detailed report of the swallowing will be rendered by the speech therapy department. FL/FL barium swallow modifd [id number] IMPRESSION: Modified barium swallow as above.
== END 2024-05-24 09:29 | disposition home or self-care (01) ==
LOC: RAD 09:29
PROVIDERS: PCP Family Medicine; Visit Provider Family Medicine
DX: R13.19 Other dysphagia (principal)
CPT/HCPCS: 74230; 92611

== ENCOUNTER 2024-08-26 11:24 | Outpatient (CLI) | payer MEDICARE, BC, SELFPAY ==
[2024-08-26 11:35] LABS: Bilirubin Urine Negative (Negative); Blood Urine Trace (Negative); Glucose Urine UA Negative (Normal); Ketones Urine Negative (Negative); Leukocyte Esterase Urine 3+ (Negative); Nitrate Urine Negative (Negative); Protein Urine 1+ (Negative); Specific Gravity, Urine 1.013 (1.005-1.030); Urine Appearance Turbid (CLEAR); Urine Color Yellow (Yellow); pH Urine 8.5 (5-7)
[2024-08-26 11:40] LABS: Add Urine Microscopic? YES; Bacteria Urine EXCEEDS /hpf; Hyaline Casts Urine 9.51 /lpf; RBC Urine 0-2 /hpf (0-2); Squamous Epithelial Cell Urine 0-5 /hpf (0-5); WBC Urine >100 /hpf (0-5)
[2024-08-26 11:59] LABS: Add Urine Culture? No
== END 2024-08-26 11:25 | disposition home or self-care (01) ==
PROVIDERS: PCP Family Medicine; Visit Provider Family Medicine
DX: N39.0 Urinary tract infection, site not specified (principal); R10.84 Generalized abdominal pain; N89.8 Other specified noninflammatory disorders of vagina
CPT/HCPCS: 81001; 87077; 87086; 87186

== ENCOUNTER 2024-11-06 19:19 | Outpatient (CLI) | payer MEDICARE, BC, SELFPAY ==
[2024-11-06 19:38] LABS: Bilirubin Urine Negative (Negative); Blood Urine Trace (Negative); Glucose Urine UA Negative (Normal); Ketones Urine Negative (Negative); Leukocyte Esterase Urine 2+ (Negative); Nitrate Urine Positive (Negative); Protein Urine Negative (Negative); Urine Appearance Cloudy (CLEAR); Urine Color Yellow (Yellow); Urobilinogen Urine 0.2 mg/dL (Negative)
[2024-11-06 19:44] LABS: Add Urine Microscopic? YES; Bacteria Urine 4+ /hpf; Hyaline Casts Urine 2.05 /lpf; RBC Urine 0-2 /hpf (0-2); Squamous Epithelial Cell Urine 0-5 /hpf (0-5); WBC Urine >100 /hpf (0-5)
[2024-11-06 19:51] LABS: Add Urine Culture? No
== END 2024-11-06 19:20 | disposition home or self-care (01) ==
PROVIDERS: PCP Family Medicine; Visit Provider Family Medicine
DX: N39.0 Urinary tract infection, site not specified (principal)
CPT/HCPCS: 81001; 87086

== ENCOUNTER 2024-11-20 17:12 | Outpatient (CLI) | payer MEDICARE, BC, SELFPAY ==
[2024-11-20 17:59] LABS: Bilirubin Urine Negative (Negative); Blood Urine Trace (Negative); Glucose Urine UA Negative (Normal); Ketones Urine Negative (Negative); Leukocyte Esterase Urine 2+ (Negative); Nitrate Urine Positive (Negative); Protein Urine Negative (Negative); Specific Gravity, Urine 1.009 (1.005-1.030); Urine Appearance Cloudy (CLEAR); Urine Color Yellow (Yellow); Urobilinogen Urine 0.2 mg/dL (Negative); pH Urine 5.5 (5-7)
[2024-11-20 18:05] LABS: Add Urine Microscopic? YES; Bacteria Urine 4+ /hpf; Hyaline Casts Urine 2.46 /lpf; RBC Urine 0-2 /hpf (0-2); Squamous Epithelial Cell Urine 0-5 /hpf (0-5); WBC Urine >100 /hpf (0-5)
[2024-11-20 18:19] LABS: Add Urine Culture? Yes
== END 2024-11-20 17:13 | disposition home or self-care (01) ==
PROVIDERS: PCP Family Medicine; Visit Provider Family Medicine
DX: N39.0 Urinary tract infection, site not specified (principal)
CPT/HCPCS: 81001; 87086

== ENCOUNTER 2025-01-12 08:44 | Outpatient (CLI) | payer MEDICARE, BC, SELFPAY ==
[2025-01-12 08:51] LABS: Add Urine Microscopic? NO
[2025-01-12 09:04] LABS: Bilirubin Urine Neg (Negative); Blood Urine Neg (Negative); Glucose Urine UA Norm (Normal); Ketones Urine Negative (Negative); Leukocyte Esterase Urine 1+ (Negative); Nitrate Urine Negative (Negative); Protein Urine Neg (Negative); Specific Gravity, Urine 1.015 (1.005-1.030); Urine Appearance Cloudy (CLEAR); Urine Color Yellow (Yellow); Urobilinogen Urine Neg (Negative); pH Urine 5 (5-7)
[2025-01-12 09:05] LABS: Charge for UA Resulting for Rev
[2025-01-12 09:17] LABS: Bacteria Urine EXCEEDS /hpf; Hyaline Casts Urine 2.46 /lpf; RBC Urine 0-2 /hpf (0-2); Squamous Epithelial Cell Urine 0-5 /hpf (0-5); WBC Urine 21-50 /hpf (0-5)
== END 2025-01-12 08:45 | disposition home or self-care (01) ==
LOC: LAB 08:47
PROVIDERS: PCP Family Medicine; Visit Provider Family Medicine
DX: N39.0 Urinary tract infection, site not specified (principal)
CPT/HCPCS: 81003; 87077; 87086; 87186

== ENCOUNTER 2025-04-30 12:36 | Outpatient (CLI) | payer MEDICARE, BC, SELFPAY ==
[2025-04-30 13:08] LABS: Glucose Urine UA Negative (Normal); Nitrate Urine Negative (Negative); Specific Gravity, Urine 1.011 (1.005-1.030)
[2025-04-30 13:13] LABS: Add Urine Microscopic? YES
== END 2025-04-30 12:37 | disposition home or self-care (01) ==
LOC: LAB 12:38
PROVIDERS: PCP Family Medicine; Visit Provider Family Medicine
DX: N39.0 Urinary tract infection, site not specified (principal)
CPT/HCPCS: 81001; 87077; 87086; 87186

== ENCOUNTER 2025-07-06 16:43 | Outpatient (CLI) | payer MEDICARE, BC, SELFPAY ==
[2025-07-06 17:13] LABS: Hematocrit 38.1 % (36-47); Hemoglobin 12.20 g/dL (11.27-16.99); Mean Corpuscular HGB Conc 32.0 g/dL (30-55); Mean Corpuscular Hemoglobin 34.1 pg (27-33); Mean Corpuscular Volume 106.4 fl (85-98); Nucleated Red Blood Cells % 0 %; Platelet Count 587 10^3/cmm (157-399); Red Blood Count 3.58 10^6/uL (3.85-5.65); White Blood Count 10.46 10^3/uL (3.29-11.43)
[2025-07-06 17:45] LABS: Alanine Aminotransferase 12 U/L (0-33); Albumin Level 4.1 g/dL (3.5-5.2); Alkaline Phosphatase 111 U/L (35-105); Anion Gap 17.6 (5-19); Aspartate Amino Transferase 16 U/L (0-32); Blood Urea Nitrogen 34 mg/dL (8-23); Calcium 10.2 mg/dL (8.5-10.5); Carbon Dioxide 26 mmol/L (22-29); Chloride 100 mmol/L (98-107); Cholesterol 119 mg/dL (0-200); Globulin 3.2 g/dL (1.3-4.6); Glucose 91 mg/dL (65-115); HDL Cholesterol 34 mg/dL (60-100); Osmolality Calculated 293 mOsm/kg (285-295); Potassium 5.6 mmol/L (3.5-5.1); Sodium 138 mmol/L (136-145); Total Protein 7.3 g/dL (6.6-8.7); Triglycerides 124 mg/dL (0-150)
== END 2025-07-06 16:44 | disposition home or self-care (01) ==
PROVIDERS: PCP Family Medicine; Visit Provider Family Medicine
DX: I10 Essential (primary) hypertension (principal)
CPT/HCPCS: 80053; 80061; 85025

== ENCOUNTER 2025-08-05 11:08 | Outpatient (CLI) | payer MEDICARE, BC, SELFPAY ==
[2025-08-05 11:28] LABS: Glucose Urine UA Negative (Normal); Nitrate Urine Negative (Negative); Specific Gravity, Urine 1.014 (1.005-1.030)
[2025-08-05 11:56] LABS: Add Urine Microscopic? YES
== END 2025-08-05 11:09 | disposition home or self-care (01) ==
PROVIDERS: PCP Family Medicine; Visit Provider Family Medicine
DX: N39.0 Urinary tract infection, site not specified (principal)
CPT/HCPCS: 81001; 87086